=== PATIENT | male | born 1940 | race Caucasian/White ===

== ENCOUNTER 2019-07-02 14:49 | Emergency (ER) | payer MEDICARE ==
--- OUTSIDE RECORDS SUMMARY | 2019-07-02 14:50 | XMS REPORT ---
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 Active unspecified stricture type Assessment Bladder wall thickening N32.89 Active Assessment Prostate cancer C61 Active Medications Medication Code Code Instructions Start End Status Dosage System Date Date Zytiga [facility] 14643430255 500 MG Orally Active 2 tablets Once a day on an empty stomach Metoprolol [facility] 51672029746 25 MG Orally Active 1 tablet Tartrate Twice a day with food Losartan ND 49758141427 50 MG Orally Active as directed Potassium Senna S [facility] 18273577222 8.6-50 MG Active 1 tablet in Orally Once a the evening day as needed Tramadol HCl ND 96309499734 50 MG Orally Active 1 tablet as Once a day needed PrednisoLONE ND 79667804502 5 MG Orally Active 1 tablet Once a day with food or milk in the morning Clopidogrel [facility] 04694562738 75 MG Orally Active 1 tablet Bisulfate Once a day Lactulose [facility] 95579415366 20 GM/30ML Active 15 ml Orally Once a day Gentamicin [facility] 24672930745 0.3 % Active 1 drop into Sulfate Ophthalmic affected every 4 hrs eye Colace [facility] 32907351142 100 MG Orally Active 1 capsule Once a day as needed Tamsulosin HCl ND 55116114879 0.4 MG Orally Active 1 capsule Once a day Gabapentin ND 76259410997 300 MG Orally Active 1 capsule Once a day Results No Known Results Summary Purpose eClinicalWorks Submission
--- OUTSIDE RECORDS SUMMARY | 2019-07-02 14:50 | XMS REPORT ---
:1940 Author Organization eClinicalWorks Care Team Providers Name Role Phone Burke Llanos Provider Role Unavailable Allergies, Adverse Reactions, Alerts Substance Reaction Event Type N.K.D.A. Info Not Available Non Drug Allergy Problems Problem Type Condition Code Onset Dates Condition Status Problem Bladder wall thickening N32.89 Active Problem Prostate cancer C61 Active Assessment Prostate cancer C61 Active Assessment Bladder wall thickening N32.89 Active Medications Medication Code Code Instructions Start End Status Dosage System Date Date Tamsulosin HCl [facility] 37280247469 0.4 MG Orally Active 1 capsule Once a day Tramadol HCl ND 53636199403 50 MG Orally Active 1 tablet as Once a day needed PrednisoLONE ND 86089865886 5 MG Orally Active 1 tablet Once a day with food or milk in the morning Clopidogrel ND 40036509146 75 MG Orally Active 1 tablet Bisulfate Once a day Losartan ND 57590055234 50 MG Orally Active as directed Potassium Senna S ND 18644515217 8.6-50 MG Active 1 tablet in Orally Once a the evening day as needed Gabapentin ND 11511681310 300 MG Orally Active 1 capsule Once a day Gentamicin [facility] 54634456446 0.3 % Active 1 drop into Sulfate Ophthalmic affected every 4 hrs eye Zytiga [facility] 18172938282 500 MG Orally Active 2 tablets Once a day on an empty stomach Metoprolol ND 81304708099 25 MG Orally Active 1 tablet Tartrate Twice a day with food Lactulose [facility] 75054928471 20 GM/30ML Active 15 ml Orally Once a day Colace ND 50244344183 100 MG Orally Active 1 capsule Once a day as needed Results No Known Results Summary Purpose eClinicalWorks Submission
--- OUTSIDE RECORDS SUMMARY | 2019-07-02 14:50 | XMS REPORT ---
:1940 [facility] Address [address] [place] [address] Care Team Providers Name Role Phone Unavailable Unavailable Unavailable Problems This patient has no known problems. Allergies, Adverse Reactions, Alerts This patient has no known allergies or adverse reactions. Medications This patient has no known medications.
--- OUTSIDE RECORDS SUMMARY | 2019-07-02 14:50 | XMS REPORT ---
:1940 Author Organization eClinicalWorks Care Team Providers Name Role Phone [place] Provider Role Unavailable Allergies No Known Allergies Problems Problem Type Condition Code Onset Dates Condition Status Problem Bladder wall thickening N32.89 Active Problem Prostate cancer C61 Active Medications Medication Code System Code Instructions Start Date End Date Status Dosage Bactrim [facility] 00623706378 400-80 MG Orally Jun 03, Jun 04, Active 1 tablet Once a day 2019 2019 Results No Known Results Summary Purpose eClinicalWorks Submission
[2019-07-02 15:58] LABS: Absolute Lymphocytes (CBC) 1.5 K/uL (0.7-4.9); Basophils % 0.5 % (0-1.3); Hematocrit 38.1 % (39.6-49.0); Lymphocytes % 18.3 % (15.3-44.8); MPV 7.8 fL (7.6-11.3)
[2019-07-02 16:15] LABS: Protime INR 0.99
--- NOTE | 2019-07-02 16:26 | RAD REPORT ---
EXAM DESCRIPTION: Augie Single View07/02/2019 3:42 pm CLINICAL HISTORY: Metastatic bone cancer/weakness COMPARISON: 2017 FINDINGS: The lungs appear clear of acute infiltrate. The heart is normal size IMPRESSION: No acute abnormalities displayed
[2019-07-02 16:33] LABS: ALT/SGPT 23 U/L (12-78); AST/SGOT 27 U/L (15-37); Albumin 2.8 g/dL (3.4-5.0); Alkaline Phosphatase 112 U/L (45-117); Amylase Level 25 U/L (25-115); BUN Blood Urea Nitrogen 13 mg/dL (7-18); Bicarbonate 26 mmol/L (21-32); Bilirubin Direct 0.4 mg/dL (0-0.2); Bilirubin Total 0.9 mg/dL (0.2-1.0); CKMB Creatine Kinase MB 1.3 ng/mL (0.3-3.6); Creatine Phosphokinase 37 U/L (39-308); Glucose Level 106 mg/dL (74-106); Lipase 58 U/L (73-393); Potassium 3.2 mmol/L (3.5-5.1); Protein, Total 5.9 g/dL (6.4-8.2); Sodium Level 143 mmol/L (136-145); Troponin (Emerg Dept Use Only) < 0.02 ng/mL (0.0-0.045)
[2019-07-02] MEDS ORDERED: NA CHLORIDE 0.9% 500 ML ONE (16:42)
[2019-07-02 17:03] LABS: Urine Blood NEGATIVE (NEG); Urine Glucose NEGATIVE (NEG); Urine Protein NEGATIVE (NEG); Urine pH 5.5 (5.0-7.0)
[2019-07-02 17:11] LABS: Urine Bacteria <20 /HPF (NONE SEEN); Urine Culture Reflex Order NOT NEEDED; Urine RBC <5 /HPF (NONE SEEN)
[2019-07-02 17:12] LABS: Urine Mucus SLIGHT /HPF (NONE SEEN)
--- NOTE | 2019-07-02 18:32 | EDPHYS ---
Physician Documentation [facility] Name: Mk Paredes Age: 78 yrs Sex: Male : 1940 Arrival Date: 07/02/2019 Time: 14:53 Bed 14 Private MD: IRIS Physician Roque Bravo HPI: 07/02 15:36 This 78 yrs old Male presents to ER via Wheelchair with complaints of pm1 Weakness. 15:36 Onset: The symptoms/episode began/occurred yesterday. Associated signs and symptoms: pm1 Pertinent negatives: abdominal pain, chest pain, diarrhea, dysuria, fever, headache, shortness of breath, vomiting. Modifying factors: The patient symptoms are alleviated by nothing, the patient symptoms are aggravated by Patient reports poor sleep recently. Patient's daughter brought him tot ER today with complaints of weakness and lethargy. Patient denies any complaints except for poor sleep. The family is concerned that he might be dehydrated. They believe that he does not drink enough fluids. Historical: - Allergies: 15:36 No Known Allergies; ca1 - Home Meds: 15:36 losaratan Potassium [Active]; Prednisone Oral [Active]; tamsulosin 0.4 mg Oral cp24 1 ca1 cap once daily [Active]; aspirin 81 mg Oral chew 1 tab once daily [Active]; Furosemide Oral [Active]; Metoprolol Tartrate Oral [Active]; Doxycycline Oral [Active]; Zytiga oral oral [Active]; - PMHx: 15:36 Hypertension; Prostate Cancer; ca1 - PSHx: 15:36 Heart stents; ca1 - Immunization history:: Adult Immunizations up to date, Pneumococcal vaccine is up to date, Flu vaccine is up to date. - Coronavirus screen:: The patient has NOT traveled to [place] in the past 14 days. The patient has NOT had contact with known/suspected case of Coronavirus?. - Social history:: Smoking status: Patient denies any tobacco usage or history of. - Ebola Screening: : Patient negative for fever greater than or equal to 101.5 degrees Fahrenheit, and additional compatible Ebola Virus Disease symptoms Patient denies exposure to infectious person Patient denies travel to an Ebola-affected area in the 21 days before illness onset No symptoms or risks identified at this time. ROS: 15:36 Eyes: Negative for injury, pain, redness, and discharge, ENT: Negative for injury, pm1 pain, and discharge, Neck: Negative for injury, pain, and swelling, Cardiovascular: Negative for chest pain, palpitations, and edema, Respiratory: Negative for shortness of breath, cough, wheezing, and pleuritic chest pain, Abdomen/GI: Negative for abdominal pain, nausea, vomiting, diarrhea, and constipation, Back: Negative for injury and pain, : Negative for injury, bleeding, discharge, and swelling, MS/Extremity: Negative for injury and deformity, Skin: Negative for injury, rash, and discoloration. 15:36 Constitutional: Negative for fever, chills, and weight loss. 15:36 Neuro: Positive for generalized weakness, Negative for altered mental status, headache. Exam: 15:36 Constitutional: This is a well developed, well nourished patient who is awake, alert, pm1 and in no acute distress. Head/Face: Normocephalic, atraumatic. ENT: Nares patent. No nasal discharge, no septal abnormalities noted. Tympanic membranes are normal and external auditory canals are clear. Oropharynx with no redness, swelling, or masses, exudates, or evidence of obstruction, uvula midline. Mucous membranes moist. Neck: Trachea midline, no thyromegaly or masses palpated, and no cervical lymphadenopathy. Supple, full range of motion without nuchal rigidity, or vertebral point tenderness. No Meningismus. Chest/axilla: Normal chest wall appearance and motion. Nontender with no deformity. No lesions are appreciated. Respiratory: Lungs have equal breath sounds bilaterally, clear to auscultation and percussion. No rales, rhonchi or wheezes noted. No increased work of breathing, no retractions or nasal flaring. Abdomen/GI: Soft, non-tender, with normal bowel sounds. No distension or tympany. No guarding or rebound. No evidence of tenderness throughout. Back: No spinal tenderness. No costovertebral tenderness. Full range of motion. Skin: Warm, dry with normal turgor. Normal color with no rashes, no lesions, and no evidence of cellulitis. MS/ Extremity: Pulses equal, no cyanosis. Neurovascular intact. Full, normal range of motion. 15:36 Cardiovascular: Rate: tachycardic, Rhythm: regular, Pulses: no pulse deficits are appreciated, Heart sounds: normal, Edema: is not appreciated. Vital Signs: 15:36 BP 115 / 57; Pulse 113; Resp 17 S; Temp 98.1(O); Pulse Ox 97% on R/A; Weight 81.65 kg ca1 (R); Height 5 ft. 8 in. (172.72 cm) (R); Pain 0/10; 16:00 BP 105 / 51; Pulse 102; Resp 16 S; Pulse Ox 99% on R/A; ca1 16:30 BP 122 / 60; Pulse 97; Resp 19 S; Pulse Ox 99% on R/A; ca1 16:55 BP 124 / 50 Supine; Pulse 97; Resp 15 S; Pulse Ox 98% on R/A; ca1 16:57 BP 130 / 69 Sitting; Pulse 135; Resp 14 S; Pulse Ox 96% on R/A; ca1 17:10 BP 111 / 53; Pulse 95; Resp 18 S; Pulse Ox 100% on R/A; ca1 17:57 BP 117 / 60; Pulse 92; Resp 15 S; Pulse Ox 100% on R/A; ca1 18:45 BP 127 / 61; Pulse 92; Resp 16 S; Pulse Ox 97% on R/A; ca1 15:36 Body Mass Index 27.37 (81.65 kg, 172.72 cm) ca1 MDM: 15:12 Patient medically screened. 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 This is likely the pm1 cause for his elevated lactate. Patient without fever or signs of sepsis. 18:30 Data reviewed: vital signs. Data interpreted: Pulse oximetry: on room air is 100 %. pm1 Interpretation: normal. Counseling: I had a detailed discussion with the patient and/or guardian regarding: the historical points, exam findings, and any diagnostic results supporting the discharge/admit diagnosis, lab results, radiology results, the need for outpatient follow up, to return to the emergency department if symptoms worsen or persist or if there are any questions or concerns that arise at home. 07/02 15:23 Order name: Amylase, Serum pm1 07/02 15:23 Order name: Basic Metabolic Panel pm1 07/02 15:23 Order name: Blood Culture Adult (2) pm1 07/02 15:23 Order name: CBC with Diff pm1 07/02 15:23 Order name: Ckmb pm07/02 15:23 Order name: CPK pm1 11 15:23 Order name: Lactate pm07/02 15:23 Order name: LFT's pm07/02 15:23 Order name: Lipase pm07/02 15:23 Order name: Procalcitonin pm07/02 15:23 Order name: Protime (+inr) pm1 07/02 15:23 Order name: Ptt, Activated pm07/02 15:23 Order name: Troponin (emerg Dept Use Only) pm07/02 15:23 Order name: Urine Microscopic Only pm07/02 15:23 Order name: Chest Single View XRAY pm07/02 16:13 Order name: CBC with Automated Diff; Complete Time: 16:29 EDMS 07/02 16:25 Order name: Protime (+INR); Complete Time: 16:29 EDMS 07/02 16:25 Order name: PTT, Activated Partial Thromb; Complete Time: 16:29 EDMS 07/02 16:31 Order name: Lactate; Complete Time: 16:31 EDMS 07/02 16:34 Order name: Basic Metabolic Panel; Complete Time: 16:47 EDMS 07/02 16:34 Order name: Liver (Hepatic) Function; Complete Time: 16:47 EDMS 07/02 16:35 Order name: Creatine Phosphokinase; Complete Time: 16:47 EDMS 07/02 16:35 Order name: CKMB Creatine Kinase MB; Complete Time: 16:47 EDMS 07/02 16:35 Order name: Troponin (Emerg Dept Use Only); Complete Time: 16:47 EDMS 07/02 16:35 Order name: Amylase Level; Complete Time: 16:47 EDMS 07/02 16:35 Order name: Lipase; Complete Time: 16:47 EDMS 07/02 16:48 Order name: Procalcitonin; Complete Time: 16:50 EDMS 07/02 16:53 Order name: Urine Dipstick--Ancillary (enter results) 07/02 17:03 Order name: Urine Dipstick-Ancillary; Complete Time: 17:19 EDMS 07/02 17:13 Order name: Urine Microscopic Only; Complete Time: 17:19 EDMS 07/02 15:23 Order name: Accucheck; Complete Time: 16:13 pm07/02 15:23 Order name: Cardiac monitoring; Complete Time: 16:13 pm1 07/02 15:23 Order name: EKG - Nurse/Tech; Complete Time: 16:23 pm1 07/02 15:23 Order name: IV Saline Lock - Large Bore; Complete Time: 16:23 pm1 07/02 15:23 Order name: Labs collected and sent; Complete Time: 16:23 pm1 07/02 15:23 Order name: O2 Per Protocol; Complete Time: 16:23 pm1 07/02 15:23 Order name: O2 Sat Monitoring; Complete Time: 16:24 pm1 07/02 15:23 Order name: Urine Dipstick-Ancillary (obtain specimen); Complete Time: 17:57 pm1 07/02 16:31 Order name: RAD; Complete Time: 16:31 EDIN 07/02 16:31 Order name: Orthostatics; Complete Time: 17:06 pm1 Administered Medications: 17:00 Drug: NS 0.9% 500 ml Route: IV; Rate: bolus; Site: right antecubital; ca1 17:57 Follow up: Response: No adverse reaction; IV Status: Completed infusion ca1 Disposition: 07/02/19 18:31 Discharged to Home. Impression: Dehydration. - Condition is Stable. - Discharge Instructions: Dehydration, Elderly, Rehydration, Elderly. - Medication Reconciliation Form, Thank You Letter, Antibiotic Education, Prescription Opioid Use form. - Follow up: Emergency Department; When: As needed; Reason: Worsening of condition. Follow up: Private Physician; When: 2 - 3 days; Reason: Recheck today's complaints, Continuance of care, Re-evaluation by your physician. - Problem is new. - Symptoms have improved. Addendum: 07/04/2019 08:02 Co-signature as Attending Physician, Roque Bravo MD I agree with the assessment and c bray plan of care. Signatures: Dispatcher [employer] Roque Cole MD MD cha Marinas, Patrick, CELL PREPARER CELL PREPARER pm1 Phyllis Altman RN RN ca1 Corrections: (The following items were deleted from the chart) 07/02 18:52 18:31 07/02/2019 18:31 Discharged to Home. Impression: Dehydration. Condition is ca1 Stable. Forms are Medication Reconciliation Form, Thank You Letter, Antibiotic Education, Prescription Opioid Use. Follow up: Emergency Department; When: As needed; Reason: Worsening of condition. Follow up: Private Physician; When: 2 - 3 days; Reason: Recheck today's complaints, Continuance of care, Re-evaluation by your physician. Problem is new. Symptoms have improved. pm1
--- NOTE | 2019-07-02 18:32 | ER ---
Nurse's Notes [facility] Name: Mk Paredes Age: 78 yrs Sex: Male : 1940 Arrival Date: 07/02/2019 Time: 14:53 Bed 14 Private MD: Diagnosis: Dehydration Presentation: 07/02 15:10 Presenting complaint: Child states: He bray been lethargic sinc yesterday. He seems ca1 dehydrated too. 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 And is taking chemo pills and prednisone. Transition of care: patient was not received from another setting of care. Onset of symptoms was July 02, 2019. Risk Assessment: Do you want to hurt yourself or someone else? Patient reports no desire to harm self or others. Initial Sepsis Screen: Does the patient meet any 2 criteria? No. Patient's initial sepsis screen is negative. Does the patient have a suspected source of infection? No. Patient's initial sepsis screen is negative. Care prior to arrival: None. 15:10 Method Of Arrival: Wheelchair ca1 15:10 Acuity: SILVIA 2 ca1 Historical: - Allergies: 15:36 No Known Allergies; ca1 - Home Meds: 15:36 losaratan Potassium [Active]; Prednisone Oral [Active]; tamsulosin 0.4 mg Oral cp24 1 ca1 cap once daily [Active]; aspirin 81 mg Oral chew 1 tab once daily [Active]; Furosemide Oral [Active]; Metoprolol Tartrate Oral [Active]; Doxycycline Oral [Active]; Zytiga oral oral [Active]; - PMHx: 15:36 Hypertension; Prostate Cancer; ca1 - PSHx: 15:36 Heart stents; ca1 - Immunization history:: Adult Immunizations up to date, Pneumococcal vaccine is up to date, Flu vaccine is up to date. - Coronavirus screen:: The patient has NOT traveled to [place] in the past 14 days. The patient has NOT had contact with known/suspected case of Coronavirus?. - Social history:: Smoking status: Patient denies any tobacco usage or history of. - Ebola Screening: : Patient negative for fever greater than or equal to 101.5 degrees Fahrenheit, and additional compatible Ebola Virus Disease symptoms Patient denies exposure to infectious person Patient denies travel to an Ebola-affected area in the 21 days before illness onset No symptoms or risks identified at this time. Screenin:15 Abuse screen: Denies threats or abuse. Denies injuries from another. Nutritional ca1 screening: No deficits noted. Tuberculosis screening: No symptoms or risk factors identified. Fall Risk Fall in past 12 months (25 points). IV access (20 points). Ambulatory Aid- Crutches/Cane/Walker (15 pts). Gait- Weak (10 pts.). Total Barr Fall Scale indicates High Risk Score (45 or more points). Fall prevention measures have been instituted. Side Rails Up X 2 Family Present and informed to notify staff if the need to leave the bedside As available patient and family educated on Fall Prevention Program and Strategies. Assessment: 15:15 General: Appears in no apparent distress. comfortable, Behavior is calm, cooperative, ca1 appropriate for age. Pain: Denies pain. Neuro: Level of Consciousness is awake, alert, obeys commands, Oriented to person, place, time, situation, Appropriate for age. Cardiovascular: Heart tones S1 S2 present Capillary refill < 3 seconds Patient's skin is warm and dry. Cardiovascular: Edema is 1+ to left ankle, left foot, right ankle and right foot. Respiratory: Airway is patent Respiratory effort is even, unlabored, Respiratory pattern is regular, symmetrical, Breath sounds are clear bilaterally. GI: Abdomen is round non-distended, Bowel sounds present X 4 quads. Abd is soft and non tender X 4 quads. : No signs and/or symptoms were reported regarding the genitourinary system. EENT: No signs and/or symptoms were reported regarding the EENT system. Derm: Skin is intact, is healthy with good turgor, Skin is pink, warm \T\ dry. Musculoskeletal: Circulation, motion, and sensation intact. Capillary refill < 3 seconds, Range of motion: intact in all extremities, Swelling present in left leg. 16:20 Reassessment: Patient appears in no apparent distress at this time. No changes from ca1 previously documented assessment. Patient and/or family updated on plan of care and expected duration. Pain level reassessed. Patient is alert, oriented x 3, equal unlabored respirations, skin warm/dry/pink. 16:30 Reassessment: CRITICAL LAB: LAC 3.4. Notified provider. ca1 17:06 Reassessment: Patient appears in no apparent distress at this time. Patient is alert, ca1 oriented x 3, equal unlabored respirations, skin warm/dry/pink. Orthostatics done. Pt tachycardic upon position changes. Terminated procedure at sitting. Notified provider. 17:46 Reassessment: Patient appears in no apparent distress at this time. Patient and/or ca1 family updated on plan of care and expected duration. Pain level reassessed. Patient is alert, oriented x 3, equal unlabored respirations, skin warm/dry/pink. No complaints at this time. 18:45 Reassessment: Patient appears in no apparent distress at this time. Patient is alert, ca1 oriented x 3, equal unlabored respirations, skin warm/dry/pink. Vital Signs: 15:36 BP 115 / 57; Pulse 113; Resp 17 S; Temp 98.1(O); Pulse Ox 97% on R/A; Weight 81.65 kg ca1 (R); Height 5 ft. 8 in. (172.72 cm) (R); Pain 0/10; 16:00 BP 105 / 51; Pulse 102; Resp 16 S; Pulse Ox 99% on R/A; ca1 16:30 BP 122 / 60; Pulse 97; Resp 19 S; Pulse Ox 99% on R/A; ca1 16:55 BP 124 / 50 Supine; Pulse 97; Resp 15 S; Pulse Ox 98% on R/A; ca1 16:57 BP 130 / 69 Sitting; Pulse 135; Resp 14 S; Pulse Ox 96% on R/A; ca1 17:10 BP 111 / 53; Pulse 95; Resp 18 S; Pulse Ox 100% on R/A; ca1 17:57 BP 117 / 60; Pulse 92; Resp 15 S; Pulse Ox 100% on R/A; ca1 18:45 BP 127 / 61; Pulse 92; Resp 16 S; Pulse Ox 97% on R/A; ca1 15:36 Body Mass Index 27.37 (81.65 kg, 172.72 cm) ca1 ED Course: 14:53 Patient arrived in ED. as 15:09 Alli Fallon NP is PHCP. pm1 15:09 Roque Bravo MD is Attending Physician. pm1 15:10 Phyllis Altman RN is Primary Nurse. ca1 15:15 Patient has correct armband on for positive identification. Placed in gown. Bed in low ca1 position. Call light in reach. Side rails up X2. panel monitor on. Pulse ox on. NIBP on. Warm blanket given. 15:31 Triage completed. ca1 15:36 Arm band placed on right wrist. ca1 15:48 No provider procedures requiring assistance completed. Inserted saline lock: 20 gauge ca1 in right antecubital area, using aseptic technique. Blood collected. 15:48 Initial lab(s) drawn, by me, sent to lab. First set of blood cultures drawn by me. ca1 16:08 Second set of blood cultures drawn by me. ca1 18:51 IV discontinued, intact, bleeding controlled, No redness/swelling at site. Pressure ca1 dressing applied. Administered Medications: 17:00 Drug: NS 0.9% 500 ml Route: IV; Rate: bolus; Site: right antecubital; ca1 17:57 Follow up: Response: No adverse reaction; IV Status: Completed infusion ca1 Outcome: 18:31 Discharge ordered by MD. pm1 18:51 Discharged to home ambulatory, with family. ca1 18:51 Condition: stable 18:51 Discharge instructions given to patient, family, Instructed on discharge instructions, follow up and referral plans. Demonstrated understanding of instructions, follow-up care. 18:52 Patient left the ED. ca1 Signatures: Mora Siddiqui Patrick, BUSINESS MAIL ENTRY CLERK BUSINESS MAIL ENTRY CLERK pm1 Phyllis Altman RN RN ca1
--- NOTE | 2019-07-03 08:54 | EKG ---
Test Date: 2019-07-02 Test Time: 16:10:14 Mime Artist: RV MEASUREMENT RESULTS: Intervals: Rate: 102 DE: 160 QRSD: 64 QT: 330 QTc: 430 [place]: P: 51 DE: 160 QRS: 50 T: 49 INTERPRETIVE STATEMENTS: Sinus tachycardia with premature atrial complexes Low voltage QRS Nonspecific ST and T wave abnormality Abnormal ECG Compared to ECG 02/04/2018 16:38:30 Atrial premature complex(es) now present Low QRS voltage now present ST (T wave) deviation still present Electronically Signed On 07-03-19 08:52:53 MULTI SHARE PROGRAM COORDINATOR by Apolinar Garcia
[2019-07-04 09:48] VITALS: TEMP 98.1
[2019-07-04 09:56] VITALS: BP 127/61; O2SAT 97
== END 2019-07-02 18:52 | disposition home or self-care (01) ==
LOC: ER 14:49
DX: E86.0 Dehydration (principal); I10 Essential (primary) hypertension; Z85.46 Personal history of malignant neoplasm of prostate
CPT/HCPCS: 93005; 87040 ×2; 85025; 80048; 36415; 82150; 82550; 85610; 80076; 83605; 85730; 84484; 82553; 83690; 84145; 71045; 96360; 99284; J7040; 81003; 81015

== ENCOUNTER 2020-02-24 19:28 | Observation (INO) | payer MEDICARE ==
[2020-02-24 20:30] LABS: Absolute Lymphocytes (CBC) 0.9 K/uL (0.7-4.9); Basophils % 0.3 % (0-1.3); Hematocrit 38.5 % (39.6-49.0); Lymphocytes % 6.9 % (15.3-44.8); MPV 7.6 fL (7.6-11.3)
[2020-02-24 20:31] LABS: Protime INR 0.97
--- NOTE | 2020-02-24 20:35 | RAD REPORT ---
EXAM DESCRIPTION: CT - [id number] - 02/24/2020 8:26 pm CLINICAL HISTORY: Trauma, head and neck injury. fall, weakness COMPARISON: CT HEAD CSPINE MPR WO CONTRAST dated 04/07/2015; RAD THERAPY FLD PLACE NECK dated 013 TECHNIQUE: Axial 5 mm thick images of the head were obtained. Axial 2 mm thick images of the cervical spine were obtained with sagittal and coronal reconstruction images generated and reviewed. All CT scans are performed using dose optimization technique as appropriate and may include automated exposure control or mA/KV adjustment according to patient size. FINDINGS: CT HEAD WITHOUT CONTRAST: No acute hemorrhage, hydrocephalus or extra-axial collection is identified.Advanced brain atrophy.No areas of brain edema or midline shift. Previous right mastoidectomy noted. The left mastoid appears clear. The paranasal sinuses are clear.T he calvarium is intact. CT CERVICAL SPINE WITHOUT CONTRAST: No fracture or subluxation.Mild lower cervical spondylosis.No prevertebral soft tissues swelling is i dentified. Mild carotid atherosclerosis. IMPRESSION: No acute intracranial or cervical spine findings.
[2020-02-24 20:43] LABS: Magnesium 2.4 mg/dL (1.8-2.4); Potassium 3.4 mmol/L (3.5-5.1); Troponin (Emerg Dept Use Only) 0.03 ng/mL (0.0-0.045)
--- NOTE | 2020-02-24 20:48 | RAD REPORT ---
EXAM DESCRIPTION: RAD - Pelvis - 02/24/2020 8:33 pm CLINICAL HISTORY: fall COMPARISON: Pelvis dated 02/04/2018 FINDINGS: No fracture or dislocation evident.
[2020-02-24] MEDS ORDERED: NA CHLORIDE 0.9% 250 ML ONE (22:02)
[2020-02-24 22:12] LABS: Blood Morphology Comment NOT SEEN (NOT SEEN); Platelet Estimate ADEQ
--- NOTE | 2020-02-24 22:19 | EDPHYS ---
Physician Documentation [facility] Name: Mk Paredes Age: 79 yrs Sex: Male : 1940 Arrival Date: 02/24/2020 Time: 19:29 Bed 2 Private MD: ED Physician Ishmael Wang HPI: 02/23 19:50 This 79 yrs old Male presents to ER via EMS with complaints of Weakness. cp 19:50 The patient presents to the emergency department with weakness of the right leg and cp left leg. 19:50 Onset: The symptoms/episode began/occurred today. cp 19:50 Patient's baseline: Neuro: alert and fully oriented, Motor: no deficits, Ambulation: cp walks with assist only, uses walker, Speech: normal. Patient reports he slid out of chair earlier today and was unable to get himself up off ground. Patient was found by family after approximately 6 hours of lying on ground. Historical: - Allergies: 19:39 No Known Allergies; jb4 - Home Meds: 19:39 Furosemide Oral [Active]; losaratan Potassium [Active]; tamsulosin 0.4 mg Oral cp24 1 jb4 cap once daily [Active]; Prednisone Oral [Active]; mematine [Active]; abiraterone oral oral [Active]; - PMHx: 19:39 Prostate Cancer; Hypertension; Dementia; jb4 - PSHx: 19:39 Heart stents; jb4 - Immunization history:: Adult Immunizations up to date. - Social history:: Smoking status: Patient denies any tobacco usage or history of. Patient/guardian denies using alcohol, street drugs. ROS: 19:55 Constitutional: Negative for body aches, chills, fever, poor PO intake. cp 19:55 Eyes: Negative for injury, pain, redness, and discharge. cp 19:55 ENT: Negative for ear pain, sore throat. cp 19:55 Cardiovascular: Negative for chest pain, palpitations. 19:55 Respiratory: Negative for cough, shortness of breath, wheezing. 19:55 Abdomen/GI: Negative for abdominal pain, nausea, vomiting, and diarrhea. 19:55 Neuro: Positive for weakness, Negative for altered mental status, headache, loss of cp consciousness, syncope. 19:55 All other systems are negative. Exam: 20:00 Constitutional: The patient appears in no acute distress, alert, awake, cp non-diaphoretic, non-toxic, well developed, well nourished. 20:00 Head/Face: Normocephalic, atraumatic. cp 20:00 Eyes: Periorbital structures: appear normal, Conjunctiva: normal, no exudate, no cp injection, Sclera: no appreciated abnormality, Lids and lashes: appear normal, bilaterally. 20:00 ENT: External ear(s): are unremarkable, Nose: is normal, Mouth: Lips: moist, Oral cp mucosa: moist, Posterior pharynx: Airway: no evidence of obstruction, patent. 20:00 Neck: C-spine: vertebral tenderness, is not appreciated, crepitus, is not appreciated, ROM/movement: is normal, is supple, without pain, no range of motions limitations. 20:00 Chest/axilla: Inspection: normal, Palpation: is normal, no crepitus, no tenderness. 20:00 Cardiovascular: Rate: tachycardic, Rhythm: regular, JVD: is not appreciated. 20:00 Respiratory: the patient does not display signs of respiratory distress, Respirations: normal, no use of accessory muscles, no retractions, labored breathing, is not present, Breath sounds: are clear throughout, no decreased breath sounds. 20:00 Abdomen/GI: Inspection: abdomen appears normal, Bowel sounds: active, all quadrants, Palpation: abdomen is soft and non-tender, in all quadrants, rebound tenderness, is not appreciated, voluntary guarding, is not appreciated, involuntary guarding, is not appreciated. 20:00 Back: pain, is absent. 20:00 Musculoskeletal/extremity: Exam is negative for deformity, injury. 20:00 Skin: cellulitis, is not appreciated, no rash present. 20:00 Neuro: Orientation: to person, place \T\ time. Mentation: is normal, Motor: general weakness in lower limbs, Sensation: no obvious gross deficits. 20:15 ECG was reviewed by the Attending Physician. cp Vital Signs: 19:31 BP 147 / 94; Pulse 110; Resp 16; Temp 98.1(TE); Pulse Ox 97% on R/A; Weight 90.72 kg jb4 (R); Height 5 ft. 8 in. (172.72 cm) (R); Pain 7/10; 21:00 BP 115 / 67; Pulse 99; Resp 16; Pulse Ox 97% on R/A; Pain 0/10; jb4 22:00 BP 143 / 79; Pulse 101; Resp 12; Pulse Ox 98% on R/A; Pain 0/10; jb4 23:00 BP 145 / 87; Pulse 99; Resp 16; Pulse Ox 96% on R/A; jb4 19:31 Body Mass Index 30.41 (90.72 kg, 172.72 cm) 4 MDM: 19:45 Patient medically screened. cp 22:15 Data reviewed: vital signs, nurses notes, lab test result(s), EKG, radiologic studies, cp CT scan. 22:17 Physician consultation: Kendall Branham MD was called at 22:10, was contacted at 22:10, regarding admission, to the telemetry unit. patient's condition. 02/23 19:47 Order name: Basic Metabolic Panel; Complete Time: 21:05 cp 02/23 21:06 Interpretation: Normal except: K 3.4; GLUC 130; BUN 26; GFR 54. cp 02/23 19:47 Order name: CBC with Diff; Complete Time: 22:18 cp 02/23 21:06 Interpretation: Normal except: WBC 12.6; RBC 3.90; HGB 12.9; HCT 38.5; MCV 98.8; STEPHANIE% cp 87.3; LYM% 6.9; NEUT A 11.0. 02/23 19:47 Order name: Magnesium; Complete Time: 21:05 cp 02/23 19:47 Order name: PT-INR; Complete Time: 21:05 cp 02/23 19:47 Order name: Troponin (emerg Dept Use Only); Complete Time: 21:05 cp 02/23 22:08 Interpretation: Reviewed. cp 02/23 19:47 Order name: Urine Microscopic Only; Complete Time: 23:05 cp 02/23 23:05 Interpretation: Normal except: URBC 20-50. cp 02/23 19:47 Order name: CPK; Complete Time: 21:05 cp 02/23 21:06 Interpretation: Abnormal: CPK 730. cp 02/23 20:40 Order name: Manual Differential; Complete Time: 22:18 EDMS 02/23 22:19 Interpretation: Normal except: BANDS [F] 5; LYM 8. cp 02/23 22:21 Order name: Procalcitonin cp 02/23 22:21 Order name: Blood Culture Adult (2) cp 02/23 22:21 Order name: Lactate cp 02/23 22:35 Order name: Urine Dipstick--Ancillary (enter results); Complete Time: 23:05 ds4 02/23 23:10 Order name: Basic Metabolic Panel EDMS 02/23 23:10 Order name: Basic Metabolic Panel EDMS 02/23 19:47 Order name: EKG; Complete Time: 19:48 cp 02/23 19:47 Order name: Cardiac monitoring; Complete Time: 19:55 cp 02/23 19:47 Order name: EKG - Nurse/Tech; Complete Time: 20:10 cp 02/23 19:47 Order name: IV Saline Lock; Complete Time: 19:55 cp 02/23 19:47 Order name: Labs collected and sent; Complete Time: 20:10 cp 02/23 19:47 Order name: O2 Per Protocol; Complete Time: 19:55 cp 02/23 19:47 Order name: XRAY Pelvis; Complete Time: 21:05 cp 02/23 19:47 Order name: CT Head C Spine; Complete Time: 21:05 cp 02/23 23:10 Order name: Consistent Carb (ADA) 1800 Nemesio EDMS 02/23 23:10 Order name: CBC with Automated Diff EDMS 02/23 23:10 Order name: CBC with Automated Diff EDMS 02/23 19:47 Order name: O2 Sat Monitoring; Complete Time: 19:55 cp 02/23 19:47 Order name: Urine Dipstick-Ancillary (obtain specimen); Complete Time: 21:27 cp EC:15 Rate is 102 beats/min. Rhythm is regular. MS interval is normal. QRS interval is cp normal. QT interval is normal. T waves are Inverted in lead III. Interpreted by me. Reviewed by me. Administered Medications: 21:58 Drug: NS 0.9% 250 ml Route: IV; Rate: bolus; Site: right antecubital; jb4 23:23 Follow up: Response: No adverse reaction; IV Status: Completed infusion jb4 23:01 Drug: NS 0.9% 1000 ml Route: IV; Rate: 75 ml/hr; Site: right antecubital; jb4 23:22 Follow up: Response: No adverse reaction; IV Status: Infusion continued upon admission jb4 23:20 Drug: Rocephin 1 grams Route: IV; Rate: calculated rate; Site: right antecubital; 23:22 Follow up: Response: No adverse reaction; IV Status: Completed infusion jb 23:41 Drug: NS 0.9% 1000 ml Route: IV; Rate: 1 bolus; Site: right antecubital; 23:41 Drug: NS 0.9% 1000 ml Route: IV; Rate: 1 bolus; Site: right antecubital; Disposition: 02/24 07:07 Co-signature as Attending Physician, Ishmael Wang MD. [email or web address] Disposition: 02/24/20 22:18 Hospitalization ordered by Kendall Branham for Observation. Preliminary diagnosis are Weakness, Rhabdomyolysis. - Bed requested for Telemetry/MedSurg (observation). - Status is Observation. - Condition is Stable. - Problem is new. - Symptoms are unchanged. Signatures: Dispatcher [employer] EDMS Roque Walker PA PA cp Garcia, Cindy, RN RN Bebeto Bai RN RN [facility] Kiana Moncada Ishmael Wang MD MD [email or web address] Corrections: (The following items were deleted from the chart) 02/23 22:33 22:[address] [facility] 23:14 22:18 Hospitalization Ordered by Kendall Branham MD for Observation. Preliminary cg diagnosis is Weakness; Rhabdomyolysis. Bed requested for Telemetry/MedSurg (observation). Status is Observation. Condition is Stable. Problem is new. Symptoms are unchanged. 02/24 00:06 02/23 23:14 02/24/2020 22:18 Hospitalization Ordered by Kendall Branham MD for Observation. Preliminary diagnosis is Weakness; Rhabdomyolysis. Bed requested for Telemetry/MedSurg (observation). Status is Observation. Condition is Stable. Problem is new. Symptoms are unchanged. cg
--- NOTE | 2020-02-24 22:19 | ER ---
Nurse's Notes [facility] Name: Mk Paredes Age: 79 yrs Sex: Male : 1940 Arrival Date: 02/24/2020 Time: 19:29 Bed 2 Private MD: Diagnosis: Weakness;Rhabdomyolysis Presentation: 02/23 19:31 Chief complaint: EMS states: PT slid out of his chair at home and was on the ground for jb4 6 hours. Normally the patient is able to get up and ambulate with a walker. His legs were in an abnormal position under him and he was too weak to stand. Coronavirus screen: Client denies travel out of the [place] in the last 14 days. At this time, the client does not indicate any symptoms associated with coronavirus-19. Ebola Screen: No symptoms or risks identified at this time. Initial Sepsis Screen: Does the patient meet any 2 criteria? HR > 90 bpm. Yes Does the patient have a suspected source of infection? No. Patient's initial sepsis screen is negative. Risk Assessment: Do you want to hurt yourself or someone else? Patient reports no desire to harm self or others. Onset of symptoms was February 24, 2020. Transition of care: patient was not received from another setting of care. 19:31 Method Of Arrival: EMS: [facility] jb4 19:31 Acuity: SILVIA 3 jb4 Historical: - Allergies: 19:39 No Known Allergies; jb4 - Home Meds: 19:39 Furosemide Oral [Active]; losaratan Potassium [Active]; tamsulosin 0.4 mg Oral cp24 1 jb4 cap once daily [Active]; Prednisone Oral [Active]; mematine [Active]; abiraterone oral oral [Active]; - PMHx: 19:39 Prostate Cancer; Hypertension; Dementia; jb4 - PSHx: 19:39 Heart stents; jb4 - Immunization history:: Adult Immunizations up to date. - Social history:: Smoking status: Patient denies any tobacco usage or history of. Patient/guardian denies using alcohol, street drugs. Screenin:46 Abuse screen: Denies threats or abuse. Nutritional screening: No deficits noted. jb4 Tuberculosis screening: No symptoms or risk factors identified. Fall Risk Fall in past 12 months (25 points). Secondary diagnosis (15 points) dementia, IV access (20 points). Gait- Weak (10 pts.). Mental Status- Oriented to own ability (0 pts). Total Barr Fall Scale indicates High Risk Score (45 or more points). Fall prevention measures have been instituted. Side Rails Up X 2 Placed Close to Nursing Station 1:1 Attendant Assigned Family Present and informed to notify staff if the need to leave the bedside As available patient and family educated on Fall Prevention Program and Strategies. Assessment: 19:46 General: Appears in no apparent distress. comfortable, Behavior is calm, cooperative, jb4 appropriate for age. Pain: Denies pain. Neuro: Level of Consciousness is awake, alert, obeys commands, Oriented to person, place, time, situation. Cardiovascular: Patient's skin is warm and dry. Pulses are 2+ in right dorsalis pedis artery and left dorsalis pedis artery. Respiratory: Airway is patent Respiratory effort is even, unlabored, Respiratory pattern is regular, symmetrical. GI: No signs and/or symptoms were reported involving the gastrointestinal system. : No signs and/or symptoms were reported regarding the genitourinary system. EENT: No signs and/or symptoms were reported regarding the EENT system. Derm: Skin is intact, Skin is pink, warm \T\ dry. Musculoskeletal: Circulation, motion, and sensation intact. Capillary refill is > 3 seconds, in bilateral toes. Range of motion: Swelling present in lateral aspect of right calf, right calf, medial aspect of right calf, right torres, lateral aspect of left calf, left calf, medial aspect of left calf and left torres. 21:00 Reassessment: Patient and/or family updated on plan of care and expected duration. Pain jb4 level reassessed. PT is resting in bed with eyes closed, respirations are even and unlabored. No s/s of pain or distress are noted. Family remains at the bedside. 22:00 Reassessment: Patient appears in no apparent distress at this time. Patient and/or jb4 family updated on plan of care and expected duration. Pain level reassessed. Patient is alert, oriented x 3, equal unlabored respirations, skin warm/dry/pink. Pt assisted with changing his brief. Peritoneal care performed. 23:00 Reassessment: Patient appears in no apparent distress at this time. Patient and/or jb4 family updated on plan of care and expected duration. Pain level reassessed. Patient is alert, oriented x 3, equal unlabored respirations, skin warm/dry/pink. Vital Signs: 19:31 BP 147 / 94; Pulse 110; Resp 16; Temp 98.1(TE); Pulse Ox 97% on R/A; Weight 90.72 kg jb4 (R); Height 5 ft. 8 in. (172.72 cm) (R); Pain 7/10; 21:00 BP 115 / 67; Pulse 99; Resp 16; Pulse Ox 97% on R/A; Pain 0/10; jb4 22:00 BP 143 / 79; Pulse 101; Resp 12; Pulse Ox 98% on R/A; Pain 0/10; jb4 23:00 BP 145 / 87; Pulse 99; Resp 16; Pulse Ox 96% on R/A; jb4 19:31 Body Mass Index 30.41 (90.72 kg, 172.72 cm) jb4 ED Course: 19:29 Patient arrived in ED. cf2 19:30 Bebeto Bai, RN is Primary Nurse. jb4 19:36 Triage completed. jb4 19:41 Roque Walker PA is PHCP. cp 19:41 Ishmael Wang MD is Attending Physician. cp 19:46 Arm band placed on right wrist. jb4 19:46 Patient has correct armband on for positive identification. Bed in low position. Call jb4 light in reach. Side rails up X 1. set key driver on. Pulse ox on. NIBP on. 20:19 EKG done, by ED staff, reviewed by Bebeto Bai RN. Maintain EMS IV. Dressing intact. ds4 Good blood return noted. Site clean \T\ dry. Gauge \T\ site: 20 - Right AC. 20:26 CT Head C Spine In Process Unspecified. EDMS 20:33 XRAY Pelvis In Process Unspecified. EDMS 22:18 Kendall Branham MD is Hospitalizing Provider. cp 22:34 Urine Microscopic Only Sent. ds4 23:34 No provider procedures requiring assistance completed. Patient admitted, IV remains in jb4 place. Administered Medications: 21:58 Drug: NS 0.9% 250 ml Route: IV; Rate: bolus; Site: right antecubital; jb4 23:23 Follow up: Response: No adverse reaction; IV Status: Completed infusion jb4 23:01 Drug: NS 0.9% 1000 ml Route: IV; Rate: 75 ml/hr; Site: right antecubital; [facility] 23:22 Follow up: Response: No adverse reaction; IV Status: Infusion continued upon admission jb 23:20 Drug: Rocephin 1 grams Route: IV; Rate: calculated rate; Site: right antecubital; 23:22 Follow up: Response: No adverse reaction; IV Status: Completed infusion [facility] 23:41 Drug: NS 0.9% 1000 ml Route: IV; Rate: 1 bolus; Site: right antecubital; 23:41 Drug: NS 0.9% 1000 ml Route: IV; Rate: 1 bolus; Site: right antecubital; Outcome: 22:18 Decision to Hospitalize by Provider. cp 23:34 Admitted to Med/surg accompanied by nurse, via stretcher, room 224, with chart. [facility] 23:34 Condition: stable 23:34 Discharge instructions given to patient, family, Instructed on the need for admit, Demonstrated understanding of instructions. 02/24 00:06 Patient left the ED. Signatures: Dispatcher [employer] EDMS Aquiles Sagastume ds4 Roque Walker PA PA cp Bryson, James, RN RN jb4 Kiana Moncada Dominic Melendrez2
[2020-02-24] MEDS ORDERED: NA CHLORIDE 0.9% 1,000 ML ONE (22:55)
[2020-02-24 23:02] LABS: Urine Blood TRACE (NEG); Urine Glucose NEGATIVE (NEG); Urine Protein 1+ (NEG); Urine Specific Gravity 1.025 (1.005-1.030)
[2020-02-24 23:03] LABS: Urine Bacteria <20 /HPF (NONE SEEN); Urine Culture Reflex Order NOT NEEDED; Urine RBC 20-50 /HPF (NONE SEEN)
[2020-02-24] MEDS ORDERED: ONDANSETRON 4 MG/2 ML VIAL IV PRN (23:08)
[2020-02-24] MEDS ORDERED: CEFTRIAXONE/SWI 1gm 1 GM/10 ML SYR ONE (23:28)
[2020-02-24] MEDS ORDERED: NA CHLORIDE 0.9% 2,000 ML ONE (23:50)
[2020-02-25 01:01] VITALS: BMI 28.9
[2020-02-25] MEDS: ACETAMINOPHEN 500 MG TAB PO PRN ×2 (01:27→06:34)
[2020-02-25] MEDS: NA CHLORIDE 0.9% 1,000 ML IV SCH ×2 (01:32→13:09)
[2020-02-25 06:04] LABS: Potassium 3.7 mmol/L (3.5-5.1)
[2020-02-25 06:06] LABS: Absolute Lymphocytes (CBC) 1.2 K/uL (0.7-4.9); Basophils % 0.8 % (0-1.3); Hematocrit 32.6 % (39.6-49.0); Lymphocytes % 14.4 % (15.3-44.8); MPV 7.5 fL (7.6-11.3); RBC Red Blood Cell Count 3.28 M/uL (4.33-5.43)
[2020-02-25] MEDS ORDERED: INFLUENZA VACCINE (for 3y+) 0.5 ML DOSE IMVAC ONE (08:00)
[2020-02-25] MEDS ORDERED: CEFTRIAXONE 1 GM/NS 50 ML 1 GM/50 ML BAG IV SCH (09:00)
[2020-02-25] MEDS: CEFTRIAXONE/SWI 1gm 1 GM/10 ML SYR IV SCH ×2 (09:50→20:21)
[2020-02-25] MEDS: ABIRATERONE 250 MG PO SCH (20:21)
[2020-02-25] MEDS: TAMSULOSIN 0.4 MG SR CAP PO SCH (20:21)
[2020-02-25] MEDS: predniSONE 5 MG TAB PO SCH (20:21)
[2020-02-26] MEDS: NA CHLORIDE 0.9% 1,000 ML IV SCH ×2 (03:47→15:32)
[2020-02-26 04:33] LABS: Absolute Lymphocytes (CBC) 1.1 K/uL (0.7-4.9); Basophils % 0.7 % (0-1.3); Hematocrit 33.6 % (39.6-49.0); Lymphocytes % 12.9 % (15.3-44.8); MPV 7.5 fL (7.6-11.3); RBC Red Blood Cell Count 3.37 M/uL (4.33-5.43)
[2020-02-26 04:47] LABS: Potassium 4.1 mmol/L (3.5-5.1)
--- NOTE | 2020-02-26 05:59 | EKG ---
Test Date: 2020-02-24 Test Time: 20:09:00 Air Intelligence Officer: TAVO MEASUREMENT RESULTS: Intervals: Rate: 102 CO: 182 QRSD: 70 QT: 332 QTc: 432 [place]: P: 53 CO: 182 QRS: 34 T: 35 INTERPRETIVE STATEMENTS: Sinus tachycardia Septal infarct, age undetermined Abnormal ECG Compared to ECG 07/02/2019 16:10:14 Myocardial infarct finding now present Atrial premature complex(es) no longer present ST (T wave) deviation no longer present Electronically Signed On 02-26-20 05:56:08 CDT by Arley Lara
[2020-02-26] MEDS: LOSARTAN POTASSIUM 50 MG TABLET PO SCH (08:47)
[2020-02-26] MEDS: predniSONE 5 MG TAB PO SCH ×2 (08:48→21:10)
[2020-02-26] MEDS: MEMANTINE HCL 10 MG TABLET PO SCH (08:48)
[2020-02-26] MEDS: ABIRATERONE 250 MG PO SCH ×2 (08:48→21:07)
[2020-02-26] MEDS: CEFTRIAXONE/SWI 1gm 1 GM/10 ML SYR IV SCH ×2 (08:49→21:10)
--- NOTE | 2020-02-26 17:55 | PN ---
Date of Progress Note: 02/25/2020 The patient is still quite sleepy and lethargic and has intermittent episodes of disorientation; langley jeniffer, this is keeping somewhat with his progressive dementia as far as his physical concern. He seems stabilized. Probably, he had a little rhabdomyolysis and we will have PT work with the patient so t hat he could be discharged perhaps in the next 24 hours. HR/MODL Voice ID: [id number] Report ID: [id number]
--- NOTE | 2020-02-26 18:16 | PN ---
Date of Progress Note: 02/26/2020 The patient is much more alert today and orientated, blood work stabilized. Rehab suggested physical therapy on the rehab unit and this will be considered. If in fact the insurance company approves it , I think for release to 3 or 4 days until he regains his strength. This would be recommended and ap propriate. HR/MODL Voice ID: [id number] Report ID: [id number]
[2020-02-26] MEDS: TAMSULOSIN 0.4 MG SR CAP PO SCH (21:10)
[2020-02-27] MEDS: ACETAMINOPHEN 500 MG TAB PO PRN (02:50)
[2020-02-27 05:38] LABS: Basophils % 0.6 % (0-1.3); Hematocrit 36.1 % (39.6-49.0); Lymphocytes % 12.3 % (15.3-44.8); RBC Red Blood Cell Count 3.61 M/uL (4.33-5.43)
[2020-02-27 05:42] LABS: Potassium 3.9 mmol/L (3.5-5.1)
[2020-02-27 08:49] LABS: Urine Appearance CLEAR; Urine Bilirubin NEGATIVE (NEG); Urine Blood NEGATIVE (NEG); Urine Color YELLOW; Urine Glucose NEGATIVE (NEG); Urine Protein NEGATIVE (NEG); Urine Specific Gravity <=1.005 (1.005-1.030); Urine Urobilinogen 0.2 mg/dL (0.2-1.0); Urine pH 6.5 (5.0-7.0)
[2020-02-27 08:53] LABS: Urine Microscopic Reflex NO UMIC
[2020-02-27] MEDS: CEFTRIAXONE/SWI 1gm 1 GM/10 ML SYR IV SCH ×2 (09:00→09:45)
--- OUTSIDE RECORDS SUMMARY | 2020-02-27 09:03 | XMS REPORT | Continuity of Care Document ---
:1940 Author Organization [facility] t Address [address] [place] [address] Care Team Providers Name Role Phone Yovany Galaviz DMD Attending Clinician Nam OV R Attending Clinician Problems Condition Condition Condition Status Onset Resolution Last Treating Co mments Source Name Details Category Date Date Treatment Clinician Date Bladder Bladder Diagnosis [facility] thickening thickening Me moria l [facility] Clinics Prostate Prostate Diagnosis Active [facility] cancer cancer [facility]ics Stricture Stricture Diagnosis Active [facility] of male of male [facility] - urethra, urethra, Memori a unspecifie unspecifie l d d [facility] stricture stricture ent type type Clinics Allergies, Adverse Reactions, Alerts This patient has no known allergies or adverse reactions. Medications Ordered Filled Start Stop Current Ordering Indication Dosage Frequency Signature Comments Components Source Medication Medication Date Date Medication? Clinician (SIG) Name Name Bren Correia Yes Burke [address] [facility] [place] on an [facility] - empty Memoria stomach l [facility] Clinics Metoprolol Metoprolol Yes Burke [address] [facility] [address] Tartrate Tartrate [place] with food [facility] Losartan Losartan Yes Burke as [facility] Potassium Potassium [place] directed [facility] Senna S Senna S Yes Burke [address] [place] in the [facility] - evening as Memoria needed l [facility] ent Clinics Tramadol Tramadol Yes Burke [address] [address] HCl HCl [place] as needed [facility] PrednisoLON PrednisoLON Yes Burke [address] [facility] [address] E E [place] with food [facility] - or milk in [facility] the l morning [facility] ent Clinics Clopidogrel Clopidogrel Yes Burke [address] Bisulfate Bisulfate [place] [facility] Clinics Lactulose Lactulose Yes Burke [address] [place] [facility] - [facility] l [facility] ent Clinics Gentamicin Gentamicin Yes Burke [address] Sulfate Sulfate [place] into [facility] - affected [facility] eye l Outpati ent Clinics Colace Colace Yes Burke [address] [place] as needed [facility] - [facility] l [facility] ent Clinics Tamsulosin Tamsulosin Yes Burke [address] HCl HCl [place] [facility] - [facility] l [facility] Clinics Gabapentin Gabapentin Yes Burke [address] [place] kes - [facility] l [facility] ent Clinics Procedures This patient has no known procedures. Encounters Start End Encounter Admission Attending Care Care Encounter Source Date/Time Date/Time Type Type Clinicians Facility Department ID 2020-02-04 2020-02-04 FERNANDO Best [id number] 00:00:00 00:00:00 Management Serge SAXENA [id number] [facility] [id number] 2020-01-29 2020-01-29 Office GELY Browning [id number] 16:10:52 16:47:06 Visit Man MCWILLIAMS [id number] [facility] [id number] 2019-06-11 2019-06-11 Outpatient Krystian Bolandt [id number] 15:15:00 15:15:00 t Specialty/U Vicki kes - Specialty rology Memori a /Urology Clinic l [facility] 2019-05-28 2019-05-28 Outpatient [place]rystian [place] [id number] [facility] 10:11:00 10:11:00 t Specialty/U Vicki kes - Specialty rology Memori a /Urology Clinic l [facility] 2019-02-26 2019-02-26 Outpatient [place]rystian [place] [id number] [facility] 14:00:00 14:00:00 t Specialty/U Vicki kes - Specialty rology Memori a /Urology Clinic l [facility] 2019-02-13 2019-02-13 Outpatient Krystian Sanchez [id number] 09:53:00 09:53:00 t Specialty/U Vicki kes - Specialty rology [facility] a /Urology Clinic l [facility] 2019-01-15 2019-01-15 Outpatient Krystian Sanchez [id number] 13:00:00 13:00:00 t Specialty/U Vicki maxwells - Specialty rology [facility] a /Urology Clinic l [facility] Results This patient has no known results.
--- OUTSIDE RECORDS SUMMARY | 2020-02-27 09:03 | XMS REPORT | Summary of Care ---
:[address] 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 [place] [address] [place] [address] [phone] Allergies No Known Allergiesdocumented as of this encounter (statuses as of 01/29/2020) Medications Medication Sig Dispensed Refills Start Date End Date Status furosemide 80 mg tablet TAKE 1 TABLET BY 3 9 Active MOUTH ONCE DAILY losartan 100 mg tablet TAKE 1 TABLET BY 3 12/30/2018 Active MOUTH ONCE DAILY metoprolol tartrate 25 Take 25 mg by 1 12/30/2018 Active mg tablet mouth 2 (two) times daily. tamsulosin 0.4 mg 24 hr TAKE 1 CAPSULE BY 3 12/31/19 19 Active capsule MOUTH AT BEDTIME abiraterone 250 mg Take by mouth 0 01/24/2019 Active tablet predniSONE 5 mg tablet 0 01/24/2019 Active chlorhexidine 0.12 % Swish and spit 473 mL 0 02/11/2019 Active mouthwashIndications: out 15 mL 2 (two) Intravenous times daily. bisphosphonate-associat ed osteonecrosis of the jaw chlorhexidine 0.12 % Swish and spit 473 mL 5 02/11/2019 Active mouthwashIndications: out 15 mL 2 (two) Intravenous times daily. bisphosphonate-associat ed osteonecrosis of the jaw chlorhexidine 0.12 % Swish and spit 473 mL 5 02/28/2019 Active mouthwashIndications: out 15 mL 2 (two) Intravenous times daily. bisphosphonate-associat ed osteonecrosis of the jaw chlorhexidine 0.12 % Swish and spit 473 mL 4 04/15/2019 Active mouthwashIndications: out 15 mL 2 (two) Bisphosphonate-related times daily. jaw necrosis doxycycline hyclate 100 Take 1 tablet by 30 tablet 5 0 Active mg tabletIndications: mouth daily. Bisphosphonate-related jaw necrosis doxycycline 100 mg EC Take 1 tablet by 30 tablet 6 01/29/2020 Active tabletIndications: mouth daily. 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 02/28/2019 documented as of this encounter (statuses as of 01/29/2020) Social History Tobacco Use Types Packs/Day Years Used Date Never Assessed Sex Assigned at Date Recorded Not on file documented as of this encounter Last Filed Vital Signs Vital Sign Reading Time Taken Comments Blood Pressure 149/84 01/29/2020 4:32 PM CDT Pulse 106 01/29/2020 4:32 PM CDT Temperature 36.2 C (97.1 F) 01/29/2020 4:32 PM CDT Respiratory Rate - - Oxygen Saturation - - Inhaled Oxygen Concentration - - Weight - - Height - - Body Mass Index - - documented in this encounter Progress Notes Annel Healy - 01/29/2020 4:00 PM CDTPanorex taken today by TAVO/TEO. Full x-ray gown in place. Serge Romero DMD - 01/29/2020 4:00 PM CDT OMFS H&P Chief Complaint: MRONJ follow-up HPI Mk Paredes is a 78 year old male with a PMH as listed who returns to clinic for 6 month follow up for medication related osteonecrosis of the jaw. Patient presents with son, who was able to help provide information on behalf of patient. Patient has been compliant with Doxycycline treatment. He does not like using Peridex. No subjective complaints today. Denies pain. Currently denies any intraoral/extraoral swelling, odynophagia, dysphagia or dyspnea. Previous HPI Mk Paredes is a 78 year old male referred by Dr. Bradley of [place], [place] for osteonecrosis of mandible and maxilla. He presents today for follow-up. He reports improvement of his symptoms sincebeginning Doxycyline and Peridex in January 2019. Patient with a history of metastatic prostate cancer diagnosed in 2013 and was started on monthly IVinjections of Zometa. Patient reports having full mouth extraction in [address] Jonny Jimenez of [place]. Patient states he feels that there are some 'holes' in his jaw. Patient was seen with Dr. Bradley who provided Amoxicillin and OMFS referral. Patient states he has not returned to [facility] for follow up or evaluation of non-healing sites. Histories Past Medical History: Diagnosis Date BPH (benign prostatic hyperplasia) HTN (hypertension) [place] (myocardial infarction) Prostate cancer Past Surgical History: Procedure Laterality Date STENT PLACEMENT (SHX) History reviewed. No pertinent family history. Social History Socioeconomic History Marital status: Single Spouse name: Not on file Number of children: Not on file Years of education: Not on file Highest education level: Not on file Occupational History Not on file Social Needs Financial resource strain: Not on file Food insecurity Worry: Not on file Inability: Not on file Transportation needs Medical: Not on file Non-medical: Not on file Tobacco Use Smoking status: Not on file Substance and Sexual Activity Alcohol use: Not on file Drug use: Not on file Sexual activity: Not on file Lifestyle Physical activity Days per week: Not on file Minutes per session: Not on file Stress: Not on file Relationships Social connections Talks on phone: Not on file Gets together: Not on file Attends mosque service: Not on file Active member of club or organization: Not on file Attends meetings of clubs or organizations: Not on file Relationship status: Not on file Intimate partner violence Fear of current or ex partner: Not on file Emotionally abused: Not on file Physically abused: Not on file Forced sexual activity: Not on file Other Topics Concern Not on file Social History Narrative Not on file Review of Systems Constitutional: negative Skin: negative Eyes: wears glasses Ears, nose, mouth, throat: (+) per HPI Cardio: (-) chest pain, (-) palpitations, (-) syncope; h/o [place] and stenting - plavix d/c'ed in 2018 Resp: (+) dyspnea on exertion, (+) orthopnea GI: negative : not asked GUSTABO: not asked Neuro: negative Psych: negative Endo: negative Hem/Lymphatic: negative Allergic/Immunologic: NKA, history of IV bisphosphonate usage with concomitant glucocorticoid usage Physical Exam There were no vitals taken for this visit. General Appearance: NAD, appears stated age Skin: No rashes, pain, abscess, masses Head/Neck/TMJ: No lymphadenopathy, Maximum openin mm Eyes: PERRL, EOM intact, ptosis Ears: No otorrhea Nose: No discharge, epistaxis, rhinorrhea Throat: Normal mucosa, uvula midline and mobile, normal gag reflex Oral Mucosa: (+) Slight open wound around edentulous site at #6 but no evidence of purulence. Erythema surrounding retained root tips in left mandible with continued evidence of granulation tissue formation since last visit. Lingual mandibular ST healed with no signs of dehiscence. Bony spicule aroundRT #22. Teeth: retained roots of left mandibular bicuspids otherwise edentulous Tongue/FOM: No swellings, ulcerations, non-tender to palpation, gag reflex present Lungs: Symmetric chest rise, non-labored breathing Heart: Regular rate and rhythm Abdomen: ND Musculoskeletal: moves all four extremities purposefully Neurological: Alert and oriented x3, CN II-XII grossly intact Laboratory No new labs Radiology Panorex taken in clinic today demonstrates evidence of a static disease process. No changes since last office visit. 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 Jonny Jimenez in 2016 - No progression in disease process since last visit. - Improved healing in the mandible - Slow healing in the maxilla - No signs of I/O or E/O dehiscence or purulence Plan - Patient elects to continue with conservative medical management at this time; he is not actively draining purulence and can tolerate his symptoms - Continue mouth rinse TID; Doxycycline 100 mg QDaily - Follow up for re-evaluation in 6 months documented in this encounter Plan of Treatment Date Type Specialty Care Team Description 07/30/2020 Office Visit Oral & Maxillofacial Surgery Ashley Browning, DDS [address] [place] [address] Health Maintenance Due Date Last Done Comments Depression Screening 1952 DTaP,Tdap,and Td Vaccines (1 - Tdap) 10/08/1958 Zoster Recombinant Vaccine (SHINGRIX) (1 of 2) 10/08/1989 Medicare Wellness Visit 10/08/2004 PNEUMOCOCCAL VACCINES 65+ (1 of 1 - PPSV23) 10/08/2004 INFLUENZA VACCINE (#1) 2020 documented as of this encounter Results Not on filedocumented in this encounter Visit Diagnoses Diagnosis Bisphosphonate-related jaw necrosis - Pr imary Inflammatory conditions of jaw 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
--- OUTSIDE RECORDS SUMMARY | 2020-02-27 09:04 | XMS REPORT | Summary of Care ---
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 [place] [address] [phone] Allergies No Known Allergiesdocumented as of this [...] old male referred by Dr. Bradley of [place], [place] for osteonecrosis of mandible and maxilla. He presents today for follow-up. He reports improvement of his symptoms sincebeginning Doxycyline and Peridex in January 2019. Patient with a history of metastatic prostate cancer diagnosed in 2013 and was started on monthly IVinjections of Zometa. Patient reports having full mouth extraction in [address] Jonny Jimenez of [place]. Patient states he feels that there are some 'holes' in his jaw. Patient was seen with Dr. Bradley who provided Amoxicillin and OMFS referral. Patient states he has not returned to [facility] for follow up or evaluation of non-healing sites. Histories Past Medical History: Diagnosis Date BPH (benign prostatic hyperplasia) HTN (hypertension) [place] (myocardial infarction) Prostate cancer Past Surgical History: [...] file Gets together: Not on file Attends latter day service: Not on file Active member of [...] chest pain, (-) palpitations, (-) syncope; h/o [place] and stenting - plavix d/c'ed in 2018 [...] Date BPH (benign prostatic hyperplasia) HTN (hypertension) [place] (myocardial infarction) Prostate cancer Mk Paredes is [...] Browning, DDS [address] [place] [address] Health Maintenance Due Date Last Done [...]
--- OUTSIDE RECORDS SUMMARY | 2020-02-27 09:04 | XMS REPORT | Summary of Care ---
:1940 Author Organization [facility] Address [address] [place] [address] Care Team Providers Name Role Phone Kendall Branham Primary Care Provider Reason for Visit Reason Comments Referral/consult Encounter Details Date Type Department Care Team Description 02/04/2020 Case Management [facility] Serge Galaviz, Referr al/consult [facility] [address] [place] [address] [place] [address] [place], [place] [phone] [address] [phone] Allergies No Known Allergiesdocumented as of this encounter (statuses as of 02/04/2020) Medications Medication Sig Dispensed Refills Start Date [...] Active tabletIndications: mouth daily. Bisphosphonate-related jaw necrosis doxycycline hyclate 80 Take 80 mg by 30 tablet 6 02/04/2020 Active mg TbECIndications: mouth daily. 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 Changed order to Doxy Hyclate. documented in this encounter Plan of Treatment Date Type Specialty Care Team Description 07/30/2020 Office Visit Oral & Maxillofacial Surgery Ashley Browning, DDS [address] [place], [place] [address] [phone] Health Maintenance Due Date Last Done Comments Depression Screening 1952 DTaP,Tdap,and Td Vaccines (1 - Tdap) 10/08/1958 Zoster Recombinant Vaccine (SHINGRIX) (1 of 2) 10/08/1989 Medicare Wellness Visit 10/08/2004 PNEUMOCOCCAL VACCINES 65+ (1 of 1 - PPSV23) 10/08/2004 INFLUENZA VACCINE (#1) 2020 documented as of this encounter Results Not on filedocumented in this encounter Visit Diagnoses Diagnosis 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
--- OUTSIDE RECORDS SUMMARY | 2020-02-27 09:04 | XMS REPORT | Summary of Care ---
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 [place] [address] [phone] Allergies No Known Allergiesdocumented as of this [...] old male referred by Dr. Bradley of [place], [place] for osteonecrosis of mandible and maxilla. He presents today for follow-up. He reports improvement of his symptoms sincebeginning Doxycyline and Peridex in January 2019. Patient with a history of metastatic prostate cancer diagnosed in 2013 and was started on monthly IVinjections of Zometa. Patient reports having full mouth extraction in [address] Jonny Jimenez of [place]. Patient states he feels that there are some 'holes' in his jaw. Patient was seen with Dr. Bradley who provided Amoxicillin and OMFS referral. Patient states he has not returned to [facility] for follow up or evaluation of non-healing sites. Histories Past Medical History: Diagnosis Date BPH (benign prostatic hyperplasia) HTN (hypertension) [place] (myocardial infarction) Prostate cancer Past Surgical History: [...] file Gets together: Not on file Attends congregation service: Not on file Active member of [...] chest pain, (-) palpitations, (-) syncope; h/o [place] and stenting - plavix d/c'ed in 2018 [...] Date BPH (benign prostatic hyperplasia) HTN (hypertension) [place] (myocardial infarction) Prostate cancer Mk Paredes is [...] Browning, DDS [address] [place] [address] Health Maintenance Due Date Last Done [...]
[2020-02-27] MEDS: LOSARTAN POTASSIUM 50 MG TABLET PO SCH (09:45)
[2020-02-27] MEDS: ABIRATERONE 250 MG PO SCH ×2 (09:45→20:09)
[2020-02-27] MEDS: predniSONE 5 MG TAB PO SCH ×2 (09:45→20:09)
[2020-02-27] MEDS: MEMANTINE HCL 10 MG TABLET PO SCH (09:45)
[2020-02-27] MEDS: TAMSULOSIN 0.4 MG SR CAP PO SCH (20:09)
[2020-02-27] MEDS: HYDROCODONE/APAP 5/325 MG TAB PO PRN (23:37)
--- NOTE | 2020-02-27 23:46 | HP ---
Date of Admission: 02/24/2020 History Of Present Illness: According to the family, the patient had been lying on the floor for yuliana roximately 6 hours. The patient is a poor historian and has had some altered mental status as of e. When he felt better, he stated that he had fallen and had difficulty getting up. His legs would n ot bear weight and he thought he had been on the floor for a number of hours. There was no involunta ry or encopresis that he noted. The patient has not had similar episodes and he was broug ht to the emergency room. He still had difficulty walking; significant weakness, especially on his r ight and left leg. 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 However, considering time factor, he has done quite well with this with combination of chemo and radiation, and is presently on abiraterone f or this. [facility]. The latter has resulted in osteonecrosis of the jaw. He has had multiple issues with this, which has also been treated. The patient also has bray d history of hypertension, progressive dementia, which he has been seen by the neurologist who put hi m on Namenda, increased in the past few months from 5 to 10 with some improvement again according to the family. Medications: He is currently on prednisone, losartan, Flomax, and Lasix. Social History: Nonsmoker and nondrinker. Family History: Noncontributory. Physical Examination: General: The patient is a slightly disoriented elderly male with stable vital signs. Head and Neck: Normocephalic. Pupils equal and reactive to light and accommodation. Fundi negative. Trachea midline. Thyroid not palpable. ENT: Negative. Chest: Clear to P and A. Cardiovascular: PMI in midclavicular line. Heart: Sounds normal. Peripheral pulses present and equal bilaterally. Abdomen: No organomegaly. Bowel sounds normal. Extremities: Slightly decrease in slow motion in the lower extremities. Rectal: Deferred. Impression: Syncope and/or near-syncope, rhabdomyolysis, altered mental status, hypertension control led, coronary artery disease controlled, prostate cancer with bony metastasis by history. Plan: The patient will be admitted, placed on IV fluids. Monitor his blood work and obtain __ therapy to enable him to walk. HR/MODL Voice ID: [id number]
--- NOTE | 2020-02-28 02:53 | PN ---
Date of Progress Note: 02/27/2020 Subjective: The patient seems considerably better physically today. He is sitting up in the chair a nd mobilized better; however, he takes assistance to do this. Physical therapy felt not comfortable with him going home as he lives alone. His dementia was variable when seen today, somewhat confused, but orientated. His blood work is much better. His appetite has improved. He definitely will requ leanna some increased therapy. With time, this should we think rapidly improved to baseline. Ideally, he would be admitted to rehab floor, if not, a SNF would have to be considered. IVs have been discon tinued. Still urinating a regular amount and as mentioned physically seems other than the walking, w eightbearing, and transferring process better than when he came in. He now does state that he rememb ers involving him and could not get any of his usual methods of contacting people, and therefore, sta yed on the floor until the family member checks on him came into the house. Discussion of dispositio n with him at this stage was not productive as he could not grasp the difference between the 2 situat ions depending on his acceptance; therefore, we will discuss it again with him in the morning and wit h the family. HR/MODL Voice ID: [id number] Report ID: [id number]
[2020-02-28] MEDS: HYDROCODONE/APAP 5/325 MG TAB PO PRN (03:12)
[2020-02-28] MEDS: LOSARTAN POTASSIUM 50 MG TABLET PO SCH (08:33)
[2020-02-28] MEDS: ABIRATERONE 250 MG PO SCH ×2 (08:33→21:40)
[2020-02-28] MEDS: predniSONE 5 MG TAB PO SCH ×2 (08:34→21:39)
[2020-02-28] MEDS: MEMANTINE HCL 10 MG TABLET PO SCH (08:34)
--- NOTE | 2020-02-28 14:24 | PN ---
Date of Progress Note: 02/28/2020 Basically, his mental status is stable, comes and goes as for his confusion and orientation, however, he is somewhat better than when I talked to him yesterday. As far as insurance situation is concern ed for rehab, this has not been confirmed. Discussion was made with the family as far as a SNF unit. The patient had been in SNF unit in the past. There was some issue with medical power of service planner, and this was discussed also with the family and I think it has been straightened out. In any event obviously keeping over the weekend and he is not stable enough to be discharged on his own at home an d if in fact quite Monday no determination is made for his rehab and basically requires help with tra nsferring him mobilizing, would transfer him to a SNF unit. He is capable of handling things at home and perhaps he could be discharged. HR/MODL Voice ID: [id number] Report ID: [id number]
[2020-02-28] MEDS: BISACODYL E.C. 5 MG TAB PO PRN (21:39)
[2020-02-29] MEDS: HYDROCODONE/APAP 5/325 MG TAB PO PRN ×2 (00:38→20:13)
[2020-02-29] MEDS: MEMANTINE HCL 10 MG TABLET PO SCH (08:48)
[2020-02-29] MEDS: LOSARTAN POTASSIUM 50 MG TABLET PO SCH (08:48)
[2020-02-29] MEDS: ABIRATERONE 250 MG PO SCH ×2 (08:48→20:13)
[2020-02-29] MEDS: TAMSULOSIN 0.4 MG SR CAP PO SCH (08:48)
[2020-02-29] MEDS: BISACODYL E.C. 5 MG TAB PO PRN (13:13)
[2020-02-29] MEDS: predniSONE 5 MG TAB PO SCH ×2 (13:13→20:12)
--- NOTE | 2020-02-29 15:30 | P.PN ---
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 He has declined quite significantly. Patient has dementia and he apparently was admitted to the hospital with altered mentation. He was found on the floor and he had been laying there for over 6 hr. He was not able the remember what at happened to him. Patient was confused and not really making a lot of sense so he was admitted for facility for evaluation. The etiology of his altered mentation was really not identified. The could have toxic encephalopathy from the skin infection. It was felt that he may have progressive dementia as well. He has prostate cancer with mets to the bone. He may have brain metastasis as well. We may need to get MRI of the brain for further evaluation. Review of Systems 10-point ROS is otherwise unremarkable Physical Examination - Vital Signs Temperature: 97.0 F Blood Pressure: 130/74 Pulse: 77 Respirations: 17 Pulse Ox (%): 98 - Physical Exam General: Alert, In no apparent distress, Oriented x2, Demented (Early), Confused Respiratory: Clear to auscultation bilaterally, Normal air movement Cardiovascular: Regular rate/rhythm, Normal S1 S2, No murmurs Gastrointestinal: Normal bowel sounds, Soft and benign, Non-distended, No tenderness Musculoskeletal: No clubbing, No swelling, No tenderness Integumentary: Tenderness/swelling, Erythema, Warmth, Other (On the left leg) Neurological: Abnormal strength, Abnormal cranial nerve function, Abnormal affect, Dementia - Studies Medications List Reviewed: Yes Assessment & Plan - Problems (Diagnosis) (1) AMS (altered mental status) Current Visit: Yes Status: Acute (2) Paresthesia Current Visit: No Status: Active (3) History of metastatic neoplastic disease Current Visit: No Status: Chronic (4) History of prostate cancer Current Visit: No Status: Chronic (5) Rhabdomyolysis Current Visit: Yes Status: Acute (6) Cellulitis of leg, left Current Visit: Yes Status: Acute - Plan 1. Continue with IV antibiotic 2. Dressing changes per nursing staff; antibiotic ointment as needed 3. MRI of the brain to evaluate altered mental status 4. Hep-Lock IV 5. Monitor labs 6. Strict blood sugar monitoring 7. Pain control 8. GI and DVT prophylaxis Discharge Plan: Other (Rehabilitation or halfway facility placement) Plan to discharge in: Greater than 2 days - Advance Directives Does patient have a Living Will: Yes Does patient have a Durable POA for Healthcare: No - Code Status/Comfort Care Code Status Assessed: Yes Code Status: Full Code Critical Care: No Time Spent Managing PTS Care (In Minutes): 35
[2020-02-29 16:53] LABS: Absolute Lymphocytes (CBC) 1.3 K/uL (0.7-4.9); Basophils % 1.1 % (0-1.3); Hematocrit 35.3 % (39.6-49.0); Lymphocytes % 17.4 % (15.3-44.8); MPV 7.5 fL (7.6-11.3)
[2020-02-29 17:02] LABS: Protime INR 0.91
[2020-02-29 17:10] LABS: Albumin 2.8 g/dL (3.4-5.0); Bilirubin Total 0.3 mg/dL (0.2-1.0); Magnesium 2.2 mg/dL (1.8-2.4); Phosphorus 3.1 mg/dL (2.5-4.9); Potassium 3.6 mmol/L (3.5-5.1); Protein, Total 5.9 g/dL (6.4-8.2)
[2020-02-29] MEDS ORDERED: ABIRATERONE ACETATE PO SCH (21:00)
[2020-03-01] MEDS: HYDROCODONE/APAP 5/325 MG TAB PO PRN ×2 (01:05→18:13)
[2020-03-01] MEDS: TAMSULOSIN 0.4 MG SR CAP PO SCH (08:03)
[2020-03-01] MEDS: LOSARTAN POTASSIUM 50 MG TABLET PO SCH (08:03)
[2020-03-01] MEDS: ABIRATERONE 250 MG PO SCH ×2 (08:04→21:29)
[2020-03-01] MEDS: MEMANTINE HCL 10 MG TABLET PO SCH (08:04)
[2020-03-01] MEDS: predniSONE 5 MG TAB PO SCH ×2 (08:04→21:29)
[2020-03-01] MEDS ORDERED: HOME MED 1 EA UNK (Losartan Potassium [Cozaar] 1 TAB) PO SCH (09:00)
--- NOTE | 2020-03-01 13:50 | P.PN ---
Subjective Date of Service: 03/01/20 Patient is doing well. Eating lunch. He is still very forgetful. He does remember some of the things he told me yesterday and continues to repeat these things. Overall he would benefit from jail facility placement. She lives at home alone and out on think he is safe to go back home by himself. He has been falling quite frequently. It would be too dangerous for him to go home without help around the clock. He has weakness of the lower extremity any looks like as a limit of atrophy of the lower limbs. He will need physical therapy to strengthen himself up. Will also check for additional conditions like polymyalgia. MRI of the brain pending as well to rule out prostate metastasis t o the brain. Review of Systems 10-point ROS is otherwise unremarkable Physical Examination - Vital Signs Temperature: 97.0 F Blood Pressure: 130/74 Pulse: 77 Respirations: 17 Pulse Ox (%): 98 - Physical Exam General: Alert, Oriented x2, Demented, Confused, Other (Patient is quite forgetful at times as well) Respiratory: Clear to auscultation bilaterally, Normal air movement Cardiovascular: Regular rate/rhythm, Normal S1 S2, Systolic murmur Gastrointestinal: Normal bowel sounds, Soft and benign, Non-distended Musculoskeletal: No clubbing, No swelling, No tenderness Integumentary: Erythema Neurological: Cranial nerves 3-12 intact, Abnormal gait, Abnormal strength - Studies Microbiology Data (last 24 hrs): 02/24/20 22:52 Blood - Blood Aerobic Blood Culture - Final No growth in 5 days. 02/24/20 22:52 Blood - Blood Anaerobic Blood Culture - Final No growth in 5 days. Medications List Reviewed: Yes Assessment & Plan - Problems (Diagnosis) (1) AMS (altered mental status) Current Visit: Yes Status: Acute (2) Paresthesia Current Visit: No Status: Active (3) History of metastatic neoplastic disease Current Visit: No Status: Chronic (4) History of prostate cancer Current Visit: No Status: Chronic (5) Rhabdomyolysis Current Visit: Yes Status: Acute (6) Cellulitis of leg, left Current Visit: Yes Status: Acute (7) Muscle weakness Current Visit: Yes Status: Acute - Plan Continue with plan of care at this time 1. Continue with IV antibiotic 2. Dressing changes per nursing staff; antibiotic ointment as needed 3. MRI of the brain to evaluate altered mental status 4. Hep-Lock IV 5. Monitor labs-check thyroid studies and cortisol level 6. Strict blood sugar monitoring 7. Pain control 8. GI and DVT prophylaxis Discharge Plan: Longterm Plan to discharge in: 48 Hours - Advance Directives Does patient have a Living Will: Yes Does patient have a Durable POA for Healthcare: No - Code Status/Comfort Care Code Status: Full Code Critical Care: No Time Spent Managing PTS Care (In Minutes): 35
[2020-03-01] MEDS: BISACODYL E.C. 5 MG TAB PO PRN (21:29)
[2020-03-02 01:35] VITALS: O2SAT 97
[2020-03-02 06:25] LABS: Absolute Lymphocytes (CBC) 1.3 K/uL (0.7-4.9); Hematocrit 35.9 % (39.6-49.0); MPV 7.5 fL (7.6-11.3); RBC Red Blood Cell Count 3.66 M/uL (4.33-5.43)
[2020-03-02 06:27] LABS: Protime INR 0.92
[2020-03-02 08:03] LABS: Folic Acid, (Folate) 17.7 ng/mL (3.1-17.5); Magnesium 2.3 mg/dL (1.8-2.4); Phosphorus 3.1 mg/dL (2.5-4.9); Thyroid Stimulating Hormone 2.79 uIU/mL (0.360-3.740)
[2020-03-02] MEDS: TAMSULOSIN 0.4 MG SR CAP PO SCH (09:01)
[2020-03-02] MEDS: MEMANTINE HCL 10 MG TABLET PO SCH (09:01)
[2020-03-02] MEDS: predniSONE 5 MG TAB PO SCH (09:01)
[2020-03-02] MEDS: LOSARTAN POTASSIUM 50 MG TABLET PO SCH (09:01)
[2020-03-02] MEDS: BISACODYL E.C. 5 MG TAB PO PRN (09:15)
[2020-03-02] MEDS: ABIRATERONE 250 MG PO SCH (09:15)
[2020-03-02] MEDS ORDERED: CEPHALEXIN 500 MG CAP PO SCH (11:00)
[2020-03-02 12:01] VITALS: BP 140/83; TEMP 97.3
[2020-03-02] MEDS ORDERED: JUVEN PACKET PO SCH (21:00)
== END 2020-03-02 15:02 ==
LOC: ER 19:28 → ERHOLD 23:06 → 2ND 23:41
PROVIDERS: ADMIT Family Medicine; ATTEND Family Medicine
DX: R41.82 Altered mental status, unspecified (principal); R20.2 Paresthesia of skin; Z85.46 Personal history of malignant neoplasm of prostate; L03.116 Cellulitis of left lower limb; R29.898 Other symptoms and signs involving the musculoskeletal system; M62.82 Rhabdomyolysis; R94.31 Abnormal electrocardiogram [ECG] [EKG]; R00.0 Tachycardia, unspecified; Z20.828 Contact with and (suspected) exposure to other viral communicable diseases; C79.51 Secondary malignant neoplasm of bone; I10 Essential (primary) hypertension; Z92.21 Personal history of antineoplastic chemotherapy; Z92.3 Personal history of irradiation; F03.90 Unspecified dementia, unspecified severity, without behavioral disturbance, psychotic disturbance, mood disturbance, and anxiety; I25.10 Atherosclerotic heart disease of native coronary artery without angina pectoris; Z79.52 Long term (current) use of systemic steroids
CPT/HCPCS: 36415; 70450; 72125; 72170; 80048; 80053; 81003; 81015; 82533; 82550; 82607; 82746; 83540; 83605; 83735; 84100; 84145; 84153; 84439; 84443; 84484; 85025; 85610; 85652; 87040; 93005; 96365; 96375; 97116; 97161; 97530; 99285; G0378; J0696; J7030; J7050; J7512; U0002

== ENCOUNTER 2020-03-02 08:28 | Inpatient (IN) | payer MEDICARE ==
--- NOTE | 2020-03-02 10:11 | R.PREADM ---
PRE-ADMISSION SCREENING FORM SCREENING DATE AND TIME 03/02/2020 08:36 (CDT) ANTICIPATED REHAB ADMISSION DATE 03/04/2020 REFERRING FACILITY [facility] REFERRAL DATE AND TIME 03/02/2020 08:36 (CDT) REFERRAL ROOM# 224 ACUTE ADMIT DATE 03/02/2020 Previous Rehabilitation(s): No. ACUTE TICKER WIRER/DC NEONATAL ICU COORDINATOR Darline ATTENDING PHYSICIAN REFERRING PHYSICIAN DR CHAUDHRY REHAB FACILITY [facility] CLINICAL LIAISON Rosa M Nguyen PHYSICIAN REVIEWER Dr. Benedict Alvarez M.D. MR# [id number] NAME JACINDA ESQUEDA ADDRESS [address] [facility] PHONE [facility] [address] DATE OF 1940 AGE 79 SSN# [id number] GENDER male MARITAL STATUS RACE unknown race ADMIT FROM 02 - [facility] PRE-HOSPITAL LIVING SETTING 01 - Home (private home/apt. board/care, assisted living, prison, transitional living) HOME TYPE AND DETAILS Type of home: single family house # of levels in the residence: 2 # of steps within the residence: 1 # of steps to enter the residence: 1 PRE-HOSPITAL LIVING WITH Alone FAMILY SUPPORT No PRIMARY FAMILY CONTACT NAME FERNANDO ESQUEDA PRIMARY FAMILY CONTACT PHONE PHONE PRIMARY FAMILY CONTACT ON ADM.? no IS PRIMARY FAMILY CONTACT AUTH. REP.? no 1ST EMERGENCY CONTACT FERNANDO ESQUEDA 1ST CONTACT PHONE PHONE 1ST CONTACT ON ADM. no IS 1ST CONTACT AUTH. REP.? no PHONE 2ND CONTACT ON ADM.? no PATIENT EMPLOYMENT STATUS Retired (for age) PATIENT EMPLOYER No Employer PAYOR INFORMATION: 1ST PAYOR NAME AARP MEDICARE COMPLETE 1ST PAYOR PHONE [phone] 1ST PAYOR INJURY/ILLNESS DUE TO ACCIDENT? No ANOTHER LIBERTARIAN RESPONSIBLE? 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 SUMMARY OF ACUTE HOSPITALIZATION: Pt. is a 79 yo Right-handed male of unknown race. On 02/24/2020 he was admitted to [facility] with diagnosis HX OF PROSTATE CANCER W BONY METASTASIS IN THE LUMBOSACRAL. His impairment category is Medically Complex Conditions 17 - Neoplasms (17.2). Pre-morbidly, Pt. was independent/mod-I in Locomotion, Safety Awareness, Social Cognition, Transfers Control, and Communication; and he had good Sphincter Control, Self-Care, and Endurance. Currently, he has deficits of Locomotion, Safety Awareness, Social Cognition, Sphincter Control, Comm unication, and Endurance. Pt. is now referred to [facility] for acute in-patient rehabilitation in order to maximize patient's functional independence in activities of daily living, strength, ROM, and mobi lity. Patient has realistic goal of being discharged at assistance level 7-Ind to reside at Home with Pt s elf. PAST MEDICAL HISTORY PROSTATE CANCER W METS HTN DEMENTIA HEART STENTS METASTATIC DISEASE MULT. 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 HISTORY MEDICATION ALLERGIES: No Known Drug Allergies (NKDA) ENVIRONMENTAL ALLERGIES: - Substance Allergies None Known - Other Allergies None Known CODE STATUS: Full code WEIGHT/HEIGHT/BMI: WEIGHT 190 lbs HEIGHT 5' 8" BMI 28.9 DIET: - Diet Type Regular - Diet - Solid Texture Regular - Diet - Liquid Texture Regular - Tube Feed N/A REVIEW OF SYSTEMS: - Gen Alert and awake Lying in bed No apparent distress Oriented to: person, time, and place - Vital Signs Temperature: 97.0 F SBP/DBP: 156/71 Pulse: 76 Resp: 18 Vital signs stable, afebrile - CVS RRR VITAL SIGNS Temperature: 97.0 F SBP/DBP: 156/71 Pulse: 76 Resp: 18 Vital signs stable, afebrile MEDICATIONS/TREATMENT: Other- See attached MAR (Medication Administration Record). CURRENT SPHINCTER CONTROL: Pre-hospital bladder status: unspecified # of bladder accidents in the last 7 days prior to screenin Pre-hospital bowel status: unspecified # of bowel accidents in the last 7 days prior to screenin Last Bowel Movement Date: 03/02/2020 CURRENT LOCOMOTION STATUS: distance walked 250 feet WITH RW DETAILED CURRENT FUNCTIONAL STATUS: - Bladder accident frequency: Ind - No accidents in the past 7 days - Bowel accident frequency: Ind - No accidents in the past 7 days - Walking score based on distance walked: 0(N/A) score based on distance walked: 3(>=150ft) - Wheelchair score based on distance traveled: 0(N/A) QI SCORES: - Self-Care A. Eating 03-Partial/moderate assistance B. Oral hygiene 03-Partial/moderate assistance C. Toileting hygiene 02-Substantial/maximal assistance E. Shower/bathe self 02-Substantial/maximal assistance F. Upper body dressing 03-Partial/moderate assistance G. Lower body dressing 03-Partial/moderate assistance H. Putting on/taking off footwear 88-Not attempted due to medical condition or safety concerns - Mobility A. Roll left and right 03-Partial/moderate assistance B. Sit to lying 03-Partial/moderate assistance C. Lying to sitting on side of bed 03-Partial/moderate assistance D. Sit to stand 04-Supervision or touching assistance E. Chair/nww-ky-wucyc transfer 04-Supervision or touching assistance F. Toilet transfer 02-Substantial/maximal assistance G. Car transfer 88-Not attempted due to medical condition or safety concerns I. Walk 10 feet 04-Supervision or touching assistance J. Walk 50 feet with two turns 04-Supervision or touching assistance K. Walk 150 feet 04-Supervision or touching assistance L. Walking 10 feet on uneven surfaces 88-Not attempted due to medical condition or safety concerns M. 1 step (curb) 88-Not attempted due to medical condition or safety concerns N. 4 steps 88-Not attempted due to medical condition or safety concerns O. 12 steps 88-Not attempted due to medical condition or safety concerns P. Picking up object 88-Not attempted due to medical condition or safety concerns R. Wheel 50 feet with two turns 88-Not attempted due to medical condition or safety concerns S. Wheel 150 feet 03-Partial/moderate assistance - Bladder and Bowel Bladder continence Bowel continence - Endurance Fair - Balance Fair - Safety Awareness Fair CURRENT FUNC. DEFICITS: Self-Care, Mobility, Endurance, Balance, and Safety Awareness CURRENT / PREVIOUS ASSISTIVE DEVICES: Rolling Walker HISTORY OF FALLS. HAS THE PATIENT HAD TWO OR MORE FALLS IN THE PAST YEAR OR ANY FALL WITH INJURY IN T HE PAST YEAR?: Yes PRIOR SURGERY. DID THE PATIENT HAVE MAJOR SURGERY DURING THE 100 DAYS PRIOR TO ADMISSION?: No THERAPY NOTES FROM ACUTE CARE: Attached. SPECIAL NEEDS: - Safety Concerns Skin breakdown precautions needed due to skin breakdown risk PATIENT NEEDS ACTIVE AND ONGOING THERAPEUTIC INTERVENTION OF MULTIPLE THERAPY DISCIPLINES, INCLUDING: - Dietary and Nutrition Adequate Nutrition. Nutritional Education. Nutritional Supplements. PATIENT NEEDS CLOSE MEDICAL SUPERVISION BY A REHABILITATION PHYSICIAN FOR: Coordination of Treatment Team PATIENT REQUIRES 24X7 REHAB NURSING FOR MEDICAL AND FUNCTIONAL MGT. OF THE FOLLOWING DEFICITS: Disease Management Medication Management Patient/Family Education Providing Safe Environment PATIENT REQUIRES INTENSIVE, COORDINATED INTERDISCIPLINARY APPROACH TO REHAB: Arranging Home Equipment/Services Discharge Planning Family Intervention/Training Jd Edwards Developer/Case Management PATIENT REHAB POTENTIAL: Stephan ESQUEDA is able and expected to receive 3 hours of individualized therapy daily on at least 5 of every 7 days Stephan ESQUEDA's prognosis for significant practical improvement within a reasonable period of time appe ars Good Expected level of measurable improvement will be of a practical value to Stephan ESQUEDA's functional cap acity or adaptations to impairments Has a viable Discharge Plan Medically appropriate; condition is sufficiently stable to participate in intensive rehab program DISCHARGE PLAN: - Estimated Length of Stay (days) 13. - Consensus on plan Discharge plan has been discussed with primary caregiver. Patient/Family is in agreement with the luanne n. Primary caregiver is in agreement with the plan. - Patient/Family Goals Return home independently. - Planned Living Setting Upon Discharge Home, to live alone. Transitional Living. Primary caregiver: Pt self. RECOMMENDED CARE LEVEL: IRF RECOMMENDATION DETAILS: Recommended Admission to Comprehensive Rehabilitation Program to Increase Functional [place] SCREENER'S COMPLETENESS CONFIRMATION: - Screening Confirmation The patient data collection on this preadmission screening form is finished PHYSICIANS REVIEW AND ADMISSION DETERMINATION Admit - Based on my review of the Pre-Admission Screening results, in my medical judgment and experie nce, I concur with the findings and recommend admission to [facility], as this patient requires an IRF level of care. SIGNATURE PANEL: Construction Trades Contractor - [electronically] signed by Rosa M Nguyen on 03/02/2020 at 09:38 (CDT) Construction Trades Contractor - [electronically] signed by Kimo Garcia PT on 03/02/2020 at 09:53 (CDT) Physician Reviewer - [electronically] signed by Dr. Benedict Alvarez M.D. on 03/02/2020 at 10:10 (CDT )
--- OUTSIDE RECORDS SUMMARY | 2020-03-02 15:04 | XMS REPORT | Summary of Care ---
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 [place] [address] [phone] Allergies No Known Allergiesdocumented as of this [...] old male referred by Dr. Bradley of [place], [place] for osteonecrosis of mandible and maxilla. He presents today for follow-up. He reports improvement of his symptoms sincebeginning Doxycyline and Peridex in January 2019. Patient with a history of metastatic prostate cancer diagnosed in 2013 and was started on monthly IVinjections of Zometa. Patient reports having full mouth extraction in [address] Jonny Jimenez of [place]. Patient states he feels that there are some 'holes' in his jaw. Patient was seen with Dr. Bradley who provided Amoxicillin and OMFS referral. Patient states he has not returned to [facility] for follow up or evaluation of non-healing sites. Histories Past Medical History: Diagnosis Date BPH (benign prostatic hyperplasia) HTN (hypertension) HI (myocardial infarction) Prostate cancer Past Surgical History: [...] file Gets together: Not on file Attends advent service: Not on file Active member of [...] chest pain, (-) palpitations, (-) syncope; h/o HI and stenting - plavix d/c'ed in 2018 [...] Date BPH (benign prostatic hyperplasia) HTN (hypertension) HI (myocardial infarction) Prostate cancer Mk Paredes is [...] Browning, DDS [address] [place] [address] 555 Health Maintenance Due Date Last Done [...]
--- OUTSIDE RECORDS SUMMARY | 2020-03-02 15:04 | XMS REPORT | Continuity of Care Document ---
:1940 Author Organization [facility] t Address [address] [place] [address] Care Team Providers Name Role Phone Yovany Galaviz DMD Attending Clinician Nam VO R Attending Clinician Problems Condition Condition Condition Status Onset Resolution Last Treating Co mments Source Name Details Category Date Date Treatment Clinician Date Bladder Bladder Diagnosis [facility] - thickening thickening Me moria l [facility] Clinics Prostate Prostate Diagnosis Active [facility] cancer cancer [facility] - Memoria l [facility] Clinics Stricture Stricture Diagnosis Active C HI [facility] of male of male [facility] - urethra, urethra, Memori a unspecifie unspecifie l d d [facility] stricture stricture ent type type Clinics Allergies, Adverse Reactions, Alerts This patient has no known allergies or adverse reactions. Medications Ordered Filled Start Stop Current Ordering Indication Dosage Frequency Signature Comments Components Source Medication Medication Date Date Medication? Clinician (SIG) Name Name Bren Correia Yes Burke [address] [facility] [address] [place] on an [facility] - empty Memoria stomach l [facility] Clinics Metoprolol Metoprolol Yes Burke [address] [address] Tartrate Tartrate Viet with food [facility] - [facility] l [facility] Losartan Losartan Yes Burke as [facility] Potassium Potassium Viet directed [facility] - [facility]ics Senna S Senna S Yes Burke [address] Viet in the [facility] - evening as Memoria needed l [facility] Clinics Tramadol Tramadol Yes Burke [address] HCl HCl Orchard as needed [facility] - [facility]oria l [facility] Clinics PrednisoLON PrednisoLON Yes Burke [address] E Or[place] with food [facility] - or milk in [facility] the l morning [facility] Clinics Clopidogrel Clopidogrel Yes Burke [address] [address] Bisulfate [facility]ulfate Viet [facility] Lactulose Lactulose Yes Burke [address] [place] Clinics Gentamicin Gentamicin Yes Burke [address] Sulfate Sulfate Viet into [facility] - affected [facility] eye l Outpati ent Clinics Colace Colace Yes Burke [address] [facility] [address] [place] as needed [facility] l [facility] Clinics Tamsulosin Tamsulosin Yes Burke [address] HCl HCl [place] [facility] l [facility] Clinics Gabapentin Gabapentin Yes Burke [address] Viet kes - [facility] l [facility] Clinics Procedures This patient has no known procedures. Encounters Start End Encounter Admission Attending Care Care Encounter Source Date/Time Date/Time Type Type Clinicians Facility Department ID 2020-02-04 2020-02-04 FERNANDO Best [id number] 00:00:00 00:00:00 Management Serge SAXENA [id number] [facility] [id number] 2020-01-29 2020-01-29 Office GELY Browning [id number] 16:10:52 16:47:06 Visit Man MCWILLIAMS [id number] [facility] [id number] 2019-06-11 2019-06-11 Outpatient Krystian Bolandt [id number] 15:15:00 15:15:00 t Specialty/U Vicki kes - Specialty rology Memori a /Urology Clinic l Clinic [facility] 2019-05-28 2019-05-28 Outpatient Krystian [place]bo[place] [id number] 10:11:00 10:11:00 t Specialty/U Vicki kes - Specialty rology Memori a /Urology Clinic l [facility] 2019-02-26 2019-02-26 Outpatient Krystian [place] [id number] 14:00:00 14:00:00 t Specialty/U Vicki kes - Specialty rology Memori a /Urology Clinic l [facility] 2019-02-13 2019-02-13 Outpatient Krystian Sanchez [id number] 09:53:00 09:53:00 t Specialty/U Vicki kes - [facility] l [facility] 2019-01-15 2019-01-15 Outpatient Krystian Sanchez [id number] 13:00:00 13:00:00 t Specialty/U Vicki maxwells - Specialty rology [facility] a /Urology Clinic l [facility] Results This patient has no known results.
--- OUTSIDE RECORDS SUMMARY | 2020-03-02 15:04 | XMS REPORT | Summary of Care ---
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 [place] [address] [place] [address] [phone] Allergies No Known Allergiesdocumented as of this [...] old male referred by Dr. Bradley of [place], [place] for osteonecrosis of mandible and maxilla. He presents today for follow-up. He reports improvement of his symptoms sincebeginning Doxycyline and Peridex in January 2019. Patient with a history of metastatic prostate cancer diagnosed in 2013 and was started on monthly IVinjections of Zometa. Patient reports having full mouth extraction in [address] Jonny Jimenze of [place]. Patient states he feels that there are some 'holes' in his jaw. Patient was seen with Dr. Bradley who provided Amoxicillin and OMFS referral. Patient states he has not returned to [facility] for follow up or evaluation of non-healing sites. Histories Past Medical History: Diagnosis Date BPH (benign prostatic hyperplasia) HTN (hypertension) LA (myocardial infarction) Prostate cancer Past Surgical History: [...] file Gets together: Not on file Attends mormon service: Not on file Active member of [...] chest pain, (-) palpitations, (-) syncope; h/o [place] and stenting - plavix d/c'ed in 2018 [...] Date BPH (benign prostatic hyperplasia) HTN (hypertension) LA (myocardial infarction) Prostate cancer Mk Paredes is [...] Browning, DDS [address] [place] [address] 555 Health Maintenance Due Date Last Done [...]
--- OUTSIDE RECORDS SUMMARY | 2020-03-02 15:05 | XMS REPORT | Summary of Care ---
:1940 Author Organization [facility] Address [address] [place] [address] Care Team Providers Name Role Phone Kendall Branham Primary Care Provider Reason for Visit Reason Comments Referral/consult Encounter Details Date Type Department Care Team Description 02/04/2020 Case Management [facility] Serge Galaviz, Referr al/consult Hospitals and D[facility] Clinics [address] [place] [address] [place] [address] [place], [place] [phone] Allergies No Known Allergiesdocumented as of this [...] Browning, DDS [address] [place], [place] [address] [phone] Health Maintenance Due Date Last Done Comments [...] Effective Phone Address T e Group Dates [facility] [id number] 2019-Raul sorenson [facility] - MEDICARE nt HMO MANAGED MEDICARE ADVANTAGE documented as of this encounter
--- OUTSIDE RECORDS SUMMARY | 2020-03-02 15:05 | XMS REPORT | Summary of Care ---
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 [place] [id number] [place] [address] [phone] Allergies No Known Allergiesdocumented as of this [...] old male referred by Dr. Bradley of [place], [place] for osteonecrosis of mandible and maxilla. He presents today for follow-up. He reports improvement of his symptoms sincebeginning Doxycyline and Peridex in January 2019. Patient with a history of metastatic prostate cancer diagnosed in 2013 and was started on monthly IVinjections of Zometa. Patient reports having full mouth extraction in [address] Jonny Jimenez of [place]. Patient states he feels that there are some 'holes' in his jaw. Patient was seen with Dr. Bradley who provided Amoxicillin and OMFS referral. Patient states he has not returned to [facility] for follow up or evaluation of non-healing sites. Histories Past Medical History: Diagnosis Date BPH (benign prostatic hyperplasia) HTN (hypertension) [place] (myocardial infarction) Prostate cancer Past Surgical History: [...] file Gets together: Not on file Attends hoahaoism service: Not on file Active member of [...] chest pain, (-) palpitations, (-) syncope; h/o [place] and stenting - plavix d/c'ed in 2018 [...] Date BPH (benign prostatic hyperplasia) HTN (hypertension) CO (myocardial infarction) Prostate cancer Mk Paredes is [...] Browning, DDS [address] [place] [address] 555 Health Maintenance Due Date Last Done [...]
[2020-03-02] MEDS ORDERED: ONDANSETRON 4 MG (ODT) TAB PO PRN (15:38)
[2020-03-02] MEDS ORDERED: BISACODYL 10 MG RECTAL SUPP PR PRN (15:43)
[2020-03-02 16:25] LABS: Urine Appearance CLEAR; Urine Bilirubin NEGATIVE (NEG); Urine Blood NEGATIVE (NEG); Urine Color YELLOW; Urine Glucose NEGATIVE (NEG); Urine Protein NEGATIVE (NEG); Urine Urobilinogen 0.2 mg/dL (0.2-1.0)
[2020-03-02 16:33] LABS: Urine Bacteria <20 /HPF (NONE SEEN); Urine RBC <5 /HPF (NONE SEEN)
[2020-03-02 16:34] LABS: Urine Culture Reflex Order NOT NEEDED
[2020-03-02] MEDS: HYDROCODONE/APAP 10/325 TAB PO PRN ×2 (16:36→20:18)
[2020-03-02] MEDS: CEPHALEXIN 500 MG CAP PO SCH (16:38)
[2020-03-02] MEDS: ENOXAPARIN 40 MG/0.4 ML SQ SCH (16:38)
[2020-03-02] MEDS: SODIUM CHLORIDE 0.9% 10ML INJ IV SCH (20:00)
[2020-03-02] MEDS: predniSONE 5 MG TAB PO SCH (20:19)
[2020-03-02] MEDS: MELATONIN 3 MG TABLET PO PRN (20:20)
[2020-03-02] MEDS: JUVEN PACKET PO SCH (20:20)
[2020-03-03] MEDS: CEPHALEXIN 500 MG CAP PO SCH ×3 (00:03→16:42)
[2020-03-03] MEDS: HYDROCODONE/APAP 10/325 TAB PO PRN (01:11)
[2020-03-03 06:02] LABS: Absolute Lymphocytes (CBC) 1.5 K/uL (0.7-4.9); Basophils % 0.9 % (0-1.3); Hematocrit 35.4 % (39.6-49.0); Lymphocytes % 18.1 % (15.3-44.8); MPV 7.6 fL (7.6-11.3); RBC Red Blood Cell Count 3.57 M/uL (4.33-5.43)
[2020-03-03 06:41] LABS: Albumin 2.9 g/dL (3.4-5.0); Magnesium 2.4 mg/dL (1.8-2.4); Potassium 4.2 mmol/L (3.5-5.1); Prealbumin 17.1 mg/dL (20-40)
[2020-03-03] MEDS: JUVEN PACKET PO SCH ×2 (08:00→08:08)
[2020-03-03] MEDS: SODIUM CHLORIDE 0.9% 10ML INJ IV SCH ×2 (08:00→20:00)
[2020-03-03] MEDS: ACETAMINOPHEN 500 MG TAB PO PRN (08:06)
[2020-03-03] MEDS: LOSARTAN POTASSIUM 50 MG TABLET PO SCH ×2 (08:07→08:10)
[2020-03-03] MEDS: predniSONE 5 MG TAB PO SCH ×2 (08:07→20:31)
[2020-03-03] MEDS: MEMANTINE HCL 10 MG TABLET PO SCH (08:08)
[2020-03-03] MEDS: TAMSULOSIN 0.4 MG SR CAP PO SCH (08:08)
[2020-03-03] MEDS: ENOXAPARIN 40 MG/0.4 ML SQ SCH (16:43)
--- NOTE | 2020-03-03 18:33 | R.HP ---
HISTORY AND PHYSICAL FACILITY: [facility] ENCOUNTER DATE AND TIME: 03/03/2020 18:28 (CDT) MR#: [id number] NAME JACINDA ESQUEDA ADDRESS: [id number] CITY: [place] [address] [address] PHONE: DATE OF : 1940 AGE: 79 SSN# [id number] GENDER: Male DEXTERITY Right-handed MARITAL STATUS RACE Unknown race PRE-HOSPITAL LIVING SETTING 01 - Home (private home/apt. board/care, assisted living, care home, transitional living) PRE-HOSPITAL LIVING WITH Alone ENCOUNTER PHYSICIAN: Dr. Benedict Alvarez M.D. REFERRING DOCTOR: DR CHAUDHRY DATE OF ADMISSION: 03/02/2020 13:02 (CDT) REFERRING FACILITY [facility] HOME TYPE AND DETAILS: Type of home: single family house # of levels in the residence: 2 # of steps within the residence: 1 # of steps to enter the residence: 1 ONSET DATE: 02/24/2020 PRIMARY DIAGNOSIS-RELATED SURGERIES: No surgeries related to the primary diagnosis were performed. HISTORY OF PRESENT ILLNESS (HPI): Pt. is a 79 yo Right-handed male of unknown race. 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 His impairment category is Medically Complex Conditions 17 - Neoplasms (17.2). Pre-morbidly, Pt. was independent/mod-I in Locomotion, Safety Awareness, Social Cognition, Transfers Control, and Communication; and he had good Sphincter Control, Self-Care, and Endurance. Currently, he has deficits of Locomotion, Safety Awareness, Social Cognition, Sphincter Control, Comm unication, and Endurance. Pt. is now referred to [facility] for acute in-patient rehabilitation in order to maximize patient's functional independence in activities of daily living, strength, ROM, and mobi lity. Patient has realistic goal of being discharged at assistance level 7-Ind to reside at Home with Pt s elf. MEDICATION ALLERGIES: No Known Drug Allergies (NKDA) ENVIRONMENTAL ALLERGIES: - Substance Allergies None Known - Other Allergies None Known PAST MEDICAL HISTORY: PROSTATE CANCER W METS HTN DEMENTIA HEART STENTS METASTATIC DISEASE MULT. 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 HISTORY SOCIAL HISTORY: - Home Living Alone REVIEW OF SYSTEMS: - Gen No Chills Fatigue No Fever - Eyes No Double Vision No itchiness - ENMT No Difficulty Swallowing - CVS No Chest Discomfort No Chest Pain Fatigue No Weight Gain - Resp No Cough No Shortness of Breath - GI Continent No Abdominal Pain No Constipation No Diarrhea - Continent No Kidney Pain No Painful Urination No Urinary Urgency - MSK No Joint Pain Muscle Cramps Stiffness - Skin No Itching No Rash No Suspicious Lesions - Neuro Coordination Difficulty No Difficulty with Concentration No Memory Loss No Seizures Weakness - Psych No Anxiety No Depression No HIV Exposure No Persistent Infections No Seasonal Allergies - Endo No Cold/Heat Intolerance No Excessive Hunger No Excessive Thirst No Excessive Urination PHYSICAL EXAM - Gen Alert and awake Lying in bed No apparent distress Oriented to: person, time, and place - Skin No skin breakdown. No abnormalities - Eyes No abnormalities - ENMT No abnormalities - Neck No abnormalities - CVS RRR - Chest No abnormalities - Resp Clear to auscultation - Abd + bowel sounds - GI Non distended Deferred - No abnormalities - Ext No significant edema - MSK 4+/5 weakness in both lower extremities. - Neuro No focal deficits - Psych No abnormalities VITAL SIGNS Temperature: 97.0 F SBP/DBP: 119/64 Pulse: 68 Resp: 16 NURSING: - Shower allowing shower ACTIVITIES OOB only with supervision QI SCORES: - Self-Care A. Eating 03-Partial/moderate assistance B. Oral hygiene 03-Partial/moderate assistance C. Toileting hygiene 02-Substantial/maximal assistance E. Shower/bathe self 02-Substantial/maximal assistance F. Upper body dressing 03-Partial/moderate assistance G. Lower body dressing 03-Partial/moderate assistance H. Putting on/taking off footwear 88-Not attempted due to medical condition or safety concerns - Mobility A. Roll left and right 03-Partial/moderate assistance B. Sit to lying 03-Partial/moderate assistance C. Lying to sitting on side of bed 03-Partial/moderate assistance D. Sit to stand 04-Supervision or touching assistance E. Chair/jbl-fc-aqaju transfer 04-Supervision or touching assistance F. Toilet transfer 02-Substantial/maximal assistance G. Car transfer 88-Not attempted due to medical condition or safety concerns I. Walk 10 feet 04-Supervision or touching assistance J. Walk 50 feet with two turns 04-Supervision or touching assistance K. Walk 150 feet 04-Supervision or touching assistance L. Walking 10 feet on uneven surfaces 88-Not attempted due to medical condition or safety concerns M. 1 step (curb) 88-Not attempted due to medical condition or safety concerns N. 4 steps 88-Not attempted due to medical condition or safety concerns O. 12 steps 88-Not attempted due to medical condition or safety concerns P. Picking up object 88-Not attempted due to medical condition or safety concerns R. Wheel 50 feet with two turns 88-Not attempted due to medical condition or safety concerns S. Wheel 150 feet 03-Partial/moderate assistance - Bladder and Bowel Bladder continence Bowel continence - Endurance Fair - Balance Fair - Safety Awareness Fair CURRENT FUNC. DEFICITS: Self-Care, Mobility, Endurance, Balance, and Safety Awareness MEDICATIONS: - Other See attached MAR (Medication Administration Record) ASSESSMENT: Pt. 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 was independent/mod-I in L ocomotion, Safety Awareness, Social Cognition, Transfers Control, and Communication; and he had good Sphincter Control, Self-Care, and Endurance.Currently, he has deficits of Locomotion, Safety Awarenes s, Social Cognition, Sphincter Control, Communication, and Endurance.Pt. is now referred to [facility] for acute in-patient rehabilitation in order to maximize patient's functiona l independence in activities of daily living, strength, ROM, and mobility.- Rehab Goal Patient has realistic goal of being discharged at assistance level 7-Ind to reside at Home with Pt s elf. REHAB PLAN: - Physical Therapy Gait dysfunction - to improve, our physical therapists will perform initial evaluation of pt's status upon admission and devise an individualized program for Gait Training, and Wheel Chair mobility Need for home safety evaluation - to improve, our physical therapists will perform initial evaluation of pt's status upon admission and devise an individualized program for Home Evaluation Need in caregiver upon discharge - to improve, our physical therapists will perform initial evaluatio n of pt's status upon admission and devise an individualized program for Caregiver Training New precaution - to improve, our physical therapists will perform initial evaluation of pt's status u natalia admission and devise an individualized program for Patient precaution education Edema - to improve, our physical therapists will perform initial evaluation of pt's status upon admi ssion and devise an individualized program for Elevation Training, and Lymphedema Therapy Poor endurance - to improve, our physical therapists will perform initial evaluation of pt's status u natalia admission and devise an individualized program for Endurance Training Weakness - to improve, our physical therapists will perform initial evaluation of pt's status upon ad mission and devise an individualized program for Aquatic Therapy, Neuromuscular Reeducation, and Stre ngthening Achieving independence - to improve, our physical therapists will perform initial evaluation of pt's status upon admission and devise an individualized program for Community Reintegration Activities - Occupational Therapy Cognitive deficits - to improve, our occupation therapists will perform initial evaluation of pt's st atus upon admission and devise an individualized program for Cognition - orientation Need for intensive care specialist - to improve, our occupation therapists will perform initial evaluation of pt's s tatus upon admission and devise an individualized program for Caregiver Training Weakness - to improve, our occupation therapists will perform initial evaluation of pt's status upon admission and devise an individualized program for Aquatic Therapy, Balance, Endurance, UE ROM, and U E strengthening MEDICAL PLAN: - Diet Type Start Regular - Diet - Liquid Texture Start Regular - Tube Feed Start N/A - Other See attached MAR (Medication Administration Record) - Diet - Solid Texture Regular - Shower shower DISCHARGE PLAN: - Estimated Length of Stay (days) 13. - Consensus on plan Discharge plan has been discussed with primary caregiver. Patient/Family is in agreement with the luanne n. Primary caregiver is in agreement with the plan. - Patient/Family Goals Return home independently. - Planned Living Setting Upon Discharge Home, to live alone. Transitional Living. Primary caregiver: Pt self. SIGNATURE PANEL: (CDT)
--- NOTE | 2020-03-03 18:34 | PAPE ---
POST ADMISSION PHYSICIAN EVALUATION PATIENT: [facility] MR# [id number] REFERRING DOCTOR DR CHAUDHRY EVALUATION DATE AND TIME 03/03/2020 18:32 (CDT) NAME JACINDA ESQUEDA DATE OF 1940 AGE 79 PHONE SSN# [id number] GENDER male EVALUATING PHYSICIAN Dr. Benedict Alvarez M.D. 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 PATIENT NEEDS CLOSE MEDICAL SUPERVISION BY A REHABILITATION PHYSICIAN FOR: Coordination of Treatment Team PATIENT REQUIRES 24X7 REHAB NURSING FOR MEDICAL AND FUNCTIONAL MGT. OF THE FOLLOWING DEFICITS: Disease Management Medication Management Patient/Family Education Providing Safe Environment PATIENT REQUIRES INTENSIVE, COORDINATED INTERDISCIPLINARY APPROACH TO REHAB: Arranging Home Equipment/Services Discharge Planning Family Intervention/Training Dining Server/Case Management LIST OF IDENTIFIED AND POTENTIAL PROBLEMS: Alteration in leisure activities Bladder, Incontinence Bowel, Incontinence Infection, Actual or Potential Mobility Impaired Pain, Alteration in Comfort Self Care Deficit Skin Integrity, Actual or Potential Urinary Tract Infection (UTI), Actual or Potential PATIENT COULD BE AT RISK FOR COMPLICATIONS FROM ADVERSE MEDICAL CONDITIONS DUE TO HIS/HER COMORBIDITI ES AND THE RIGORS OF THE INTENSIVE REHABILLITATION PROGRAM. METHODS OR INTERVENTIONS TO AVOID COMPLIC ATIONS INCLUDE: - Infection Clinical staff to assess and manage the signs and symptoms of infection including fever, redness, war mth, etc. - Urinary Tract Infection - Falls Patient will be evaluated for Fall Precautions and will be placed on Fall Precautions as indicated pe r protocol. - Skin Breakdown Nursing will assess skin daily using assessment tool and will place on Skin Breakdown Precautions as indicated per protocol. - Pain Clinical staff may employ non-medication methods such as massage, distraction, decrease stimulus, etc . as needed. Clinical staff will assess patient's pain level every shift per protocol to assess and e nsure pain management effectiveness. Medications will be given and the pain level re-assessed. PRELIMINARY PLAN OF CARE: - Physical Therapy Patient needs Physical Therapy for a daily minimum of 1.5 hours at least 5 out of 7 days, to improve: Mobility, Strengthening, Transfers, Stretching, ROM, Endurance, Ability to manage stairs, Gait, and Balance. - Speech Therapy Patient needs Speech Therapy for a daily minimum of 0.5 hours at least 5 out of 7 days, to improve: S wallowing, Cognition, Language Skills, and Compensatory Strategies. - Rehabilitation Nursing Patient requires 24x7 Rehabilitation Nursing for: Pain Issues, Identifying and preventing risk factor s, Monitoring and reporting current medical conditions, Assisting with ambulation and transfer, Vickie ting with all ADL-s, Teaching patients about disease process and medications, Family teaching, Provid ing safe environment, Bowel and Bladder Issues, Skin Integrity, and Medication Management. Patient needs Dining Server and/or Case Management for: Discharge Planning, Arranging Home Equipmen t or Services, and Family Interventions. - Dietary and Nutrition Services Patient needs Dietary and Nutrition Services for: Adequate Nutrition, Nutritional Supplements, and Nu tritional Education. - Occupational Therapy Patient needs Occupational Therapy for a daily minimum of 1.5 hours at least 5 out of 7 days, to impr ove Activities of Daily Living, including: Eating, Grooming, Bathing, Dressing, Toileting, Toilet Tra nsfers, Community Reintegration, Higher functional activities, Adaptive Equipment, Splinting, Househo ld Tasks, and Other activities as determined. QI SCORES: - Self-Care A. Eating 03-Partial/moderate assistance B. Oral hygiene 03-Partial/moderate assistance C. Toileting hygiene 02-Substantial/maximal assistance E. Shower/bathe self 02-Substantial/maximal assistance F. Upper body dressing 03-Partial/moderate assistance G. Lower body dressing 03-Partial/moderate assistance H. Putting on/taking off footwear 88-Not attempted due to medical condition or safety concerns - Mobility A. Roll left and right 03-Partial/moderate assistance B. Sit to lying 03-Partial/moderate assistance C. Lying to sitting on side of bed 03-Partial/moderate assistance D. Sit to stand 04-Supervision or touching assistance E. Chair/auv-ve-crvxz transfer 04-Supervision or touching assistance F. Toilet transfer 02-Substantial/maximal assistance G. Car transfer 88-Not attempted due to medical condition or safety concerns I. Walk 10 feet 04-Supervision or touching assistance J. Walk 50 feet with two turns 04-Supervision or touching assistance K. Walk 150 feet 04-Supervision or touching assistance L. Walking 10 feet on uneven surfaces 88-Not attempted due to medical condition or safety concerns M. 1 step (curb) 88-Not attempted due to medical condition or safety concerns N. 4 steps 88-Not attempted due to medical condition or safety concerns O. 12 steps 88-Not attempted due to medical condition or safety concerns P. Picking up object 88-Not attempted due to medical condition or safety concerns R. Wheel 50 feet with two turns 88-Not attempted due to medical condition or safety concerns S. Wheel 150 feet 03-Partial/moderate assistance - Bladder and Bowel Bladder continence Bowel continence - Endurance Fair - Balance Fair - Safety Awareness Fair POTENTIAL FUNCTIONAL GOALS FOR PATIENT TO ACHIEVE BY DISCHARGE: - Safety Precaution Patient will remain free from falls or injury at time of discharge. - Bed Mobility Patient will perform bed mobility at 4-Shanon level of assistance. - Transfers Patient will complete transfers from bed to chair at 4-Shanon level of assistance. - Mobility Patient will ambulate 150 ft with 4-Shanon level of assistance with RW. PATIENT REHAB POTENTIAL Stephan ESQUEDA is able and expected to receive 3 hours of individualized therapy daily on at least 5 of every 7 days Stephan ESQUEDA's prognosis for significant practical improvement within a reasonable period of time appe ars Good Expected level of measurable improvement will be of a practical value to Stephan ESQUEDA's functional cap acity or adaptations to impairments Has a viable Discharge Plan Medically appropriate; condition is sufficiently stable to participate in intensive rehab program DISCHARGE PLAN: - Estimated Length of Stay (days) 13. - Consensus on plan Discharge plan has been discussed with primary caregiver. Patient/Family is in agreement with the luanne n. Primary caregiver is in agreement with the plan. - Patient/Family Goals Return home independently. - Planned Living Setting Upon Discharge Home, to live alone. Transitional Living. Primary caregiver: Pt self. CONCLUSION ON REHABILITATION NECESSITY: I have evaluated patient's pre-admission functional status and, comparing it to the patient's post-ad mission functional status now, I conclude that the pre-admission assessment was accurate. Patient's c ondition on admission supports the medical necessity of admission to [facility]. It is safe to proceed with patient's therapy program. SIGNATURE PANEL: (CDT)
[2020-03-03] MEDS: HYDROCODONE/APAP 5/325 MG TAB PO PRN (20:31)
[2020-03-03] MEDS: PROMOD 30 ML DOSE PO SCH (20:32)
[2020-03-03] MEDS: TRAZODONE 50 MG TABLET PO PRN (20:32)
[2020-03-03] MEDS: MELATONIN 3 MG TABLET PO PRN (23:16)
[2020-03-04] MEDS: CEPHALEXIN 500 MG CAP PO SCH ×3 (00:38→16:22)
[2020-03-04] MEDS: predniSONE 5 MG TAB PO SCH ×2 (07:29→19:54)
[2020-03-04] MEDS: MEMANTINE HCL 10 MG TABLET PO SCH (07:29)
[2020-03-04] MEDS: TAMSULOSIN 0.4 MG SR CAP PO SCH (07:29)
[2020-03-04] MEDS: PROMOD 30 ML DOSE PO SCH ×2 (07:31→19:55)
[2020-03-04] MEDS: SODIUM CHLORIDE 0.9% 10ML INJ IV SCH ×2 (07:32→19:55)
[2020-03-04] MEDS: LOSARTAN POTASSIUM 50 MG TABLET PO SCH (07:35)
[2020-03-04] MEDS: ACETAMINOPHEN 500 MG TAB PO PRN (11:15)
[2020-03-04] MEDS: HYDROCODONE/APAP 5/325 MG TAB PO PRN (12:55)
--- NOTE | 2020-03-04 16:02 | FAST ---
OT QI REPORT FORM ENCOUNTER DATE AND TIME: 03/04/2020 08:00 (CDT) NAME JACINDA ESQUEDA DATE OF : 1940 DATE OF ADMISSION: 03/02/2020 13:02 (CDT) PHONE: AGE: 79 N# [id number] GENDER: Male ENCOUNTER PHYSICIAN: Dr. Benedict Alvarez M.D. 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 EATING: EATING - STEP 1: Does the patient complete the activity by him/herself with no assistance (physical, verbal/nonverbal cueing, setup/clean-up)? No. EATING - STEP 2: Does the patient need only setup/clean-up assistance from one helper? Yes. 1. [id number] ADMISSION PERFORMANCE: Setup or clean-up assistance CODE: 05 ORAL HYGIENE: Not assessed/no information CODE: - TOILETING HYGIENE: TOILETING HYGIENE - STEP 1: Does the patient complete the activity by him/herself with no assistance (physical, verbal/nonverbal cueing, setup/clean-up)? No. TOILETING HYGIENE - STEP 2: Does the patient need only setup/clean-up assistance from one helper? No. TOILETING HYGIENE - STEP 3: Does the patient need only verbal/nonverbal cueing or touching/steadying/contact guard assistance fro m one helper? Yes. 1. [id number] ADMISSION PERFORMANCE: Supervision or touching assistance CODE: 04 BATHING: SHOWER/BATHE SELF - STEP 1: Does the patient complete the activity by him/herself with no assistance (physical, verbal/nonverbal cueing, setup/clean-up)? No. SHOWER/BATHE SELF - STEP 2: Does the patient need only setup/clean-up assistance from one helper? No. SHOWER/BATHE SELF - STEP 3: Does the patient need only verbal/nonverbal cueing or touching/steadying/contact guard assistance fro m one helper? Yes. 1. [id number] ADMISSION PERFORMANCE: Supervision or touching assistance CODE: 04 DRESSING - UPPER BODY: DRESSING - UPPER BODY - STEP 1: Does the patient complete the activity by him/herself with no assistance (physical, verbal/nonverbal cueing, setup/clean-up)? No. DRESSING - UPPER BODY - STEP 2: Does the patient need only setup/clean-up assistance from one helper? Yes. 1. [id number] ADMISSION PERFORMANCE: Setup or clean-up assistance CODE: 05 DRESSING - LOWER BODY: DRESSING - LOWER BODY - STEP 1: Does the patient complete the activity by him/herself with no assistance (physical, verbal/nonverbal cueing, setup/clean-up)? No. DRESSING - LOWER BODY - STEP 2: Does the patient need only setup/clean-up assistance from one helper? No. DRESSING - LOWER BODY - STEP 3: Does the patient need only verbal/nonverbal cueing or touching/steadying/contact guard assistance fro m one helper? No. DRESSING - LOWER BODY - STEP 4: Does the patient need physical assistance - for example lifting or trunk support from one helper - wi th the helper providing less than half of the effort? Yes. 1. [id number] ADMISSION PERFORMANCE: Partial/moderate assistance CODE: 03 PUTTING ON/TAKING OFF FOOTWEAR: FOOTWEAR - STEP 1: Does the patient complete the activity by him/herself with no assistance (physical, verbal/nonverbal cueing, setup/clean-up)? No. FOOTWEAR - STEP 2: Does the patient need only setup/clean-up assistance from one helper? No. FOOTWEAR - STEP 3: Does the patient need only verbal/nonverbal cueing or touching/steadying/contact guard assistance fro m one helper? No. FOOTWEAR - STEP 4: Does the patient need physical assistance - for example lifting or trunk support from one helper - wi th the helper providing less than half of the effort? No. FOOTWEAR - STEP 5: Does the patient need physical assistance - for example lifting or trunk support from one helper - wi th the helper providing more than half of the effort? Yes. 1. [id number] ADMISSION PERFORMANCE: Substantial/maximal assistance CODE: 02 DOES THE PATIENT USE A WHEELCHAIR/SCOOTER? CODE: EXPR INDICATE THE TYPE OF WHEELCHAIR/SCOOTER USED: CODE: EXPR INDICATE THE TYPE OF WHEELCHAIR/SCOOTER USED: CODE: EXPR BLADDER AND BOWEL: CODE: EXPR CODE: EXPR SIGNATURE PANEL: The following modified sections: 1. [id number] Admission Performance, 1. [id number] Admission Performance, 1. [id number] Admission Performance, 1. [id number] Admission Performance, 1. [id number] Admission Performance, 1. [id number] Admission Performance, 1. [id number] Admission Performance, 1. [id number] Admission Performance were [electronically] signed by Amaya Ng OT on MonMar 04 2020 16:01:08 GMT-0500 (Ce ntral Daylight Time)
[2020-03-04] MEDS: ENOXAPARIN 40 MG/0.4 ML SQ SCH (16:22)
--- NOTE | 2020-03-04 19:24 | R.PN ---
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 Pt denied any depression. WBC 8.3, Hgb 11.7, prealbumin 17.1, UA is negative. Ambulated 1050' with standby assistance using a r olling walker. Up and down 15 steps with contact guard assistance. VITAL SIGNS Temperature: 97.5 F SBP/DBP: 141/65 Pulse: 88 Resp: 16 MEDICATION ALLERGIES: No Known Drug Allergies (NKDA) ENVIRONMENTAL ALLERGIES: - Substance Allergies None Known - Other Allergies None Known NURSING: - Shower allowing shower ACTIVITIES OOB only with supervision THERAPIES: - Dietary and Nutrition Adequate Nutrition. Nutritional Education. Nutritional Supplements. PHYSICAL EXAM - Gen Alert and awake Lying in bed No apparent distress Oriented to: person, time, and place - Skin No skin breakdown. No abnormalities - Eyes No abnormalities - ENMT No abnormalities - Neck No abnormalities - CVS RRR - Chest No abnormalities - Resp Clear to auscultation - Abd + bowel sounds - GI Non distended Deferred - No abnormalities - Ext No significant edema - MSK 4+/5 weakness in both lower extremities. - Neuro No focal deficits - Psych No abnormalities ASSESSMENT: Pt. is a 79 yo Right-handed male of unknown race.On 02/24/2020 he was admitted to [facility] with diagnosis HX OF PROSTATE CANCER W BONY METASTASIS IN THE LUMBOSACRAL.His impairment categor y is Medically Complex Conditions 17 - Neoplasms (17.2).Pre-morbidly, Pt. was independent/mod-I in L ocomotion, Safety Awareness, Social Cognition, Transfers Control, and Communication; and he had good Sphincter Control, Self-Care, and Endurance.Currently, he has deficits of Locomotion, Safety Awarenes s, Social Cognition, Sphincter Control, Communication, and Endurance.Pt. is now referred to [facility] for acute in-patient rehabilitation in order to maximize patient's functiona l independence in activities of daily living, strength, ROM, and mobility.- Rehab Goal Patient has realistic goal of being discharged at assistance level 7-Ind to reside at Home with Pt s elf. MDM/PLAN: - Physical Therapy Gait dysfunction - to improve, our physical therapists will perform initial evaluation of pt's statu s upon admission and devise an individualized program for Gait Training, and Wheel Chair mobility Need for home safety evaluation - to improve, our physical therapists will perform initial evaluatio n of pt's status upon admission and devise an individualized program for Home Evaluation Need in caregiver upon discharge - to improve, our physical therapists will perform initial evaluati on of pt's status upon admission and devise an individualized program for Caregiver Training New precaution - to improve, our physical therapists will perform initial evaluation of pt's status upon admission and devise an individualized program for Patient precaution education Edema - to improve, our physical therapists will perform initial evaluation of pt's status upon admis lex and devise an individualized program for Elevation Training, and Lymphedema Therapy Poor endurance - to improve, our physical therapists will perform initial evaluation of pt's status upon admission and devise an individualized program for Endurance Training Weakness - to improve, our physical therapists will perform initial evaluation of pt's status upon a dmission and devise an individualized program for Aquatic Therapy, Neuromuscular Reeducation, and Str engthening Achieving independence - to improve, our physical therapists will perform initial evaluation of pt's status upon admission and devise an individualized program for Community Reintegration Activities - Occupational Therapy Cognitive deficits - to improve, our occupation therapists will perform initial evaluation of pt's s tatus upon admission and devise an individualized program for Cognition - orientation Need for transitional care liaison - to improve, our occupation therapists will perform initial evaluation of pt's status upon admission and devise an individualized program for Caregiver Training Weakness - to improve, our occupation therapists will perform initial evaluation of pt's status upon admission and devise an individualized program for Aquatic Therapy, Balance, Endurance, UE ROM, and UE strengthening - Other See attached MAR (Medication Administration Record) - Diet Type Continue Regular - Diet - Liquid Texture Continue Regular - Tube Feed Continue N/A - Diet - Solid Texture Continue Regular - Shower allowing shower FUNCTIONAL STATUS: UPDATED AT WEEKLY TEAM CONFERENCE - Bladder Same accident frequency: 7-Ind - No accidents in the past 7 days - Bowel Same accident frequency: 7-Ind - No accidents in the past 7 days - Walking Same score based on distance walked: 0(N/A) Same score based on distance walked: 3(>=150ft) - Wheelchair Same score based on distance traveled: 0(N/A) FUNCTIONAL STATUS: - Self-Care A. Eating Ind B. Grooming Aisha C. Bathing Shanon D. Dressing - Upper sup E. Dressing - Lower Shanon F. Toileting Aisha - Sphincter Control G. Bladder control sup H. Bowel control sup - Transfers Control I. Bed/Chair/Wheelchair sup J. Toilet sup K. Tub/Shower Shanon - Locomotion L. Walk/Wheelchair (B) Aisha M. Stairs sup - Communication N. Comprehension (B) Aisha O. Expression (B) Aisha - Social Cognition P. Social Interaction Aisha Q. Problem Solving Aisha R. Memory Aisha - Endurance Good - Balance Good - Safety Awareness Good QI SCORES: - Self-Care A. Eating 03-Partial/moderate assistance B. Oral hygiene 03-Partial/moderate assistance C. Toileting hygiene 02-Substantial/maximal assistance E. Shower/bathe self 02-Substantial/maximal assistance F. Upper body dressing 03-Partial/moderate assistance G. Lower body dressing 03-Partial/moderate assistance H. Putting on/taking off footwear 88-Not attempted due to medical condition or safety concerns - Mobility A. Roll left and right 03-Partial/moderate assistance B. Sit to lying 03-Partial/moderate assistance C. Lying to sitting on side of bed 03-Partial/moderate assistance D. Sit to stand 04-Supervision or touching assistance E. Chair/kuv-[id number] transfer 04-Supervision or touching assistance F. Toilet transfer 02-Substantial/maximal assistance G. Car transfer 88-Not attempted due to medical condition or safety concerns I. Walk 10 feet 04-Supervision or touching assistance J. Walk 50 feet with two turns 04-Supervision or touching assistance K. Walk 150 feet 04-Supervision or touching assistance L. Walking 10 feet on uneven surfaces 88-Not attempted due to medical condition or safety concerns M. 1 step (curb) 88-Not attempted due to medical condition or safety concerns N. 4 steps 88-Not attempted due to medical condition or safety concerns O. 12 steps 88-Not attempted due to medical condition or safety concerns P. Picking up object 88-Not attempted due to medical condition or safety concerns R. Wheel 50 feet with two turns 88-Not attempted due to medical condition or safety concerns S. Wheel 150 feet 03-Partial/moderate assistance - Bladder and Bowel Bladder continence Bowel continence - Endurance Fair - Balance Fair - Safety Awareness Fair CURRENT [facility]. DEFICITS: Self-Care, Mobility, Endurance, Balance, and Safety Awareness SIGNATURE PANEL: (CDT)
[2020-03-04] MEDS: TRAZODONE 50 MG TABLET PO PRN (20:00)
[2020-03-04] MEDS: DOCUSATE NA/SENNA CONC 1 TAB PO PRN (20:00)
[2020-03-05] MEDS: CEPHALEXIN 500 MG CAP PO SCH ×3 (01:00→17:00)
[2020-03-05 06:20] LABS: Absolute Lymphocytes (CBC) 1.6 K/uL (0.7-4.9); Basophils % 1.3 % (0-1.3); Hematocrit 34.8 % (39.6-49.0); Lymphocytes % 18.5 % (15.3-44.8); MPV 7.4 fL (7.6-11.3); RBC Red Blood Cell Count 3.54 M/uL (4.33-5.43)
[2020-03-05 06:40] LABS: Albumin 2.9 g/dL (3.4-5.0); Potassium 4.3 mmol/L (3.5-5.1); Prealbumin 20.4 mg/dL (20-40)
[2020-03-05] MEDS: PROMOD 30 ML DOSE PO SCH ×2 (08:22→19:19)
[2020-03-05] MEDS: predniSONE 5 MG TAB PO SCH ×2 (08:22→19:18)
[2020-03-05] MEDS: MEMANTINE HCL 10 MG TABLET PO SCH (08:22)
[2020-03-05] MEDS: LOSARTAN POTASSIUM 50 MG TABLET PO SCH (08:22)
[2020-03-05] MEDS: TAMSULOSIN 0.4 MG SR CAP PO SCH (08:22)
[2020-03-05] MEDS: ENOXAPARIN 40 MG/0.4 ML SQ SCH (17:09)
--- NOTE | 2020-03-05 17:24 | R.PN ---
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 Pt denied any depression. WBC 8.6, Hgb 11.7, prealbumin 20.4, UA is negative. Ambulated 1500' with standby assistance using a r olling walker. Up and down 15 steps with contact guard assistance. VITAL SIGNS Temperature: 98.4 F SBP/DBP: 136/67 Pulse: 77 Resp: 16 MEDICATION ALLERGIES: No Known Drug Allergies (NKDA) ENVIRONMENTAL ALLERGIES: - Substance Allergies None Known - Other Allergies None Known NURSING: - Shower allowing shower ACTIVITIES OOB only with supervision THERAPIES: - Dietary and Nutrition Adequate Nutrition. Nutritional Education. Nutritional Supplements. PHYSICAL EXAM - Gen Alert and awake Lying in bed No apparent distress Oriented to: person, time, and place - Skin No skin breakdown. No abnormalities - Eyes No abnormalities - ENMT No abnormalities - Neck No abnormalities - CVS RRR - Chest No abnormalities - Resp Clear to auscultation - Abd + bowel sounds - GI Non distended Deferred - No abnormalities - Ext No significant edema - MSK 4+/5 weakness in both lower extremities. - Neuro No focal deficits - Psych No abnormalities ASSESSMENT: Pt. is a 79 yo Right-handed male of unknown race.On 02/24/2020 he was admitted to [facility] with diagnosis HX OF PROSTATE CANCER W BONY METASTASIS IN THE LUMBOSACRAL.His impairment categor y is Medically Complex Conditions 17 - Neoplasms (17.2).Pre-morbidly, Pt. was independent/mod-I in L ocomotion, Safety Awareness, Social Cognition, Transfers Control, and Communication; and he had good Sphincter Control, Self-Care, and Endurance.Currently, he has deficits of Locomotion, Safety Awarenes s, Social Cognition, Sphincter Control, Communication, and Endurance.Pt. is now referred to [facility] for acute in-patient rehabilitation in order to maximize patient's functiona l independence in activities of daily living, strength, ROM, and mobility.- Rehab Goal Patient has realistic goal of being discharged at assistance level 7-Ind to reside at Home with Pt s elf. MDM/PLAN: - Physical Therapy Gait dysfunction - to improve, our physical therapists will perform initial evaluation of pt's statu s upon admission and devise an individualized program for Gait Training, and Wheel Chair mobility Need for home safety evaluation - to improve, our physical therapists will perform initial evaluatio n of pt's status upon admission and devise an individualized program for Home Evaluation Need in caregiver upon discharge - to improve, our physical therapists will perform initial evaluati on of pt's status upon admission and devise an individualized program for Caregiver Training New precaution - to improve, our physical therapists will perform initial evaluation of pt's status upon admission and devise an individualized program for Patient precaution education Edema - to improve, our physical therapists will perform initial evaluation of pt's status upon admi ssion and devise an individualized program for Elevation Training, and Lymphedema Therapy Poor endurance - to improve, our physical therapists will perform initial evaluation of pt's status upon admission and devise an individualized program for Endurance Training Weakness - to improve, our physical therapists will perform initial evaluation of pt's status upon a dmission and devise an individualized program for Aquatic Therapy, Neuromuscular Reeducation, and Str engthening Achieving independence - to improve, our physical therapists will perform initial evaluation of pt's status upon admission and devise an individualized program for Community Reintegration Activities - Occupational Therapy Cognitive deficits - to improve, our occupation therapists will perform initial evaluation of pt's s tatus upon admission and devise an individualized program for Cognition - orientation Need for skin care therapist - to improve, our occupation therapists will perform initial evaluation of pt's status upon admission and devise an individualized program for Caregiver Training Weakness - to improve, our occupation therapists will perform initial evaluation of pt's status upon admission and devise an individualized program for Aquatic Therapy, Balance, Endurance, UE ROM, and UE strengthening - Other See attached MAR (Medication Administration Record) - Diet Type Continue Regular - Diet - Liquid Texture Continue Regular - Tube Feed Continue N/A - Diet - Solid Texture Continue Regular - Shower allowing shower FUNCTIONAL STATUS: UPDATED AT WEEKLY TEAM CONFERENCE - Bladder Same accident frequency: 7-Ind - No accidents in the past 7 days - Bowel Same accident frequency: 7-Ind - No accidents in the past 7 days - Walking Same score based on distance walked: 0(N/A) Same score based on distance walked: 3(>=150ft) - Wheelchair Same score based on distance traveled: 0(N/A) FUNCTIONAL STATUS: - Self-Care A. Eating Ind B. Grooming Aisha C. Bathing Shanon D. Dressing - Upper sup E. Dressing - Lower Shanon F. Toileting Aisha - Sphincter Control G. Bladder control sup H. Bowel control sup - Transfers Control I. Bed/Chair/Wheelchair sup J. Toilet sup K. Tub/Shower Shanon - Locomotion L. Walk/Wheelchair (B) Aisha M. Stairs sup - Communication N. Comprehension (B) Aisha O. Expression (B) Aisha - Social Cognition P. Social Interaction Aisha Q. Problem Solving Aisha R. Memory Aisha - Endurance Good - Balance Good - Safety Awareness Good QI SCORES: - Self-Care A. Eating 03-Partial/moderate assistance B. Oral hygiene 03-Partial/moderate assistance C. Toileting hygiene 02-Substantial/maximal assistance E. Shower/bathe self 02-Substantial/maximal assistance F. Upper body dressing 03-Partial/moderate assistance G. Lower body dressing 03-Partial/moderate assistance H. Putting on/taking off footwear 88-Not attempted due to medical condition or safety concerns - Mobility A. Roll left and right 03-Partial/moderate assistance B. Sit to lying 03-Partial/moderate assistance C. Lying to sitting on side of bed 03-Partial/moderate assistance D. Sit to stand 04-Supervision or touching assistance E. Chair/fmb-ga-[id number] transfer 04-Supervision or touching assistance F. Toilet transfer 02-Substantial/maximal assistance G. Car transfer 88-Not attempted due to medical condition or safety concerns I. Walk 10 feet 04-Supervision or touching assistance J. Walk 50 feet with two turns 04-Supervision or touching assistance K. Walk 150 feet 04-Supervision or touching assistance L. Walking 10 feet on uneven surfaces 88-Not attempted due to medical condition or safety concerns M. 1 step (curb) 88-Not attempted due to medical condition or safety concerns N. 4 steps 88-Not attempted due to medical condition or safety concerns O. 12 steps 88-Not attempted due to medical condition or safety concerns P. Picking up object 88-Not attempted due to medical condition or safety concerns R. Wheel 50 feet with two turns 88-Not attempted due to medical condition or safety concerns S. Wheel 150 feet 03-Partial/moderate assistance - Bladder and Bowel Bladder continence Bowel continence - Endurance Fair - Balance Fair - Safety Awareness Fair CURRENT [facility]. DEFICITS: Self-Care, Mobility, Endurance, Balance, and Safety Awareness SIGNATURE PANEL: (CDT)
[2020-03-05] MEDS: ACETAMINOPHEN 500 MG TAB PO PRN (19:18)
[2020-03-05] MEDS: DOCUSATE NA/SENNA CONC 1 TAB PO PRN (19:19)
[2020-03-05] MEDS: TRAZODONE 50 MG TABLET PO PRN (20:05)
[2020-03-05] MEDS: MELATONIN 3 MG TABLET PO PRN (20:06)
[2020-03-06] MEDS: CEPHALEXIN 500 MG CAP PO SCH ×3 (01:00→17:03)
[2020-03-06] MEDS: ACETAMINOPHEN 500 MG TAB PO PRN (08:00)
[2020-03-06] MEDS: LOSARTAN POTASSIUM 50 MG TABLET PO SCH (08:01)
[2020-03-06] MEDS: MEMANTINE HCL 10 MG TABLET PO SCH (08:01)
[2020-03-06] MEDS: TAMSULOSIN 0.4 MG SR CAP PO SCH (08:01)
[2020-03-06] MEDS: predniSONE 5 MG TAB PO SCH ×2 (08:01→19:48)
[2020-03-06] MEDS: PROMOD 30 ML DOSE PO SCH ×2 (08:02→19:49)
--- NOTE | 2020-03-06 09:39 | P.RH.PN ---
Estimated Length of Stay: 11 Expected Discharge Date: 03/12/20 Discharge Disposition Plan: Home Family Support: Yes Vital Signs: Last Vital Signs Temp 96.9 F 03/06/20 07:19 Pulse 84 03/06/20 07:19 Resp 14 03/06/20 07:19 BP 159/80 H 03/06/20 07:19 Pulse Ox 99 03/06/20 07:19 Laboratory: Laboratory Last Values WBC 8.6 K/uL (4.3-10.9) 03/05/20 06:04 RBC 3.54 M/uL (4.33-5.43) L 03/05/20 06:04 Hgb 11.7 g/dL (13.6-17.9) L 03/05/20 06:04 Hct 34.8 % (39.6-49.0) L 03/05/20 06:04 MCV 98.2 fL (80-100) 03/05/20 06:04 MCH 32.9 pg (27.0-35.0) 03/05/20 06:04 MCHC 33.5 g/dL (32.0-36.0) 03/05/20 06:04 RDW 14.4 % (12.1-15.2) 03/05/20 06:04 Plt Count 226 K/uL (152-406) 03/05/20 06:04 MPV 7.4 fL (7.6-11.3) L 03/05/20 06:04 Neutrophils % 75.3 % (41.7-73.7) H 03/05/20 06:04 Lymphocytes % 18.5 % (15.3-44.8) 03/05/20 06:04 Monocytes % 4.0 % (3.3-12.3) 03/05/20 06:04 Eosinophils % 0.9 % (0-4.4) 03/05/20 06:04 Basophils % 1.3 % (0-1.3) 03/05/20 06:04 Absolute Neutrophils 6.5 K/uL (1.8-8.0) 03/05/20 06:04 Absolute Lymphocytes 1.6 K/uL (0.7-4.9) 03/05/20 06:04 Absolute Monocytes 0.3 K/uL (0.1-1.3) 03/05/20 06:04 Absolute Eosinophils 0.1 K/uL (0-0.5) 03/05/20 06:04 Absolute Basophils 0.1 K/uL (0-0.5) 03/05/20 06:04 Sodium 141 mmol/L (136-145) 03/05/20 06:04 Potassium 4.3 mmol/L (3.5-5.1) 03/05/20 06:04 Chloride 107 mmol/L (98-107) 03/05/20 06:04 Carbon Dioxide 30 mmol/L (21-32) 03/05/20 06:04 BUN 25 mg/dL (7-18) H 03/05/20 06:04 Creatinine 1.01 mg/dL (0.55-1.3) 03/05/20 06:04 Estimated GFR 71 mL/min (=/>90) L 03/05/20 06:04 Glucose 93 mg/dL (74-106) 03/05/20 06:04 Calcium 9.2 mg/dL (8.5-10.1) 03/05/20 06:04 Magnesium 2.4 mg/dL (1.8-2.4) 03/03/20 05:31 Albumin 2.9 g/dL (3.4-5.0) L 03/05/20 06:04 Prealbumin 20.4 mg/dL (20-40) 03/05/20 06:04 Urine Color Yellow 03/02/20 15:30 Urine Appearance Clear 03/02/20 15:30 Urine pH 7.0 (5.0-7.0) 03/02/20 15:30 Ur Specific [place] 1.010 (1.005-1.030) 03/02/20 15:30 Glucose (UA)(Auto) Negative (NEG) 03/02/20 15:30 Urine Ketones Negative (NEG) 03/02/20 15:30 Urine Blood Negative (NEG) 03/02/20 15:30 Urine Nitrite Negative (NEG) 03/02/20 15:30 Urine Bilirubin Negative (NEG) 03/02/20 15:30 Urine Urobilinogen 0.2 mg/dL (0.2-1.0) 03/02/20 15:30 Ur Leukocyte Esterase Negative (NEG) 03/02/20 15:30 Urine RBC <5 /HPF (NONE SEEN) 03/02/20 15:30 Urine WBC <5 /HPF (<5) 03/02/20 15:30 Ur Squamous Epith Cells <5 /HPF (NONE SEEN) 03/02/20 15:30 Urine Bacteria <20 /HPF (NONE SEEN) 03/02/20 15:30 Urine Culture Reflexed Not needed 03/02/20 15:30 Urine Total Protein Negative (NEG) 03/02/20 15:30 Weight: 197 lb Wound Present: No Closed Surgical Incision Present: No Negative Pressure Wound Therapy Present: No Physician Update: Labs reviewed and are stable. He is doing fairly well with standby assistance with ambulation walking 250' total with the rolling walker. He lives on his own and may require help at home. His memory fluctuates and will likely require someone to help with reminders and ADLs at home. 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 Please see the Rehabilitation Signature page for all necessary signatures.
[2020-03-06] MEDS: ENOXAPARIN 40 MG/0.4 ML SQ SCH (17:03)
[2020-03-06] MEDS: DOCUSATE NA/SENNA CONC 1 TAB PO PRN (19:48)
[2020-03-06] MEDS: TRAZODONE 50 MG TABLET PO PRN (19:48)
[2020-03-06] MEDS: MELATONIN 3 MG TABLET PO PRN (20:08)
[2020-03-07] MEDS: CEPHALEXIN 500 MG CAP PO SCH ×3 (00:07→16:46)
[2020-03-07] MEDS: HYDROCODONE/APAP 5/325 MG TAB PO PRN ×3 (00:07→20:08)
[2020-03-07 05:40] VITALS: BMI 29.5
[2020-03-07] MEDS: PROMOD 30 ML DOSE PO SCH ×2 (08:00→20:09)
[2020-03-07] MEDS: predniSONE 5 MG TAB PO SCH ×2 (08:19→20:09)
[2020-03-07] MEDS: TAMSULOSIN 0.4 MG SR CAP PO SCH (08:19)
[2020-03-07] MEDS: MEMANTINE HCL 10 MG TABLET PO SCH (08:19)
[2020-03-07] MEDS: LOSARTAN POTASSIUM 50 MG TABLET PO SCH (12:10)
--- NOTE | 2020-03-07 14:45 | FAST ---
[employer] FORM SHIFT START DATE/TIME: 03/07/2020 07:00 (CDT) SHIFT END DATE/TIME: 03/07/2020 19:00 (CDT) NAME JACINDA ESQUEDA DATE OF : 1940 DATE OF ADMISSION: 03/02/2020 13:02 (CDT) PHONE: AGE: 79 N# [id number] GENDER: Male ENCOUNTER PHYSICIAN: Dr. Benedict Alvarez M.D. 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 EATING: EATING - STEP 1: Does the patient complete the activity by him/herself with no assistance (physical, verbal/nonverbal cueing, setup/clean-up)? No. EATING - STEP 2: Does the patient need only setup/clean-up assistance from one helper? Yes. 1. [id number] ADMISSION PERFORMANCE: Setup or clean-up assistance CODE: 05 ORAL HYGIENE: ORAL HYGIENE - STEP 1: Does the patient complete the activity by him/herself with no assistance (physical, verbal/nonverbal cueing, setup/clean-up)? No. ORAL HYGIENE - STEP 2: Does the patient need only setup/clean-up assistance from one helper? Yes. 1. [id number] ADMISSION PERFORMANCE: Setup or clean-up assistance CODE: 05 TOILETING HYGIENE: TOILETING HYGIENE - STEP 1: Does the patient complete the activity by him/herself with no assistance (physical, verbal/nonverbal cueing, setup/clean-up)? No. TOILETING HYGIENE - STEP 2: Does the patient need only setup/clean-up assistance from one helper? Yes. 1. [id number] ADMISSION PERFORMANCE: Setup or clean-up assistance CODE: 05 BATHING: Not assessed/no information CODE: - DRESSING - UPPER BODY: DRESSING - UPPER BODY - STEP 1: Does the patient complete the activity by him/herself with no assistance (physical, verbal/nonverbal cueing, setup/clean-up)? No. DRESSING - UPPER BODY - STEP 2: Does the patient need only setup/clean-up assistance from one helper? Yes. 1. [id number] ADMISSION PERFORMANCE: Setup or clean-up assistance CODE: 05 DRESSING - LOWER BODY: DRESSING - LOWER BODY - STEP 1: Does the patient complete the activity by him/herself with no assistance (physical, verbal/nonverbal cueing, setup/clean-up)? No. DRESSING - LOWER BODY - STEP 2: Does the patient need only setup/clean-up assistance from one helper? No. DRESSING - LOWER BODY - STEP 3: Does the patient need only verbal/nonverbal cueing or touching/steadying/contact guard assistance fro m one helper? Yes. 1. [id number] ADMISSION PERFORMANCE: Supervision or touching assistance CODE: 04 PUTTING ON/TAKING OFF FOOTWEAR: FOOTWEAR - STEP 1: Does the patient complete the activity by him/herself with no assistance (physical, verbal/nonverbal cueing, setup/clean-up)? No. FOOTWEAR - STEP 2: Does the patient need only setup/clean-up assistance from one helper? No. FOOTWEAR - STEP 3: Does the patient need only verbal/nonverbal cueing or touching/steadying/contact guard assistance fro m one helper? Yes. 1. [id number] ADMISSION PERFORMANCE: Supervision or touching assistance CODE: 04 ROLL LEFT AND RIGHT: ROLL LEFT AND RIGHT - STEP 1: Does the patient complete the activity by him/herself with no assistance (physical, verbal/nonverbal cueing, setup/clean-up)? No. ROLL LEFT AND RIGHT - STEP 2: Does the patient need only setup/clean-up assistance from one helper? Yes. 1. [id number] ADMISSION PERFORMANCE: Setup or clean-up assistance CODE: 05 SIT TO LYING: SIT TO LYING - STEP 1: Does the patient complete the activity by him/herself with no assistance (physical, verbal/nonverbal cueing, setup/clean-up)? No. SIT TO LYING - STEP 2: Does the patient need only setup/clean-up assistance from one helper? Yes. 1. [id number] ADMISSION PERFORMANCE: Setup or clean-up assistance CODE: 05 LYING TO SITTING: LYING TO SITTING ON SIDE OF BED - STEP 1: Does the patient complete the activity by him/herself with no assistance (physical, verbal/nonverbal cueing, setup/clean-up)? No. LYING TO SITTING ON SIDE OF BED - STEP 2: Does the patient need only setup/clean-up assistance from one helper? Yes. 1. [id number] ADMISSION PERFORMANCE: Setup or clean-up assistance CODE: 05 SIT TO STAND: SIT TO STAND - STEP 1: Does the patient complete the activity by him/herself with no assistance (physical, verbal/nonverbal cueing, setup/clean-up)? No. SIT TO STAND - STEP 2: Does the patient need only setup/clean-up assistance from one helper? Yes. 1. [id number] ADMISSION PERFORMANCE: Setup or clean-up assistance CODE: 05 TRANSFERS: BED, CHAIR: CHAIR/[id number] TRANSFER - STEP 1: Does the patient complete the activity by him/herself with no assistance (physical, verbal/nonverbal cueing, setup/clean-up)? No. CHAIR/[id number] TRANSFER - STEP 2: Does the patient need only setup/clean-up assistance from one helper? Yes. 1. [id number] ADMISSION PERFORMANCE: Setup or clean-up assistance CODE: 05 TRANSFER TOILET: TOILET TRANSFER - STEP 1: Does the patient complete the activity by him/herself with no assistance (physical, verbal/nonverbal cueing, setup/clean-up)? No. TOILET TRANSFER - STEP 2: Does the patient need only setup/clean-up assistance from one helper? Yes. 1. [id number] ADMISSION PERFORMANCE: Setup or clean-up assistance CODE: 05 TRANSFERS: CAR: Not assessed/no information CODE: - WALK 10 FEET: Not assessed/no information CODE: - 1 STEP (CURB): Not assessed/no information CODE: - PICKING UP OBJECT: Not assessed/no information CODE: - DOES THE PATIENT USE A WHEELCHAIR/SCOOTER? Q1. DOES THE PATIENT USE A WHEELCHAIR/SCOOTER?: No CODE: 0 INDICATE THE TYPE OF WHEELCHAIR/SCOOTER USED: CODE: EXPR INDICATE THE TYPE OF WHEELCHAIR/SCOOTER USED: CODE: EXPR BLADDER AND BOWEL: H350. BLADDER CONTINENCE (3-DAY ASSESSMENT PERIOD): Always continent (no documented incontinence) CODE: 0 H400. BOWEL CONTINENCE (3-DAY ASSESSMENT PERIOD): Always continent CODE: 0 SIGNATURE PANEL: The following modified sections: 1. [id number] Admission Performance, 1. [id number] Admission Performance, 1. [id number] Admission Performance, 1. [id number] Admission Performance, 1. [id number] Admission Performance, 1. [id number] Admission Performance, 1. [id number] Admission Performance, 1. [id number] Admission Performance , 1. [id number] Admission Performance, 1. [id number] Admission Performance, 1. [id number] Admission Performanc e, 1. [id number] Admission Performance, 1. [id number] Admission Performance, 1. [id number] Admission Performan ce, Q1. Does the patient use a wheelchair/scooter?, H350. Bladder Continence (3-day assessment period ), H400. Bowel Continence (3-day assessment period) were [electronically] signed by Julito HinsonN Justice on Sat Mar 07 2020 14:43:34 GMT-0500 (Central Daylight Time)
[2020-03-07] MEDS: ENOXAPARIN 40 MG/0.4 ML SQ SCH (16:24)
[2020-03-07] MEDS: TRAZODONE 50 MG TABLET PO PRN (20:09)
[2020-03-07] MEDS: MELATONIN 3 MG TABLET PO PRN (23:29)
[2020-03-08] MEDS: CEPHALEXIN 500 MG CAP PO SCH ×3 (00:57→17:31)
[2020-03-08] MEDS: HYDROCODONE/APAP 5/325 MG TAB PO PRN ×2 (01:46→21:43)
[2020-03-08] MEDS: LOSARTAN POTASSIUM 50 MG TABLET PO SCH (08:30)
[2020-03-08] MEDS: TAMSULOSIN 0.4 MG SR CAP PO SCH (08:31)
[2020-03-08] MEDS: predniSONE 5 MG TAB PO SCH ×2 (08:31→20:03)
[2020-03-08] MEDS: MEMANTINE HCL 10 MG TABLET PO SCH (08:32)
[2020-03-08] MEDS: PROMOD 30 ML DOSE PO SCH ×2 (10:02→20:03)
[2020-03-08] MEDS ORDERED: MAGNESIUM HYDROXIDE 8% 30 ML PO PRN (10:44)
[2020-03-08] MEDS ORDERED: FLEET ENEMA ADULT PR PRN (10:44)
[2020-03-08] MEDS ORDERED: FORMULATION-R RECTAL 30GM PR PRN (10:52)
[2020-03-08] MEDS: ENOXAPARIN 40 MG/0.4 ML SQ SCH (17:31)
[2020-03-08] MEDS: ACETAMINOPHEN 500 MG TAB PO PRN (18:10)
[2020-03-08] MEDS ORDERED: ZINC OXIDE 20% OINTMENT 60gm TOP SCH (20:00)
[2020-03-08] MEDS: DOCUSATE NA/SENNA CONC 1 TAB PO PRN (20:03)
[2020-03-08] MEDS: TRAZODONE 50 MG TABLET PO PRN (20:03)
[2020-03-08] MEDS: MELATONIN 3 MG TABLET PO PRN (21:44)
[2020-03-09] MEDS: CEPHALEXIN 500 MG CAP PO SCH ×3 (00:03→16:45)
[2020-03-09] MEDS: predniSONE 5 MG TAB PO SCH ×2 (07:43→20:32)
[2020-03-09] MEDS: LOSARTAN POTASSIUM 50 MG TABLET PO SCH (07:43)
[2020-03-09] MEDS: MEMANTINE HCL 10 MG TABLET PO SCH (07:43)
[2020-03-09] MEDS: PROMOD 30 ML DOSE PO SCH ×2 (07:43→20:33)
[2020-03-09] MEDS: ACETAMINOPHEN 500 MG TAB PO PRN (07:44)
[2020-03-09] MEDS: TAMSULOSIN 0.4 MG SR CAP PO SCH (07:44)
[2020-03-09] MEDS: ENOXAPARIN 40 MG/0.4 ML SQ SCH (16:45)
--- NOTE | 2020-03-09 17:58 | R.PN ---
PROGRESS NOTES ENCOUNTER DATE AND TIME: 03/09/2020 17:54 (CDT) NAME JACINDA ESQUEDA DATE OF : 1940 DATE OF ADMISSION: 03/02/2020 13:02 (CDT) HX OF PROSTATE CANCER W BONY METASTASIS IN THE LUMBOSACRALCHIEF COMPLAINT: Debility and metastatic prostate cancer SUBJECTIVE: Pt denied any Shortness of Breath. Pt denied any depression. WBC 8.6, Hgb 11.7, prealbumin 20.4, UA is negative. Ambulated 500' with standby assistance using a [employer] walker. Up and down 15 steps with standby assistance. PSA is very elevated at 28.6, 7 times normal. VITAL SIGNS Temperature: 97.1 F SBP/DBP: 131/64 Pulse: 73 Resp: 15 MEDICATION ALLERGIES: No Known Drug Allergies (NKDA) ENVIRONMENTAL ALLERGIES: - Substance Allergies None Known - Other Allergies None Known NURSING: - Shower allowing shower ACTIVITIES OOB only with supervision THERAPIES: - Dietary and Nutrition Adequate Nutrition. Nutritional Education. Nutritional Supplements. PHYSICAL EXAM - Gen Alert and awake Lying in bed No apparent distress Oriented to: person, time, and place - Skin No skin breakdown. No abnormalities - Eyes No abnormalities - ENMT No abnormalities - Neck No abnormalities - CVS RRR - Chest No abnormalities - Resp Clear to auscultation - Abd + bowel sounds - GI Non distended Deferred - No abnormalities - Ext No significant edema - MSK 4+/5 weakness in both lower extremities. - Neuro No focal deficits - Psych No abnormalities ASSESSMENT: Pt. 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 was independent/mod-I in L ocomotion, Safety Awareness, Social Cognition, Transfers Control, and Communication; and he had good Sphincter Control, Self-Care, and Endurance.Currently, he has deficits of Locomotion, Safety Awarenes s, Social Cognition, Sphincter Control, Communication, and Endurance.Pt. is now referred to [facility] for acute in-patient rehabilitation in order to maximize patient's functiona l independence in activities of daily living, strength, ROM, and mobility.- Rehab Goal Patient has realistic goal of being discharged at assistance level 7-Ind to reside at Home with Pt s elf. MDM/PLAN: - Physical Therapy Gait dysfunction - to improve, our physical therapists will perform initial evaluation of pt's statu s upon admission and devise an individualized program for Gait Training, and Wheel Chair mobility Need for home safety evaluation - to improve, our physical therapists will perform initial evaluatio n of pt's status upon admission and devise an individualized program for Home Evaluation Need in caregiver upon discharge - to improve, our physical therapists will perform initial evaluati on of pt's status upon admission and devise an individualized program for Caregiver Training New precaution - to improve, our physical therapists will perform initial evaluation of pt's status upon admission and devise an individualized program for Patient precaution education Edema - to improve, our physical therapists will perform initial evaluation of pt's status upon admi ssion and devise an individualized program for Elevation Training, and Lymphedema Therapy Poor endurance - to improve, our physical therapists will perform initial evaluation of pt's status upon admission and devise an individualized program for Endurance Training Weakness - to improve, our physical therapists will perform initial evaluation of pt's status upon a dmission and devise an individualized program for Aquatic Therapy, Neuromuscular Reeducation, and Str engthening Achieving independence - to improve, our physical therapists will perform initial evaluation of pt's status upon admission and devise an individualized program for Community Reintegration Activities - Occupational Therapy Cognitive deficits - to improve, our occupation therapists will perform initial evaluation of pt's s tatus upon admission and devise an individualized program for Cognition - orientation Need for wound care technician - to improve, our occupation therapists will perform initial evaluation of pt's status upon admission and devise an individualized program for Caregiver Training Weakness - to improve, our occupation therapists will perform initial evaluation of pt's status upon admission and devise an individualized program for Aquatic Therapy, Balance, Endurance, UE ROM, and UE strengthening - Other See attached MAR (Medication Administration Record) - Diet Type Continue Regular - Diet - Liquid Texture Continue Regular - Tube Feed Continue N/A - Diet - Solid Texture Continue Regular - Shower allowing shower FUNCTIONAL STATUS: UPDATED AT WEEKLY TEAM CONFERENCE - Bladder Same accident frequency: 7-Ind - No accidents in the past 7 days - Bowel Same accident frequency: 7-Ind - No accidents in the past 7 days - Walking Same score based on distance walked: 0(N/A) Same score based on distance walked: 3(>=150ft) - Wheelchair Same score based on distance traveled: 0(N/A) FUNCTIONAL STATUS: - Self-Care A. Eating Ind B. Grooming Aisha C. Bathing Shanon D. Dressing - Upper sup E. Dressing - Lower Shanon F. Toileting Aisha - Sphincter Control G. Bladder control sup H. Bowel control sup - Transfers Control I. Bed/Chair/Wheelchair sup J. Toilet sup K. Tub/Shower Shanon - Locomotion L. Walk/Wheelchair (B) Aisha M. Stairs sup - Communication N. Comprehension (B) Aisha O. Expression (B) Aisha - Social Cognition P. Social Interaction Aisha Q. Problem Solving Aisha R. Memory Aisha - Endurance Good - Balance Good - Safety Awareness Good QI SCORES: - Self-Care A. Eating 03-Partial/moderate assistance B. Oral hygiene 03-Partial/moderate assistance C. Toileting hygiene 02-Substantial/maximal assistance E. Shower/bathe self 02-Substantial/maximal assistance F. Upper body dressing 03-Partial/moderate assistance G. Lower body dressing 03-Partial/moderate assistance H. Putting on/taking off footwear 88-Not attempted due to medical condition or safety concerns - Mobility A. Roll left and right 03-Partial/moderate assistance B. Sit to lying 03-Partial/moderate assistance C. Lying to sitting on side of bed 03-Partial/moderate assistance D. Sit to stand 04-Supervision or touching assistance E. Chair/vyc-sk-nvxgi transfer 04-Supervision or touching assistance F. Toilet transfer 02-Substantial/maximal assistance G. Car transfer 88-Not attempted due to medical condition or safety concerns I. Walk 10 feet 04-Supervision or touching assistance J. Walk 50 feet with two turns 04-Supervision or touching assistance K. Walk 150 feet 04-Supervision or touching assistance L. Walking 10 feet on uneven surfaces 88-Not attempted due to medical condition or safety concerns M. 1 step (curb) 88-Not attempted due to medical condition or safety concerns N. 4 steps 88-Not attempted due to medical condition or safety concerns O. 12 steps 88-Not attempted due to medical condition or safety concerns P. Picking up object 88-Not attempted due to medical condition or safety concerns R. Wheel 50 feet with two turns 88-Not attempted due to medical condition or safety concerns S. Wheel 150 feet 03-Partial/moderate assistance - Bladder and Bowel Bladder continence Bowel continence - Endurance Fair - Balance Fair - Safety Awareness Fair CURRENT [facility]. DEFICITS: Self-Care, Mobility, Endurance, Balance, and Safety Awareness SIGNATURE PANEL: (CDT)
[2020-03-09] MEDS: DOCUSATE NA/SENNA CONC 1 TAB PO PRN (20:32)
[2020-03-09] MEDS: HYDROCODONE/APAP 5/325 MG TAB PO PRN (20:36)
[2020-03-09] MEDS: TRAZODONE 50 MG TABLET PO PRN (20:36)
[2020-03-10] MEDS: CEPHALEXIN 500 MG CAP PO SCH ×3 (00:24→16:20)
[2020-03-10] MEDS: MELATONIN 3 MG TABLET PO PRN ×2 (00:24→20:13)
[2020-03-10] MEDS: HYDROCODONE/APAP 5/325 MG TAB PO PRN ×2 (00:25→23:06)
[2020-03-10] MEDS: PROMOD 30 ML DOSE PO SCH ×2 (07:45→20:13)
[2020-03-10] MEDS: ACETAMINOPHEN 500 MG TAB PO PRN ×2 (07:45→14:53)
[2020-03-10] MEDS: MEMANTINE HCL 10 MG TABLET PO SCH (07:46)
[2020-03-10] MEDS: TAMSULOSIN 0.4 MG SR CAP PO SCH (07:46)
[2020-03-10] MEDS: LOSARTAN POTASSIUM 50 MG TABLET PO SCH (07:46)
[2020-03-10] MEDS: predniSONE 5 MG TAB PO SCH ×2 (07:46→20:13)
[2020-03-10] MEDS: ENOXAPARIN 40 MG/0.4 ML SQ SCH (16:20)
--- NOTE | 2020-03-10 16:24 | R.PN ---
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 Pt denied any depression. WBC 8.6, Hgb 11.7, prealbumin 20.4, UA is negative. Ambulated 500' with independence sing a rolling w alker. Up and down 15 steps with standby assistance. PSA is very elevated at 28.6, 7 times normal. VITAL SIGNS Temperature: 97.2 F SBP/DBP: 128/59 Pulse: 71 Resp: 16 MEDICATION ALLERGIES: No Known Drug Allergies (NKDA) ENVIRONMENTAL ALLERGIES: - Substance Allergies None Known - Other Allergies None Known NURSING: - Shower allowing shower ACTIVITIES OOB only with supervision THERAPIES: - Dietary and Nutrition Adequate Nutrition. Nutritional Education. Nutritional Supplements. PHYSICAL EXAM - Gen Alert and awake Lying in bed No apparent distress Oriented to: person, time, and place - Skin No skin breakdown. No abnormalities - Eyes No abnormalities - ENMT No abnormalities - Neck No abnormalities - CVS RRR - Chest No abnormalities - Resp Clear to auscultation - Abd + bowel sounds - GI Non distended Deferred - No abnormalities - Ext No significant edema - MSK 4+/5 weakness in both lower extremities. - Neuro No focal deficits - Psych No abnormalities ASSESSMENT: Pt. 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 was independent/mod-I in L ocomotion, Safety Awareness, Social Cognition, Transfers Control, and Communication; and he had good Sphincter Control, Self-Care, and Endurance.Currently, he has deficits of Locomotion, Safety Awarenes s, Social Cognition, Sphincter Control, Communication, and Endurance.Pt. is now referred to [facility] for acute in-patient rehabilitation in order to maximize patient's functiona l independence in activities of daily living, strength, ROM, and mobility.- Rehab Goal Patient has realistic goal of being discharged at assistance level 7-Ind to reside at Home with Pt s elf. MDM/PLAN: - Physical Therapy Gait dysfunction - to improve, our physical therapists will perform initial evaluation of pt's statu s upon admission and devise an individualized program for Gait Training, and Wheel Chair mobility Need for home safety evaluation - to improve, our physical therapists will perform initial evaluatio n of pt's status upon admission and devise an individualized program for Home Evaluation Need in caregiver upon discharge - to improve, our physical therapists will perform initial evaluati on of pt's status upon admission and devise an individualized program for Caregiver Training New precaution - to improve, our physical therapists will perform initial evaluation of pt's status upon admission and devise an individualized program for Patient precaution education Edema - to improve, our physical therapists will perform initial evaluation of pt's status upon admi ssion and devise an individualized program for Elevation Training, and Lymphedema Therapy Poor endurance - to improve, our physical therapists will perform initial evaluation of pt's status upon admission and devise an individualized program for Endurance Training Weakness - to improve, our physical therapists will perform initial evaluation of pt's status upon a dmission and devise an individualized program for Aquatic Therapy, Neuromuscular Reeducation, and Str engthening Achieving independence - to improve, our physical therapists will perform initial evaluation of pt's status upon admission and devise an individualized program for Community Reintegration Activities - Occupational Therapy Cognitive deficits - to improve, our occupation therapists will perform initial evaluation of pt's s tatus upon admission and devise an individualized program for Cognition - orientation Need for health care assistant - to improve, our occupation therapists will perform initial evaluation of pt's status upon admission and devise an individualized program for Caregiver Training Weakness - to improve, our occupation therapists will perform initial evaluation of pt's status upon admission and devise an individualized program for Aquatic Therapy, Balance, Endurance, UE ROM, and UE strengthening - Other See attached MAR (Medication Administration Record) - Diet Type Continue Regular - Diet - Liquid Texture Continue Regular - Tube Feed Continue N/A - Diet - Solid Texture Continue Regular - Shower allowing shower FUNCTIONAL STATUS: UPDATED AT WEEKLY TEAM CONFERENCE - Bladder Same accident frequency: 7-Ind - No accidents in the past 7 days - Bowel Same accident frequency: 7-Ind - No accidents in the past 7 days - Walking Same score based on distance walked: 0(N/A) Same score based on distance walked: 3(>=150ft) - Wheelchair Same score based on distance traveled: 0(N/A) FUNCTIONAL STATUS: - Self-Care A. Eating Ind B. Grooming Aisha C. Bathing Shanon D. Dressing - Upper sup E. Dressing - Lower Shanon F. Toileting Aisha - Sphincter Control G. Bladder control sup H. Bowel control sup - Transfers Control I. Bed/Chair/Wheelchair sup J. Toilet sup K. Tub/Shower Shanon - Locomotion L. Walk/Wheelchair (B) Aisha M. Stairs sup - Communication N. Comprehension (B) Aisha O. Expression (B) Aisha - Social Cognition P. Social Interaction Aisha Q. Problem Solving Aisha R. Memory Aisha - Endurance Good - Balance Good - Safety Awareness Good QI SCORES: - Self-Care A. Eating 03-Partial/moderate assistance B. Oral hygiene 03-Partial/moderate assistance C. Toileting hygiene 02-Substantial/maximal assistance E. Shower/bathe self 02-Substantial/maximal assistance F. Upper body dressing 03-Partial/moderate assistance G. Lower body dressing 03-Partial/moderate assistance H. Putting on/taking off footwear 88-Not attempted due to medical condition or safety concerns - Mobility A. Roll left and right 03-Partial/moderate assistance B. Sit to lying 03-Partial/moderate assistance C. Lying to sitting on side of bed 03-Partial/moderate assistance D. Sit to stand 04-Supervision or touching assistance E. Chair/khq-mp-qhuez transfer 04-Supervision or touching assistance F. Toilet transfer 02-Substantial/maximal assistance G. Car transfer 88-Not attempted due to medical condition or safety concerns I. Walk 10 feet 04-Supervision or touching assistance J. Walk 50 feet with two turns 04-Supervision or touching assistance K. Walk 150 feet 04-Supervision or touching assistance L. Walking 10 feet on uneven surfaces 88-Not attempted due to medical condition or safety concerns M. 1 step (curb) 88-Not attempted due to medical condition or safety concerns N. 4 steps 88-Not attempted due to medical condition or safety concerns O. 12 steps 88-Not attempted due to medical condition or safety concerns P. Picking up object 88-Not attempted due to medical condition or safety concerns R. Wheel 50 feet with two turns 88-Not attempted due to medical condition or safety concerns S. Wheel 150 feet 03-Partial/moderate assistance - Bladder and Bowel Bladder continence Bowel continence - Endurance Fair - Balance Fair - Safety Awareness Fair CURRENT [facility]. DEFICITS: Self-Care, Mobility, Endurance, Balance, and Safety Awareness SIGNATURE PANEL: (CDT)
[2020-03-10] MEDS: TRAZODONE 50 MG TABLET PO PRN (20:13)
[2020-03-11] MEDS: CEPHALEXIN 500 MG CAP PO SCH ×3 (00:48→17:04)
[2020-03-11] MEDS: MEMANTINE HCL 10 MG TABLET PO SCH (08:11)
[2020-03-11] MEDS: predniSONE 5 MG TAB PO SCH ×2 (08:11→19:11)
[2020-03-11] MEDS: LOSARTAN POTASSIUM 50 MG TABLET PO SCH (08:11)
[2020-03-11] MEDS: TAMSULOSIN 0.4 MG SR CAP PO SCH (08:11)
[2020-03-11] MEDS: PROMOD 30 ML DOSE PO SCH ×2 (08:12→19:13)
--- NOTE | 2020-03-11 14:59 | FAST ---
OT QI REPORT FORM ENCOUNTER DATE AND TIME: 03/11/2020 08:00 (CDT) NAME JACINDA ESQUEDA DATE OF : 1940 DATE OF ADMISSION: 03/02/2020 13:02 (CDT) PHONE: AGE: 79 N# [id number] GENDER: Male ENCOUNTER PHYSICIAN: Dr. Benedict Alvarez M.D. 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 EATING: Not assessed/no information CODE: - ORAL HYGIENE: ORAL HYGIENE - STEP 1: Does the patient complete the activity by him/herself with no assistance (physical, verbal/nonverbal cueing, setup/clean-up)? Yes. 1. [id number] ADMISSION PERFORMANCE: Independent CODE: 06 TOILETING HYGIENE: TOILETING HYGIENE - STEP 1: Does the patient complete the activity by him/herself with no assistance (physical, verbal/nonverbal cueing, setup/clean-up)? No. TOILETING HYGIENE - STEP 2: Does the patient need only setup/clean-up assistance from one helper? No. TOILETING HYGIENE - STEP 3: Does the patient need only verbal/nonverbal cueing or touching/steadying/contact guard assistance fro m one helper? Yes. 1. [id number] ADMISSION PERFORMANCE: Supervision or touching assistance CODE: 04 BATHING: SHOWER/BATHE SELF - STEP 1: Does the patient complete the activity by him/herself with no assistance (physical, verbal/nonverbal cueing, setup/clean-up)? No. SHOWER/BATHE SELF - STEP 2: Does the patient need only setup/clean-up assistance from one helper? No. SHOWER/BATHE SELF - STEP 3: Does the patient need only verbal/nonverbal cueing or touching/steadying/contact guard assistance fro m one helper? Yes. 1. [id number] ADMISSION PERFORMANCE: Supervision or touching assistance CODE: 04 DRESSING - UPPER BODY: DRESSING - UPPER BODY - STEP 1: Does the patient complete the activity by him/herself with no assistance (physical, verbal/nonverbal cueing, setup/clean-up)? Yes. 1. [id number] ADMISSION PERFORMANCE: Independent CODE: 06 DRESSING - LOWER BODY: DRESSING - LOWER BODY - STEP 1: Does the patient complete the activity by him/herself with no assistance (physical, verbal/nonverbal cueing, setup/clean-up)? No. DRESSING - LOWER BODY - STEP 2: Does the patient need only setup/clean-up assistance from one helper? No. DRESSING - LOWER BODY - STEP 3: Does the patient need only verbal/nonverbal cueing or touching/steadying/contact guard assistance fro m one helper? Yes. 1. [id number] ADMISSION PERFORMANCE: Supervision or touching assistance CODE: 04 PUTTING ON/TAKING OFF FOOTWEAR: FOOTWEAR - STEP 1: Does the patient complete the activity by him/herself with no assistance (physical, verbal/nonverbal cueing, setup/clean-up)? No. FOOTWEAR - STEP 2: Does the patient need only setup/clean-up assistance from one helper? No. FOOTWEAR - STEP 3: Does the patient need only verbal/nonverbal cueing or touching/steadying/contact guard assistance fro m one helper? Yes. 1. [id number] ADMISSION PERFORMANCE: Supervision or touching assistance CODE: 04 DOES THE PATIENT USE A WHEELCHAIR/SCOOTER? CODE: EXPR INDICATE THE TYPE OF WHEELCHAIR/SCOOTER USED: CODE: EXPR INDICATE THE TYPE OF WHEELCHAIR/SCOOTER USED: CODE: EXPR BLADDER AND BOWEL: CODE: EXPR CODE: EXPR SIGNATURE PANEL: The following modified sections: 1. [id number] Admission Performance, 1. [id number] Admission Performance, 1. [id number] Admission Performance, 1. EF8261d Admission Performance, 1. FO2920o Admission Performance, 1. [id number] Admission Performance, 1. BD3783v Admission Performance were [electronically] signed by HOLLAND Hein on MonMar 11 2020 14:58:43 GMT-0500 (Central Daylight Time)
--- NOTE | 2020-03-11 16:42 | FAST ---
[employer] FORM SHIFT START DATE/TIME: 03/11/2020 07:00 (CDT) SHIFT END DATE/TIME: 03/11/2020 19:00 (CDT) NAME JACINDA ESQUEDA DATE OF : 1940 DATE OF ADMISSION: 03/02/2020 13:02 (CDT) PHONE: AGE: 79 N# [id number] GENDER: Male ENCOUNTER PHYSICIAN: Dr. Benedict Alvarez M.D. 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 EATING: EATING - STEP 1: Does the patient complete the activity by him/herself with no assistance (physical, verbal/nonverbal cueing, setup/clean-up)? No. EATING - STEP 2: Does the patient need only setup/clean-up assistance from one helper? Yes. 1. [id number] ADMISSION PERFORMANCE: Setup or clean-up assistance CODE: 05 ORAL HYGIENE: ORAL HYGIENE - STEP 1: Does the patient complete the activity by him/herself with no assistance (physical, verbal/nonverbal cueing, setup/clean-up)? No. ORAL HYGIENE - STEP 2: Does the patient need only setup/clean-up assistance from one helper? No. ORAL HYGIENE - STEP 3: Does the patient need only verbal/nonverbal cueing or touching/steadying/contact guard assistance fro m one helper? Yes. 1. [id number] ADMISSION PERFORMANCE: Supervision or touching assistance CODE: 04 TOILETING HYGIENE: TOILETING HYGIENE - STEP 1: Does the patient complete the activity by him/herself with no assistance (physical, verbal/nonverbal cueing, setup/clean-up)? No. TOILETING HYGIENE - STEP 2: Does the patient need only setup/clean-up assistance from one helper? No. TOILETING HYGIENE - STEP 3: Does the patient need only verbal/nonverbal cueing or touching/steadying/contact guard assistance fro m one helper? Yes. 1. [id number] ADMISSION PERFORMANCE: Supervision or touching assistance CODE: 04 BATHING: Not assessed/no information CODE: - DRESSING - UPPER BODY: DRESSING - UPPER BODY - STEP 1: Does the patient complete the activity by him/herself with no assistance (physical, verbal/nonverbal cueing, setup/clean-up)? No. DRESSING - UPPER BODY - STEP 2: Does the patient need only setup/clean-up assistance from one helper? No. DRESSING - UPPER BODY - STEP 3: Does the patient need only verbal/nonverbal cueing or touching/steadying/contact guard assistance fro m one helper? Yes. 1. [id number] ADMISSION PERFORMANCE: Supervision or touching assistance CODE: 04 DRESSING - LOWER BODY: DRESSING - LOWER BODY - STEP 1: Does the patient complete the activity by him/herself with no assistance (physical, verbal/nonverbal cueing, setup/clean-up)? No. DRESSING - LOWER BODY - STEP 2: Does the patient need only setup/clean-up assistance from one helper? No. DRESSING - LOWER BODY - STEP 3: Does the patient need only verbal/nonverbal cueing or touching/steadying/contact guard assistance fro m one helper? Yes. 1. [id number] ADMISSION PERFORMANCE: Supervision or touching assistance CODE: 04 PUTTING ON/TAKING OFF FOOTWEAR: FOOTWEAR - STEP 1: Does the patient complete the activity by him/herself with no assistance (physical, verbal/nonverbal cueing, setup/clean-up)? No. FOOTWEAR - STEP 2: Does the patient need only setup/clean-up assistance from one helper? No. FOOTWEAR - STEP 3: Does the patient need only verbal/nonverbal cueing or touching/steadying/contact guard assistance fro m one helper? No. FOOTWEAR - STEP 4: Does the patient need physical assistance - for example lifting or trunk support from one helper - wi th the helper providing less than half of the effort? Yes. 1. [id number] ADMISSION PERFORMANCE: Partial/moderate assistance CODE: 03 ROLL LEFT AND RIGHT: ROLL LEFT AND RIGHT - STEP 1: Does the patient complete the activity by him/herself with no assistance (physical, verbal/nonverbal cueing, setup/clean-up)? No. ROLL LEFT AND RIGHT - STEP 2: Does the patient need only setup/clean-up assistance from one helper? Yes. 1. [id number] ADMISSION PERFORMANCE: Setup or clean-up assistance CODE: 05 SIT TO LYING: SIT TO LYING - STEP 1: Does the patient complete the activity by him/herself with no assistance (physical, verbal/nonverbal cueing, setup/clean-up)? No. SIT TO LYING - STEP 2: Does the patient need only setup/clean-up assistance from one helper? Yes. 1. [id number] ADMISSION PERFORMANCE: Setup or clean-up assistance CODE: 05 LYING TO SITTING: LYING TO SITTING ON SIDE OF BED - STEP 1: Does the patient complete the activity by him/herself with no assistance (physical, verbal/nonverbal cueing, setup/clean-up)? No. LYING TO SITTING ON SIDE OF BED - STEP 2: Does the patient need only setup/clean-up assistance from one helper? Yes. 1. [id number] ADMISSION PERFORMANCE: Setup or clean-up assistance CODE: 05 SIT TO STAND: SIT TO STAND - STEP 1: Does the patient complete the activity by him/herself with no assistance (physical, verbal/nonverbal cueing, setup/clean-up)? No. SIT TO STAND - STEP 2: Does the patient need only setup/clean-up assistance from one helper? Yes. 1. [id number] ADMISSION PERFORMANCE: Setup or clean-up assistance CODE: 05 TRANSFERS: BED, CHAIR: CHAIR/[id number] TRANSFER - STEP 1: Does the patient complete the activity by him/herself with no assistance (physical, verbal/nonverbal cueing, setup/clean-up)? No. CHAIR/[id number] TRANSFER - STEP 2: Does the patient need only setup/clean-up assistance from one helper? Yes. 1. [id number] ADMISSION PERFORMANCE: Setup or clean-up assistance CODE: 05 TRANSFER TOILET: TOILET TRANSFER - STEP 1: Does the patient complete the activity by him/herself with no assistance (physical, verbal/nonverbal cueing, setup/clean-up)? No. TOILET TRANSFER - STEP 2: Does the patient need only setup/clean-up assistance from one helper? Yes. 1. [id number] ADMISSION PERFORMANCE: Setup or clean-up assistance CODE: 05 TRANSFERS: CAR: Not assessed/no information CODE: - WALK 10 FEET: Not assessed/no information CODE: - 1 STEP (CURB): Not assessed/no information CODE: - PICKING UP OBJECT: Not assessed/no information CODE: - DOES THE PATIENT USE A WHEELCHAIR/SCOOTER? Q1. DOES THE PATIENT USE A WHEELCHAIR/SCOOTER?: Yes CODE: 1 WHEEL 50 FEET WITH TWO TURNS: WHEEL 50 FEET WITH TWO TURNS - STEP 1: Does the patient complete the activity by him/herself with no assistance (physical, verbal/nonverbal cueing, setup/clean-up)? No. WHEEL 50 FEET WITH TWO TURNS - STEP 2: Does the patient need only setup/clean-up assistance from one helper? Yes. 1. [id number] ADMISSION PERFORMANCE: Setup or clean-up assistance CODE: 05 INDICATE THE TYPE OF WHEELCHAIR/SCOOTER USED: RR1. INDICATE THE TYPE OF WHEELCHAIR/SCOOTER USED.: Manual CODE: 1 WHEEL 150 FEET: WHEEL 150 FEET - STEP 1: Does the patient complete the activity by him/herself with no assistance (physical, verbal/nonverbal cueing, setup/clean-up)? No. WHEEL 150 FEET - STEP 2: Does the patient need only setup/clean-up assistance from one helper? Yes. 1. [id number] ADMISSION PERFORMANCE: Setup or clean-up assistance CODE: 05 INDICATE THE TYPE OF WHEELCHAIR/SCOOTER USED: SS1. INDICATE THE TYPE OF WHEELCHAIR/SCOOTER USED.: Manual CODE: 1 BLADDER AND BOWEL: H350. BLADDER CONTINENCE (3-DAY ASSESSMENT PERIOD): Always continent (no documented incontinence) CODE: 0 H400. BOWEL CONTINENCE (3-DAY ASSESSMENT PERIOD): Always continent CODE: 0 SIGNATURE PANEL: The following modified sections: 1. [id number] Admission Performance, 1. FM6717J Admission Performance, 1. DG4015J Admission Performance, 1. BB4909c Admission Performance, 1. GR7676S Admission Performance, 1. GS6476T Admission Performance, 1. DV1423h Admission Performance, 1. MI1752v Admission Performance , 1. IT1236c Admission Performance, 1. LT7393v Admission Performance, 1. YW6411x Admission Performanc e, 1. VB6060V Admission Performance, 1. KK5544I Admission Performance, 1. WP8242J Admission Performan ce, 1. FI5692L Admission Performance, 1. ED3254C Admission Performance, 1. QW3291J Admission Performa nce, 1. BM8820C Admission Performance, Q1. Does the patient use a wheelchair/scooter?, 1. GR2655T Adm ission Performance, RR1. Indicate the type of wheelchair/scooter used., 1. [id number] Admission Performa nce, Code, SS1. Indicate the type of wheelchair/scooter used., H350. Bladder Continence (3-day assess ment period), H400. Bowel Continence (3-day assessment period) were [electronically] signed by Julito HinsonNJustice on MonMar 11 2020 16:41:06 GMT-0500 (Central Daylight Time)
[2020-03-11] MEDS: ENOXAPARIN 40 MG/0.4 ML SQ SCH (17:04)
--- NOTE | 2020-03-11 17:44 | R.PN ---
PROGRESS NOTES ENCOUNTER DATE AND TIME: 03/11/2020 17:39 (CDT) NAME JACINDA ESQUEDA DATE OF : 1940 DATE OF ADMISSION: 03/02/2020 13:02 (CDT) HX OF PROSTATE CANCER W BONY METASTASIS IN THE LUMBOSACRALCHIEF COMPLAINT: Debility and metastatic prostate cancer SUBJECTIVE: Pt denied any Shortness of Breath. Pt denied any depression. WBC 8.6, Hgb 11.7, prealbumin 20.4, UA is negative. Ambulated 250' with independence using a rolling walker. PSA is very elevated at 28.6, 7 times normal. He is followed by urology in [place]. VITAL SIGNS Temperature: 97.4 F SBP/DBP: 149/75 Pulse: 84 Resp: 16 MEDICATION ALLERGIES: No Known Drug Allergies (NKDA) ENVIRONMENTAL ALLERGIES: - Substance Allergies None Known - Other Allergies None Known NURSING: - Shower allowing shower ACTIVITIES OOB only with supervision THERAPIES: - Dietary and Nutrition Adequate Nutrition. Nutritional Education. Nutritional Supplements. PHYSICAL EXAM - Gen Alert and awake Lying in bed No apparent distress Oriented to: person, time, and place - Skin No skin breakdown. No abnormalities - Eyes No abnormalities - ENMT No abnormalities - Neck No abnormalities - CVS RRR - Chest No abnormalities - Resp Clear to auscultation - Abd + bowel sounds - GI Non distended Deferred - No abnormalities - Ext No significant edema - MSK 4+/5 weakness in both lower extremities. - Neuro No focal deficits - Psych No abnormalities ASSESSMENT: Pt. 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 was independent/mod-I in L ocomotion, Safety Awareness, Social Cognition, Transfers Control, and Communication; and he had good Sphincter Control, Self-Care, and Endurance.Currently, he has deficits of Locomotion, Safety Awarenes s, Social Cognition, Sphincter Control, Communication, and Endurance.Pt. is now referred to [facility] for acute in-patient rehabilitation in order to maximize patient's functiona l independence in activities of daily living, strength, ROM, and mobility.- Rehab Goal Patient has realistic goal of being discharged at assistance level 7-Ind to reside at Home with Pt s elf. MDM/PLAN: - Physical Therapy Gait dysfunction - to improve, our physical therapists will perform initial evaluation of pt's statu s upon admission and devise an individualized program for Gait Training, and Wheel Chair mobility Need for home safety evaluation - to improve, our physical therapists will perform initial evaluatio n of pt's status upon admission and devise an individualized program for Home Evaluation Need in caregiver upon discharge - to improve, our physical therapists will perform initial evaluati on of pt's status upon admission and devise an individualized program for Caregiver Training New precaution - to improve, our physical therapists will perform initial evaluation of pt's status upon admission and devise an individualized program for Patient precaution education Edema - to improve, our physical therapists will perform initial evaluation of pt's status upon admi ssion and devise an individualized program for Elevation Training, and Lymphedema Therapy Poor endurance - to improve, our physical therapists will perform initial evaluation of pt's status upon admission and devise an individualized program for Endurance Training Weakness - to improve, our physical therapists will perform initial evaluation of pt's status upon a dmission and devise an individualized program for Aquatic Therapy, Neuromuscular Reeducation, and Str engthening Achieving independence - to improve, our physical therapists will perform initial evaluation of pt's status upon admission and devise an individualized program for Community Reintegration Activities - Occupational Therapy Cognitive deficits - to improve, our occupation therapists will perform initial evaluation of pt's s tatus upon admission and devise an individualized program for Cognition - orientation Need for career manager - to improve, our occupation therapists will perform initial evaluation of pt's status upon admission and devise an individualized program for Caregiver Training Weakness - to improve, our occupation therapists will perform initial evaluation of pt's status upon admission and devise an individualized program for Aquatic Therapy, Balance, Endurance, UE ROM, and UE strengthening - Other See attached MAR (Medication Administration Record) - Diet Type Continue Regular - Diet - Liquid Texture Continue Regular - Tube Feed Continue N/A - Diet - Solid Texture Continue Regular - Shower allowing shower FUNCTIONAL STATUS: UPDATED AT WEEKLY TEAM CONFERENCE - Bladder Same accident frequency: 7-Ind - No accidents in the past 7 days - Bowel Same accident frequency: 7-Ind - No accidents in the past 7 days - Walking Same score based on distance walked: 0(N/A) Same score based on distance walked: 3(>=150ft) - Wheelchair Same score based on distance traveled: 0(N/A) FUNCTIONAL STATUS: - Self-Care A. Eating Ind B. Grooming Aisha C. Bathing Shanon D. Dressing - Upper sup E. Dressing - Lower Shanon F. Toileting Aisha - Sphincter Control G. Bladder control sup H. Bowel control sup - Transfers Control I. Bed/Chair/Wheelchair sup J. Toilet sup K. Tub/Shower Shanon - Locomotion L. Walk/Wheelchair (B) Aisha M. Stairs sup - Communication N. Comprehension (B) Aisha O. Expression (B) Aisha - Social Cognition P. Social Interaction Aisha Q. Problem Solving Aisha R. Memory Aisha - Endurance Good - Balance Good - Safety Awareness Good QI SCORES: - Self-Care A. Eating 03-Partial/moderate assistance B. Oral hygiene 03-Partial/moderate assistance C. Toileting hygiene 02-Substantial/maximal assistance E. Shower/bathe self 02-Substantial/maximal assistance F. Upper body dressing 03-Partial/moderate assistance G. Lower body dressing 03-Partial/moderate assistance H. Putting on/taking off footwear 88-Not attempted due to medical condition or safety concerns - Mobility A. Roll left and right 03-Partial/moderate assistance B. Sit to lying 03-Partial/moderate assistance C. Lying to sitting on side of bed 03-Partial/moderate assistance D. Sit to stand 04-Supervision or touching assistance E. Chair/luk-eg-klong transfer 04-Supervision or touching assistance F. Toilet transfer 02-Substantial/maximal assistance G. Car transfer 88-Not attempted due to medical condition or safety concerns I. Walk 10 feet 04-Supervision or touching assistance J. Walk 50 feet with two turns 04-Supervision or touching assistance K. Walk 150 feet 04-Supervision or touching assistance L. Walking 10 feet on uneven surfaces 88-Not attempted due to medical condition or safety concerns M. 1 step (curb) 88-Not attempted due to medical condition or safety concerns N. 4 steps 88-Not attempted due to medical condition or safety concerns O. 12 steps 88-Not attempted due to medical condition or safety concerns P. Picking up object 88-Not attempted due to medical condition or safety concerns R. Wheel 50 feet with two turns 88-Not attempted due to medical condition or safety concerns S. Wheel 150 feet 03-Partial/moderate assistance - Bladder and Bowel Bladder continence Bowel continence - Endurance Fair - Balance Fair - Safety Awareness Fair CURRENT [facility] DEFICITS: Self-Care, Mobility, Endurance, Balance, and Safety Awareness SIGNATURE PANEL: (CDT)
[2020-03-11] MEDS: TRAZODONE 50 MG TABLET PO PRN (19:11)
[2020-03-11] MEDS: MELATONIN 3 MG TABLET PO PRN (19:12)
[2020-03-11] MEDS: DOCUSATE NA/SENNA CONC 1 TAB PO PRN (19:12)
[2020-03-12] MEDS: CEPHALEXIN 500 MG CAP PO SCH ×3 (00:08→17:15)
[2020-03-12] MEDS: HYDROCODONE/APAP 5/325 MG TAB PO PRN ×2 (00:10→20:18)
[2020-03-12 06:22] LABS: Absolute Lymphocytes (CBC) 1.6 K/uL (0.7-4.9); Basophils % 0.8 % (0-1.3); Hematocrit 33.7 % (39.6-49.0); Lymphocytes % 18.8 % (15.3-44.8); MPV 7.7 fL (7.6-11.3); RBC Red Blood Cell Count 3.47 M/uL (4.33-5.43)
[2020-03-12 06:42] LABS: Albumin 2.8 g/dL (3.4-5.0); Magnesium 2.2 mg/dL (1.8-2.4); Potassium 4.2 mmol/L (3.5-5.1); Prealbumin 18.8 mg/dL (20-40)
[2020-03-12] MEDS: LOSARTAN POTASSIUM 50 MG TABLET PO SCH (07:49)
[2020-03-12] MEDS: MEMANTINE HCL 10 MG TABLET PO SCH (07:50)
[2020-03-12] MEDS: predniSONE 5 MG TAB PO SCH ×2 (07:50→20:10)
[2020-03-12] MEDS: TAMSULOSIN 0.4 MG SR CAP PO SCH (07:50)
[2020-03-12] MEDS: PROMOD 30 ML DOSE PO SCH ×2 (07:51→20:11)
[2020-03-12] MEDS: ENOXAPARIN 40 MG/0.4 ML SQ SCH (17:15)
--- NOTE | 2020-03-12 17:46 | R.PN ---
PROGRESS NOTES ENCOUNTER DATE AND TIME: 03/12/2020 17:42 (CDT) NAME JACINDA ESQUEDA DATE OF : 1940 DATE OF ADMISSION: 03/02/2020 13:02 (CDT) HX OF PROSTATE CANCER W BONY METASTASIS IN THE LUMBOSACRALCHIEF COMPLAINT: Debility and metastatic prostate cancer SUBJECTIVE: Pt denied any Shortness of Breath. Pt denied any depression. WBC 8.7, Hgb 11.5, prealbumin 18.8, UA is negative. Ambulated 1000' with independence using a rolling walker. Up and down 15 steps with independence. PSA is very elevated at 28.6, 7 times normal. He is followed by urology in [place]. VITAL SIGNS Temperature: 97.2 F SBP/DBP: 132/58 Pulse: 72 Resp: 16 MEDICATION ALLERGIES: No Known Drug Allergies (NKDA) ENVIRONMENTAL ALLERGIES: - Substance Allergies None Known - Other Allergies None Known NURSING: - Shower allowing shower ACTIVITIES OOB only with supervision THERAPIES: - Dietary and Nutrition Adequate Nutrition. Nutritional Education. Nutritional Supplements. PHYSICAL EXAM - Gen Alert and awake Lying in bed No apparent distress Oriented to: person, time, and place - Skin No skin breakdown. No abnormalities - Eyes No abnormalities - ENMT No abnormalities - Neck No abnormalities - CVS RRR - Chest No abnormalities - Resp Clear to auscultation - Abd + bowel sounds - GI Non distended Deferred - No abnormalities - Ext No significant edema - MSK 4+/5 weakness in both lower extremities. - Neuro No focal deficits - Psych No abnormalities ASSESSMENT: Pt. 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 was independent/mod-I in L ocomotion, Safety Awareness, Social Cognition, Transfers Control, and Communication; and he had good Sphincter Control, Self-Care, and Endurance.Currently, he has deficits of Locomotion, Safety Awarenes s, Social Cognition, Sphincter Control, Communication, and Endurance.Pt. is now referred to [facility] for acute in-patient rehabilitation in order to maximize patient's functiona l independence in activities of daily living, strength, ROM, and mobility.- Rehab Goal Patient has realistic goal of being discharged at assistance level 7-Ind to reside at Home with Pt s elf. MDM/PLAN: - Physical Therapy Gait dysfunction - to improve, our physical therapists will perform initial evaluation of pt's statu s upon admission and devise an individualized program for Gait Training, and Wheel Chair mobility Need for home safety evaluation - to improve, our physical therapists will perform initial evaluatio n of pt's status upon admission and devise an individualized program for Home Evaluation Need in caregiver upon discharge - to improve, our physical therapists will perform initial evaluati on of pt's status upon admission and devise an individualized program for Caregiver Training New precaution - to improve, our physical therapists will perform initial evaluation of pt's status upon admission and devise an individualized program for Patient precaution education Edema - to improve, our physical therapists will perform initial evaluation of pt's status upon admi ssion and devise an individualized program for Elevation Training, and Lymphedema Therapy Poor endurance - to improve, our physical therapists will perform initial evaluation of pt's status upon admission and devise an individualized program for Endurance Training Weakness - to improve, our physical therapists will perform initial evaluation of pt's status upon a dmission and devise an individualized program for Aquatic Therapy, Neuromuscular Reeducation, and Str engthening Achieving independence - to improve, our physical therapists will perform initial evaluation of pt's status upon admission and devise an individualized program for Community Reintegration Activities - Occupational Therapy Cognitive deficits - to improve, our occupation therapists will perform initial evaluation of pt's s tatus upon admission and devise an individualized program for Cognition - orientation Need for senior care manager - to improve, our occupation therapists will perform initial evaluation of pt's status upon admission and devise an individualized program for Caregiver Training Weakness - to improve, our occupation therapists will perform initial evaluation of pt's status upon admission and devise an individualized program for Aquatic Therapy, Balance, Endurance, UE ROM, and UE strengthening - Other See attached MAR (Medication Administration Record) - Diet Type Continue Regular - Diet - Liquid Texture Continue Regular - Tube Feed Continue N/A - Diet - Solid Texture Continue Regular - Shower allowing shower FUNCTIONAL STATUS: UPDATED AT WEEKLY TEAM CONFERENCE - Bladder Same accident frequency: 7-Ind - No accidents in the past 7 days - Bowel Same accident frequency: 7-Ind - No accidents in the past 7 days - Walking Same score based on distance walked: 0(N/A) Same score based on distance walked: 3(>=150ft) - Wheelchair Same score based on distance traveled: 0(N/A) FUNCTIONAL STATUS: - Self-Care A. Eating Ind B. Grooming Aisha C. Bathing Shanon D. Dressing - Upper sup E. Dressing - Lower Shanon F. Toileting Aisha - Sphincter Control G. Bladder control sup H. Bowel control sup - Transfers Control I. Bed/Chair/Wheelchair sup J. Toilet sup K. Tub/Shower Shanon - Locomotion L. Walk/Wheelchair (B) Aisha M. Stairs sup - Communication N. Comprehension (B) Aisha O. Expression (B) Aisha - Social Cognition P. Social Interaction Aisha Q. Problem Solving Aisha R. Memory Aisha - Endurance Good - Balance Good - Safety Awareness Good QI SCORES: - Self-Care A. Eating 03-Partial/moderate assistance B. Oral hygiene 03-Partial/moderate assistance C. Toileting hygiene 02-Substantial/maximal assistance E. Shower/bathe self 02-Substantial/maximal assistance F. Upper body dressing 03-Partial/moderate assistance G. Lower body dressing 03-Partial/moderate assistance H. Putting on/taking off footwear 88-Not attempted due to medical condition or safety concerns - Mobility A. Roll left and right 03-Partial/moderate assistance B. Sit to lying 03-Partial/moderate assistance C. Lying to sitting on side of bed 03-Partial/moderate assistance D. Sit to stand 04-Supervision or touching assistance E. Chair/[id number] transfer 04-Supervision or touching assistance F. Toilet transfer 02-Substantial/maximal assistance G. Car transfer 88-Not attempted due to medical condition or safety concerns I. Walk 10 feet 04-Supervision or touching assistance J. Walk 50 feet with two turns 04-Supervision or touching assistance K. Walk 150 feet 04-Supervision or touching assistance L. Walking 10 feet on uneven surfaces 88-Not attempted due to medical condition or safety concerns M. 1 step (curb) 88-Not attempted due to medical condition or safety concerns N. 4 steps 88-Not attempted due to medical condition or safety concerns O. 12 steps 88-Not attempted due to medical condition or safety concerns P. Picking up object 88-Not attempted due to medical condition or safety concerns R. Wheel 50 feet with two turns 88-Not attempted due to medical condition or safety concerns S. Wheel 150 feet 03-Partial/moderate assistance - Bladder and Bowel Bladder continence Bowel continence - Endurance Fair - Balance Fair - Safety Awareness Fair [facility]RENT [facility]. DEFICITS: Self-Care, Mobility, Endurance, Balance, and Safety Awareness SIGNATURE PANEL: (CDT)
[2020-03-12] MEDS: DOCUSATE NA/SENNA CONC 1 TAB PO PRN (20:10)
[2020-03-12] MEDS: TRAZODONE 50 MG TABLET PO PRN (20:10)
[2020-03-12] MEDS: MELATONIN 3 MG TABLET PO PRN (20:10)
[2020-03-13] MEDS: CEPHALEXIN 500 MG CAP PO SCH ×2 (00:41→07:55)
[2020-03-13 07:38] VITALS: TEMP 97.4
[2020-03-13] MEDS: ACETAMINOPHEN 500 MG TAB PO PRN (07:53)
[2020-03-13] MEDS: MEMANTINE HCL 10 MG TABLET PO SCH (07:54)
[2020-03-13] MEDS: PROMOD 30 ML DOSE PO SCH (07:54)
[2020-03-13] MEDS: TAMSULOSIN 0.4 MG SR CAP PO SCH (07:54)
[2020-03-13] MEDS: predniSONE 5 MG TAB PO SCH (07:55)
[2020-03-13] MEDS: LOSARTAN POTASSIUM 50 MG TABLET PO SCH ×2 (07:55→08:51)
--- NOTE | 2020-03-13 09:43 | P.RH.PN ---
Estimated Length of Stay: 12 Expected Discharge Date: 03/13/20 Discharge Disposition Plan: Home Family Support: Yes Fdc Goal: Mobility, Transfers, Self Care Vital Signs: Last Vital Signs Temp 97.4 F 03/13/20 07:37 Pulse 67 03/13/20 07:37 Resp 18 03/13/20 07:37 BP 115/49 L 03/13/20 07:37 Pulse Ox 98 03/13/20 07:37 Laboratory: Laboratory Last Values WBC 8.7 K/uL (4.3-10.9) 03/12/20 06:00 RBC 3.47 M/uL (4.33-5.43) L 03/12/20 06:00 Hgb 11.5 g/dL (13.6-17.9) L 03/12/20 06:00 Hct 33.7 % (39.6-49.0) L 03/12/20 06:00 MCV 97.2 fL (80-100) 03/12/20 06:00 MCH 33.2 pg (27.0-35.0) 03/12/20 06:00 MCHC 34.1 g/dL (32.0-36.0) 03/12/20 06:00 RDW 14.3 % (12.1-15.2) 03/12/20 06:00 Plt Count 217 K/uL (152-406) 03/12/20 06:00 MPV 7.7 fL (7.6-11.3) 03/12/20 06:00 Neutrophils % 74.9 % (41.7-73.7) H 03/12/20 06:00 Lymphocytes % 18.8 % (15.3-44.8) 03/12/20 06:00 Monocytes % 4.6 % (3.3-12.3) 03/12/20 06:00 Eosinophils % 0.9 % (0-4.4) 03/12/20 06:00 Basophils % 0.8 % (0-1.3) 03/12/20 06:00 Absolute Neutrophils 6.5 K/uL (1.8-8.0) 03/12/20 06:00 Absolute Lymphocytes 1.6 K/uL (0.7-4.9) 03/12/20 06:00 Absolute Monocytes 0.4 K/uL (0.1-1.3) 03/12/20 06:00 Absolute Eosinophils 0.1 K/uL (0-0.5) 03/12/20 06:00 Absolute Basophils 0.1 K/uL (0-0.5) 03/12/20 06:00 Sodium 139 mmol/L (136-145) 03/12/20 06:00 Potassium 4.2 mmol/L (3.5-5.1) 03/12/20 06:00 Chloride 105 mmol/L (98-107) 03/12/20 06:00 Carbon Dioxide 28 mmol/L (21-32) 03/12/20 06:00 BUN 23 mg/dL (7-18) H 03/12/20 06:00 Creatinine 1.02 mg/dL (0.55-1.3) 03/12/20 06:00 Estimated GFR 70 mL/min (=/>90) L 03/12/20 06:00 Glucose 99 mg/dL (74-106) 03/12/20 06:00 Calcium 9.1 mg/dL (8.5-10.1) 03/12/20 06:00 Magnesium 2.2 mg/dL (1.8-2.4) 03/12/20 06:00 Albumin 2.8 g/dL (3.4-5.0) L 03/12/20 06:00 Prealbumin 18.8 mg/dL (20-40) L 03/12/20 06:00 PSA Screen 28.60 ng/mL (0-4.00) H 03/06/20 17:00 Urine Color Yellow 03/02/20 15:30 Urine Appearance Clear 03/02/20 15:30 Urine pH 7.0 (5.0-7.0) 03/02/20 15:30 Ur Specific Cutler 1.010 (1.005-1.030) 03/02/20 15:30 Glucose (UA)(Auto) Negative (NEG) 03/02/20 15:30 Urine Ketones Negative (NEG) 03/02/20 15:30 Urine Blood Negative (NEG) 03/02/20 15:30 Urine Nitrite Negative (NEG) 03/02/20 15:30 Urine Bilirubin Negative (NEG) 03/02/20 15:30 Urine Urobilinogen 0.2 mg/dL (0.2-1.0) 03/02/20 15:30 Ur Leukocyte Esterase Negative (NEG) 03/02/20 15:30 Urine RBC <5 /HPF (NONE SEEN) 03/02/20 15:30 Urine WBC <5 /HPF (<5) 03/02/20 15:30 Ur Squamous Epith Cells <5 /HPF (NONE SEEN) 03/02/20 15:30 Urine Bacteria <20 /HPF (NONE SEEN) 03/02/20 15:30 Urine Culture Reflexed Not needed 03/02/20 15:30 Urine Total Protein Negative (NEG) 03/02/20 15:30 Weight: 194 lb 8 oz Wound Present: No Closed Surgical Incision Present: No Negative Pressure Wound Therapy Present: No Physician Update: Labs reviewed. Very elevated PSA noted. Otherwise blood work is stable. He is doing very well. He is independent with physical and occuational therapy. He will be discharged home with [facility] home health. Medical Issues: HX DEMENTIA, PROSTATE CANCER, HTN, EAR SURGERY. Pain Issues: TAKING TYLENOL 500mg, NORCO 5/325 FOR PAIN. Functional Improvement: Patient has met all short-term and long-term goals at this time, w/ the exception of a car transfer. Patient completes all tasks w/ good overall technique and safety awarness; patient presents w/ lethargy in PM. Summary: Patient's care plan and longterm goals have been reviewed and revised as necessary. Please see the Rehabilitation Signature page for all necessary signatures.
[2020-03-13 09:47] VITALS: BP 121/60
== END 2020-03-13 14:00 | disposition home health service (06) | DRG 948 ==
LOC: 5TH 15:02
PROVIDERS: ADMIT Psychiatry & Neurology Neurology with Special Qualifications in Child Neurology; ATTEND Psychiatry & Neurology Neurology with Special Qualifications in Child Neurology
DX: R53.81 Other malaise (principal); C79.89 Secondary malignant neoplasm of other specified sites; I10 Essential (primary) hypertension; Z95.5 Presence of coronary angioplasty implant and graft; Z60.2 Problems related to living alone; Z20.828 Contact with and (suspected) exposure to other viral communicable diseases
CPT/HCPCS: 36415; 70450; 72125; 72170; 80048; 80053; 81001; 81003; 81015; 82040; 82533; 82550; 82607; 82746; 83540; 83605; 83735; 84100; 84134; 84145; 84153; 84439; 84443; 84484; 85025; 85610; 85652; 87040; 87086; 87088; 92523; 93005; 96365; 96375; 97110; 97116; 97127; 97161; 97530; 97542; 99285; G0103; G0378; J0696; J1650; J7030; J7050; J7512; U0002

== ENCOUNTER 2020-03-29 18:26 | Emergency (ER) | payer MEDICARE ==
--- OUTSIDE RECORDS SUMMARY | 2020-03-29 18:27 | XMS REPORT | Continuity of Care Document ---
:1940 Author Organization [facility] [place] [facility] t Address [address] [place] [address] Care Team Providers Name Role Phone Yovany Galaviz DMD Attending Clinician Nam VO R Attending Clinician Problems Condition Condition Condition Status Onset Resolution Last Treating Co mments Source Name Details Category Date Date Treatment Clinician Date Bladder Bladder Diagnosis [facility] - thickening thickening Me moria l [facility] Clinics Prostate Prostate Diagnosis Active [facility] cancer cancer [facility] - Memoria l [facility] ent Clinics Stricture Stricture Diagnosis Active [facility] of male of male [facility] - urethra, urethra, Memori a unspecifie unspecifie l d d [facility] stricture stricture ent type type Clinics Allergies, Adverse Reactions, Alerts This patient has no known allergies or adverse reactions. Medications Ordered Filled Start Stop Current Ordering Indication Dosage Frequency Signature Comments Components Source Medication Medication Date Date Medication? Clinician (SIG) Name Name Bren Correia Yes Burke [address] [facility] [place] on an [facility] - empty Memoria stomach l [facility] ent Clinics Metoprolol Metoprolol Yes Burke [address] [facility] [address] Tartrate Tartrate Viet with food [facility] - Memoria l [facility] ent Clinics Losartan Losartan Yes Burke as [facility] Potassium Potassium Viet directed [facility] - Memoria l [facility] ent Clinics Senna S Senna S Yes Burke [address] Viet in the [facility] - evening as Memoria needed l [facility] Clinics Tramadol Tramadol Yes Burke [address] HCl HCl [place] as needed [facility] - Memoria l [facility] ent Clinics PrednisoLON PrednisoLON Yes Burke [address] E E [place] with food [facility]ukes - or milk in [facility] the l morning [facility] ent Clinics Clopidogrel Clopidogrel Yes Burke [address] Bisulfate Bisulfate Viet [facility] Clinics Lactulose Lactulose Yes Burke [address] [place] [facility] - [facility] l [facility] Clinics Gentamicin Gentamicin Yes Burke [address] Sulfate Sulfate Viet into Lukes - affected [facility] eye l Outpati ent Clinics Colace Colace Yes Burke [address] [facility] [address] [place] as needed [facility] - [facility] l [facility] Clinics Tamsulosin Tamsulosin Yes Burke [address] HCl HCl [place] [facility] - [facility] l [facility] Clinics Gabapentin Gabapentin Yes Burke [address] Viet kes - [facility] l [facility] Clinics Procedures This patient has no known procedures. Encounters Start End Encounter Admission Attending Care Care Encounter Source Date/Time Date/Time Type Type Clinicians Facility Department ID 2020-02-04 2020-02-04 FERNANDO Best [id number] 00:00:00 00:00:00 Management Serge SAXENA [id number] [facility] [id number] 2020-01-29 2020-01-29 Office GELY Browning [id number] 16:10:52 16:47:06 Visit Man MCWILLIAMS [id number] [facility] [id number] 2019-06-11 2019-06-11 Outpatient Krystian Bolandt [id number] 15:15:00 15:15:00 t Specialty/U Vicki kes - Specialty rology Memori a /Urology Clinic l Clinic [facility] 2019-05-28 2019-05-28 Outpatient Krystian [place]boza[place] [id number] 10:11:00 10:11:00 t Specialty/U Vicki kes - Specialty rology Memori a /Urology Clinic l Clinic [facility] 2019-02-26 2019-02-26 Outpatient Krystian [place] [id number] 14:00:00 14:00:00 t Specialty/U Vicki kes - Specialty rology Memori a /Urology Clinic l [facility] 2019-02-13 2019-02-13 Outpatient Krystian Sanchez [id number] 09:53:00 09:53:00 t Specialty/U Vicki kes [facility] 2019-01-15 2019-01-15 Outpatient Krystian Sanchez [id number] 13:00:00 13:00:00 t Specialty/U Vicki maxwells - Specialty rology [facility] a /Urology Clinic l [facility] Results This patient has no known results.
--- OUTSIDE RECORDS SUMMARY | 2020-03-29 18:27 | XMS REPORT | Summary of Care ---
:[address] [facility] Address [address] [place] [address] Care Team Providers Name Role Phone Kendall Branham Primary Care Provider Reason for Visit Reason Comments Follow-up re-eval and panorex Encounter Details Date Type Department Care Team Description 01/29/[address] 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 [place] [id number] [place] [address] [phone] Allergies No Known Allergiesdocumented as of this [...] old male referred by Dr. Bradley of [place], [place] for osteonecrosis of mandible and maxilla. He presents today for follow-up. He reports improvement of his symptoms sincebeginning Doxycyline and Peridex in January 2019. Patient with a history of metastatic prostate cancer diagnosed in 2013 and was started on monthly IVinjections of Zometa. Patient reports having full mouth extraction in [address] Jonny Jimenez of [place]. Patient states he feels that there are some 'holes' in his jaw. Patient was seen with Dr. Bradley who provided Amoxicillin and OMFS referral. Patient states he has not returned to [facility] for follow up or evaluation of non-healing sites. Histories Past Medical History: Diagnosis Date BPH (benign prostatic hyperplasia) HTN (hypertension) [place] (myocardial infarction) Prostate cancer Past Surgical History: [...] file Gets together: Not on file Attends sikhism service: Not on file Active member of [...] chest pain, (-) palpitations, (-) syncope; h/o [place] and stenting - plavix d/c'ed in 2018 [...] Date BPH (benign prostatic hyperplasia) HTN (hypertension) [place] (myocardial infarction) Prostate cancer Mk Paredes is [...] Browning, DDS [address] [place] [id number] 555 Health Maintenance Due Date Last Done [...]
--- OUTSIDE RECORDS SUMMARY | 2020-03-29 18:28 | XMS REPORT | Summary of Care ---
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 [place] [id number] [place] [address] [phone] Allergies No Known Allergiesdocumented as of this [...] old male referred by Dr. Bradley of [place], [place] for osteonecrosis of mandible and maxilla. He presents today for follow-up. He reports improvement of his symptoms sincebeginning Doxycyline and Peridex in January 2019. Patient with a history of metastatic prostate cancer diagnosed in 2013 and was started on monthly IVinjections of Zometa. Patient reports having full mouth extraction in [address] Jonny Jimenez of [place]. Patient states he feels that there are some 'holes' in his jaw. Patient was seen with Dr. Bradley who provided Amoxicillin and OMFS referral. Patient states he has not returned to [facility] for follow up or evaluation of [...] file Gets together: Not on file Attends bahai service: Not on file Active member of [...] Browning, DDS [address] [place] [address] 555 Health Maintenance Due Date Last Done [...]
--- OUTSIDE RECORDS SUMMARY | 2020-03-29 18:28 | XMS REPORT | Summary of Care ---
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 [place] [id number] [place] [address] [phone] Allergies No Known Allergiesdocumented as of this [...] old male referred by Dr. Bradley of [place], [place] for osteonecrosis of mandible and maxilla. He presents today for follow-up. He reports improvement of his symptoms sincebeginning Doxycyline and Peridex in January 2019. Patient with a history of metastatic prostate cancer diagnosed in 2013 and was started on monthly IVinjections of Zometa. Patient reports having full mouth extraction in [address] Jonny Jimenez of [place]. Patient states he feels that there are some 'holes' in his jaw. Patient was seen with Dr. Bradley who provided Amoxicillin and OMFS referral. Patient states he has not returned to [facility] for follow up or evaluation of non-healing sites. Histories Past Medical History: Diagnosis Date BPH (benign prostatic hyperplasia) HTN (hypertension) [place] (myocardial infarction) Prostate cancer Past Surgical History: [...] file Gets together: Not on file Attends rastafari service: Not on file Active member of [...] chest pain, (-) palpitations, (-) syncope; h/o [place] and stenting - plavix d/c'ed in 2018 [...] Date BPH (benign prostatic hyperplasia) HTN (hypertension) [place] (myocardial infarction) Prostate cancer Mk Paredes is [...] Browning, DDS [address] [place] [address] 555 Health Maintenance Due Date Last Done [...]
--- OUTSIDE RECORDS SUMMARY | 2020-03-29 18:28 | XMS REPORT | Summary of Care ---
:1940 Author Organization [facility] Address [address] [place] [address] Care Team Providers Name Role Phone Kendall Branham Primary Care Provider Reason for Visit Reason Comments Referral/consult Encounter Details Date Type Department Care Team Description 02/04/2020 Case Management [facility] Serge Galaviz, Referr al/consult Hospitals [facility] [address] [place] [address] [place] [address] [place], [place] [phone] [address] [phone] Allergies No Known Allergiesdocumented as of this [...] Browning, DDS [address] [place], [place] [address] [phone] Health Maintenance Due Date Last Done Comments [...] Effective Phone Address T e Group Dates [facility] [id number] 2019-Raul sorenson [facility] - MEDICARE nt HMO MANAGED MEDICARE ADVANTAGE documented as of this encounter
[2020-03-29 19:53] LABS: Urine Appearance CLOUDY; Urine Bilirubin NEGATIVE (NEG); Urine Blood 3+ (NEG); Urine Glucose NEGATIVE (NEG); Urine Protein 3+ (NEG); Urine Urobilinogen 0.2 mg/dL (0.2-1.0)
[2020-03-29 19:55] LABS: Urine Bacteria <20 /HPF (NONE SEEN); Urine Color RED; Urine Culture Reflex Order REFLEXED; Urine RBC LOADED /HPF (NONE SEEN)
[2020-03-29 20:12] LABS: Absolute Lymphocytes (CBC) 2.5 K/uL (0.7-4.9); Basophils % 0.7 % (0-1.3); Hematocrit 40.1 % (39.6-49.0); Lymphocytes % 18.3 % (15.3-44.8); MPV 7.6 fL (7.6-11.3); RBC Red Blood Cell Count 4.13 M/uL (4.33-5.43)
[2020-03-29 20:15] LABS: Protime INR 0.87
[2020-03-29 20:25] LABS: Albumin 3.5 g/dL (3.4-5.0); Bilirubin Direct 0.1 mg/dL (0-0.2); Bilirubin Total 0.3 mg/dL (0.2-1.0); Potassium 3.7 mmol/L (3.5-5.1)
[2020-03-29] MEDS ORDERED: LIDOCAINE VISCOUS 2% SOLN 15 ML UDC ONE (20:25)
[2020-03-29] MEDS ORDERED: NACL 0.9% IRR SOLN 2,000 ML IRR ONE (20:28)
[2020-03-29] MEDS ORDERED: CEFTRIAXONE/SWI 1gm 1 GM/10 ML SYR ONE (21:30)
--- NOTE | 2020-03-29 21:32 | EDPHYS ---
Physician Documentation [facility] Name: Mk Paredes Age: 79 yrs Sex: Male : 1940 Arrival Date: 03/29/2020 Time: 18:28 Bed 2 Private MD: ED Physician Nael Magallon HPI: 03/29 20:50 This 79 yrs old Male presents to ER via Ambulatory with complaints of Blood tw4 in Urine. 20:50 The patient presents with HEMATURIA. Onset: The symptoms/episode began/occurred today. tw4 Modifying factors: The symptoms are alleviated by nothing, the symptoms are aggravated by nothing. Associated signs and symptoms: The patient has no apparent associated signs or symptoms. The patient has not experienced similar symptoms in the past. Historical: - Allergies: 18:48 No Known Allergies; hb - Home Meds: 18:48 abiraterone Oral [Active]; aspirin 81 mg Oral chew 1 tab once daily [Active]; hb Doxycycline Oral [Active]; Furosemide Oral [Active]; losaratan Potassium [Active]; mematine [Active]; Metoprolol Tartrate Oral [Active]; Prednisone Oral [Active]; tamsulosin 0.4 mg Oral cp24 1 cap once daily [Active]; Zytiga Oral [Active]; - PMHx: 18:48 Dementia; Hypertension; Prostate Cancer; hb - PSHx: 18:48 Heart stents; hb - Immunization history:: Adult Immunizations up to date. - Social history:: Smoking status: Patient denies any tobacco usage or history of. ROS: 20:50 Constitutional: Negative for fever, chills, and weight loss, Eyes: Negative for injury, tw4 pain, redness, and discharge, Cardiovascular: Negative for chest pain, palpitations, and edema, Respiratory: Negative for shortness of breath, cough, wheezing, and pleuritic chest pain, Abdomen/GI: Negative for abdominal pain, nausea, vomiting, diarrhea, and constipation. 20:50 : Positive for hematuria, burning with urination, difficulty urinating, Negative for injury or acute deformity, urinary symptoms, urinary frequency, small amounts, hematuria. Exam: 20:50 Constitutional: This is a well developed, well nourished patient who is awake, alert, tw4 and in no acute distress. Head/Face: Normocephalic, atraumatic. Chest/axilla: Normal chest wall appearance and motion. Nontender with no deformity. No lesions are appreciated. Cardiovascular: Regular rate and rhythm with a normal S1 and S2. No gallops, murmurs, or rubs. Normal PMI, no JVD. No pulse deficits. Respiratory: Lungs have equal breath sounds bilaterally, clear to auscultation and percussion. No rales, rhonchi or wheezes noted. No increased work of breathing, no retractions or nasal flaring. Abdomen/GI: Soft, non-tender, with normal bowel sounds. No distension or tympany. No guarding or rebound. No evidence of tenderness throughout. Back: No spinal tenderness. No costovertebral tenderness. Full range of motion. MS/ Extremity: Pulses equal, no cyanosis. Neurovascular intact. Full, normal range of motion. Neuro: Awake and alert, GCS 15, oriented to person, place, time, and situation. Cranial nerves II-XII grossly intact. Motor strength 5/5 in all extremities. Sensory grossly intact. Cerebellar exam normal. Normal gait. Vital Signs: 18:43 BP 174 / 101; Pulse 57; Resp 16; Temp 97.2; Pulse Ox 100% on R/A; Pain 3/10; hb 21:40 BP 155 / 86; Pulse 61; Resp 15; Temp 98; Pulse Ox 100% on R/A; rv MDM: 19:40 Patient medically screened. tw4 21:27 Differential diagnosis: UTI, urinary retention, Blackman catheter problem, prostatitis. tw4 Data reviewed: vital signs, nurses notes. Data interpreted: Pulse oximetry: Interpretation: normal. Counseling: I had a detailed discussion with the patient and/or guardian regarding: the historical points, exam findings, and any diagnostic results supporting the discharge/admit diagnosis. ED course: Inserted Blackman and irrigated until clear by RN. Pt tolerated procedure well. 03/29 19:24 Order name: Urine Microscopic Only tw4 03/29 19:38 Order name: Basic Metabolic Panel; Complete Time: 21:04 tw4 03/29 21:04 Interpretation: Normal except: GLUC 124; CRE 1.31; GFR 53; BUN 20. tw4 03/29 19:38 Order name: CBC with Diff; Complete Time: 21:04 tw4 03/29 21:05 Interpretation: Normal except: WBC 13.8; RBC 4.13; HGB 13.2; STEPHANIE% 75.5; NEUT A 10.4. [facility] 03/29 19:38 Order name: Hepatic Function; Complete Time: 21:04 [facility] 03/29 21:05 Interpretation: Normal except: ALK 142; AST 11; A/G 1.0. [facility] 03/29 19:24 Order name: Urine Dipstick-Ancillary (obtain specimen); Complete Time: 21:06 [facility] 03/29 19:38 Order name: IV Saline Lock; Complete Time: 20:03 [facility] 03/29 19:38 Order name: PT-INR; Complete Time: 21:04 [facility] 03/29 19:38 Order name: Ptt, Activated; Complete Time: 21:04 [facility] 03/29 19:44 Order name: Urinalysis W/Microscopic; Complete Time: 21:04 [facility] 03/29 19:57 Order name: Urine Culture [facility] 03/29 19:38 Order name: Labs collected and sent; Complete Time: 20:03 [facility] 03/29 20:44 Order name: Three way blackman irrigation; Complete Time: 20:44 rv Administered Medications: 20:44 Drug: Viscous Lidocaine Liquid (4 %) 5 ml Route: Mucous Membrane; rv 21:38 Follow up: Response: No adverse reaction rv 21:30 Drug: Rocephin - (cefTRIAXone) 1 grams Route: IVPB; Infused Over: 30 mins; Site: left rv forearm; 21:38 Follow up: Response: No adverse reaction; IV Status: Completed infusion rv Disposition: 03/29/20 21:31 Discharged to Home. Impression: Retention of urine, unspecified, Hematuria. - Condition is Stable. - Discharge Instructions: Hematuria, Adult, Urinary Tract Infection, Adult, Acute Urinary Retention, Male, [id number]. - Prescriptions for Macrobid 100 mg Oral Capsule - take 1 capsule by ORAL route every 12 hours for 7 days; 14 capsule. - Medication Reconciliation Form, Thank You Letter, Antibiotic Education, Prescription Opioid Use form. - Follow up: Private Physician; When: Upon discharge from the Emergency Department; Reason: Recheck today's complaints, Continuance of care, Re-evaluation by your physician. - Problem is new. - Symptoms have improved. Signatures: Dispatcher [employer] [facility] Miley Gonzalez RN RN hb Nael Magallon MD MD tw4 Jason Pardo, RN RN rv Corrections: (The following items were deleted from the chart) 19:43 19:38 URINALYSIS+U.LAB.BRZ ordered. EDMN EDMS 21:50 21:31 03/29/2020 21:31 Discharged to Home. Impression: Retention of urine, unspecified; rv Hematuria. Condition is Stable. Forms are Medication Reconciliation Form, Thank You Letter, Antibiotic Education, Prescription Opioid Use. Follow up: Private Physician; When: Upon discharge from the Emergency Department; Reason: Recheck today's complaints, Continuance of care, Re-evaluation by your physician. Problem is new. Symptoms have improved. tw4
--- NOTE | 2020-03-29 21:32 | ER ---
Nurse's Notes [facility] Name: Mk Paredes Age: 79 yrs Sex: Male : 1940 Arrival Date: 03/29/2020 Time: 18:28 Bed 2 Private MD: Diagnosis: Retention of urine, unspecified;Hematuria Presentation: 03/29 18:43 Chief complaint: Urinary urgency and frequency, pain with urination and blood in urine hb today. 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 Coronavirus screen: At this time, the client does not indicate any symptoms associated with coronavirus-19. Ebola Screen: No symptoms or risks identified at this time. Initial Sepsis Screen: Does the patient meet any 2 criteria? No. Patient's initial sepsis screen is negative. Does the patient have a suspected source of infection? No. Patient's initial sepsis screen is negative. Risk Assessment: Do you want to hurt yourself or someone else? Patient reports no desire to harm self or others. Onset of symptoms was March 29, 2020. 18:43 Method Of Arrival: Ambulatory hb 18:43 Acuity: SILVIA 3 hb Historical: - Allergies: 18:48 No Known Allergies; hb - Home Meds: 18:48 abiraterone Oral [Active]; aspirin 81 mg Oral chew 1 tab once daily [Active]; hb Doxycycline Oral [Active]; Furosemide Oral [Active]; losaratan Potassium [Active]; mematine [Active]; Metoprolol Tartrate Oral [Active]; Prednisone Oral [Active]; tamsulosin 0.4 mg Oral cp24 1 cap once daily [Active]; Zytiga Oral [Active]; - PMHx: 18:48 Dementia; Hypertension; Prostate Cancer; hb - PSHx: 18:48 Heart stents; hb - Immunization history:: Adult Immunizations up to date. - Social history:: Smoking status: Patient denies any tobacco usage or history of. Screenin:41 Abuse screen: Denies threats or abuse. Denies injuries from another. Nutritional rv screening: No deficits noted. Tuberculosis screening: No symptoms or risk factors identified. Fall Risk None identified. Assessment: 20:40 General: Appears ill, Behavior is restless. Pain: Complains of pain in pelvis. Neuro: rv Level of Consciousness is awake, alert, obeys commands, Oriented to person, place, time, situation. Cardiovascular: Patient's skin is warm and dry. Respiratory: Airway is patent Respiratory effort is even, unlabored, Breath sounds are clear bilaterally. : Blood noted on penis. Derm: Skin is intact. 21:38 Reassessment: CONVERTED TO LEG BAG. INSTRUCTIONS GIVEN ON [facility]. FAMILY VERBALIZED rv UNDERSTANDING. Vital Signs: 18:43 BP 174 / 101; Pulse 57; Resp 16; Temp 97.2; Pulse Ox 100% on R/A; Pain 3/10; hb 21:40 BP 155 / 86; Pulse 61; Resp 15; Temp 98; Pulse Ox 100% on R/A; rv ED Course: 18:28 Patient arrived in ED. ds1 18:46 Triage completed. hb 18:48 Arm band placed on. hb 19:38 Nael Magallon MD is Attending Physician. tw4 19:42 Kiana Moncada is Primary Nurse. wh 20:02 Initial lab(s) drawn, by me, sent to lab. Inserted saline lock: 20 gauge in right rv forearm, using aseptic technique. Blood collected. 20:40 3-way catheter inserted, using sterile technique, 16 Fr. Returned bloody urine. rv 20:41 Patient has correct armband on for positive identification. Placed in gown. Bed in low rv position. Call light in reach. Side rails up X2. Pulse ox on. NIBP on. 21:40 No provider procedures requiring assistance completed. IV discontinued, intact, rv bleeding controlled, No redness/swelling at site. Pressure dressing applied. Administered Medications: 20:44 Drug: Viscous Lidocaine Liquid (4 %) 5 ml Route: Mucous Membrane; rv 21:38 Follow up: Response: No adverse reaction rv 21:30 Drug: Rocephin - (cefTRIAXone) 1 grams Route: IVPB; Infused Over: 30 mins; Site: left rv forearm; 21:38 Follow up: Response: No adverse reaction; IV Status: Completed infusion rv Outcome: 21:31 Discharge ordered by . tw4 21:40 Discharged to home ambulatory, with family. rv 21:40 Condition: good 21:40 Discharge instructions given to patient, family, Instructed on discharge instructions, follow up and referral plans. medication usage, [facility] Demonstrated understanding of instructions, follow-up care, medications, Prescriptions given X 1. 21:50 Patient left the ED. rv Signatures: Dori Sethi ds1 Miley Gonzalez, RN RN Kiana Rahman Terrence, MD MD tw4 Jason Pardo RN RN rv
[2020-03-29 22:16] VITALS: O2SAT 100
[2020-03-29 22:18] VITALS: BP 155/86; TEMP 98
== END 2020-03-29 21:50 | disposition home or self-care (01) ==
LOC: ER 18:26
DX: R33.9 Retention of urine, unspecified (principal); I10 Essential (primary) hypertension; F03.90 Unspecified dementia, unspecified severity, without behavioral disturbance, psychotic disturbance, mood disturbance, and anxiety; Z79.82 Long term (current) use of aspirin; Z85.46 Personal history of malignant neoplasm of prostate; Z95.818 Presence of other cardiac implants and grafts
CPT/HCPCS: 87088; 85025; 81001; 87086; 80048; 36415; 85610; 80076; 85730; 96374; 99284; J0696

== ENCOUNTER 2020-04-21 | Emergency (ER) | payer MEDICARE ==
--- OUTSIDE RECORDS SUMMARY | 2020-04-21 06:14 | XMS REPORT | Continuity of Care Document ---
:1940 Author Organization [facility] t Address [address] [place] [address] Care Team Providers Name Role Phone Yovany Galaviz DMD Attending Clinician Ashley Browning DDS Attending Clinician Payers Payer Name Policy Type Policy Number Effective Date Expiration Date S ource Problems Condition Condition Condition Status Onset Resolution Last Treating Co mments Source Name Details Category Date Date Treatment Clinician Date Bladder Bladder Diagnosis [facility] thickening [facility] Prostate Prostate Diagnosis Active [facility] cancer cancer [facility] Stricture Stricture Diagnosis Active [facility] of male of male [facility] - urethra, urethra, Memori a unspecifie unspecifie l d d Outpati stricture stricture ent type type Clinics Allergies, Adverse Reactions, Alerts Allergy Allergy Status Severity Reaction(s) Onset Inactive Treating Comm ents Source Name Type Date Date Clinician No Known DA Active U 2019-05 [facility] Allergie 06-13 Clear s 00:00: Valdovinos 00 [facility] Medications Ordered Filled Start Stop Current Ordering Indication Dosage Frequency Signature Comments Components Source Medication Medication Date Date Medication? Clinician (SIG) Name Name Pippafariha Pippafariha Yes Burke [address] [facility] [place] on an [facility] - empty [facility] stomach l [facility] Metoprolol Metoprolol Yes Bruke [address] [facility] Tartrate Tartrate [place] with food [facility] - [facility] Losartan Losartan Yes Burke as [facility] Potassium Potassium [place] directed [facility] Senna S Senna S Yes Burke [address] [place] in the [facility] - evening as Memoria needed l [facility] Tramadol Tramadol Yes Burke [address] HCl HCl Viet as needed Lu - [facility] PrednisoLON PrednisoLON Yes Burke [address] [facility] E [place] with [facility] Clopidogrel Clopidogrel Yes Burke [address] [facility] [address] Bisulfate Bisulfate Viet Nathaniel es - Memoria l [facility] Lactulose Lactulose Yes Burke [address] [place] [facility] Gentamicin Gentamicin Yes Burke [address] Sulfate Sulfate Viet into [facility] - affected [facility] eye l [facility] Colace Colace Yes Burke [address] [facility] [place] as needed [facility] l [facility] Tamsulosin Tamsulosin Yes Burke [address] HCl HCl Viet [facility] l [facility] Gabapentin Gabapentin Yes Burke [address] Viet [facility] Procedures This patient has no known procedures. Encounters Start End Encounter Admission Attending Care Care Encounter Source Date/Time Date/Time Type Type Clinicians Facility Department ID 2020-02-04 2020-02-04 Shekhar FERNANDO Galaviz [id number] 00:00:00 00:00:00 Management Serge SAXENA [id number] [facility] [id number] 2020-01-29 2020-01-29 Office GELY Browning [id number] 16:10:52 16:47:06 Visit Man MCWILLIAMS [id number] [facility] [id number] 2019-06-11 2019-06-11 Outpatient Krystian Sanchez [id number] [facility] 15:15:00 15:15:00 t Specialty/U Vicki kes - Specialty rology [facility] a /Urology Clinic l Clinic [facility] 2019-05-28 2019-05-28 Outpatient Krystian Sanchez [id number] [facility] 10:11:00 10:11:00 t Specialty/U Vicki kes - Specialty rology [facility] /Urology Clinic l [facility] 2019-02-26 2019-02-26 Outpatient Krystian Soria [id number] [facility] 14:00:00 14:00:00 t Specialty/U Vicki kes - Specialty rology [facility] /Urology Clinic l [facility] 2019-02-13 2019-02-13 Outpatient Krystian Sanchez [id number] [facility] [address] 09:53:00 09:53:00 t Specialty/U Vicki kes - Specialty rology [facility] a /Urology Clinic l Clinic [facility] 2019-01-15 2019-01-15 Outpatient Krystian Sanchez [id number] [facility] 13:00:00 13:00:00 t Specialty/U Vicki kes - Specialty rology [facility] /Urology Clinic l Clinic [facility] Results Test Description Test Time Test Comments Results Result Comments Source UA RFLX MICR CULT IF INDICATED 2020-04-17 11:39:00 Test Item Value Reference Range Interpretation Comme nts UA COLOR (test code = RED discript YEL/STRAW A ABNORM AL URINE COLOR MAY COLU) CAUSE INVALID R ESUTS DUE TO COLORINTERFEREN CE; MICROSCOPIC EXA M PERFORMED UA APPEARANCE (test code BLOODY discript CLEAR A = APPU) UA GLUCOSE DIPSTICK NEGATIVE mg/dL NEG (test code = DGLUU) UA BILIRUBIN DIPSTICK 2+ mg/dL NEG A (test code = BILU) UA KETONE DIPSTICK (test TRACE mg/dL NEG code = KETU) UA SPECIFIC GRAVITY 1.015 SG 1.005-1.030 (test code = SGU) UA BLOOD DIPSTICK (test 3+ mg/DL NEG A code = JERALD) UA PH DIPSTICK (test 7.0 pH UNITS 5.0-7.0 code = LINK) UA PROTEIN DIPSTICK 3+ mg/dL NEG A (test code = PROU) UA UROBILINIOGEN 1.0 mg/dL <2.0 DIPSTICK (test code = URO) UA NITRITE DIPSTICK POSITIVE SCREEN NEG A (test code = MAXIME) UA LEUKOCYTE ESTERASE 2+ Leuk/mcL NEGATIVE A DIPSTICK (test code = LEUU) UA WBC (test code = TNTC #WBC/HPF 0-3 A WBCU) UA RBC (test code = TNTC #RBC/HPF 0-3 A RBCU) UA CULTURE NEEDED? (test YES,WBC>10 & EPI<25 Culture CHK code = UACULT) Criteria Indication for culture: Dysuria/FrequencyUA RFLX MICR CULT IF INDICATED 2020-04-17 11:26:00 Test Item Value Reference Range Interpretation Comments UA COLOR (test code = RED discript YEL/STRAW A ABNORM AL URINE COLU) COLOR MAY CAUSE INVALID RESUTS DUE TO COLORINTERFEREN CE; MICROSCOPIC EXA M PERFORMED UA APPEARANCE (test BLOODY discript CLEAR A code = APPU) UA GLUCOSE DIPSTICK NEGATIVE mg/dL NEG (test code = DGLUU) UA BILIRUBIN DIPSTICK 2+ mg/dL NEG A (test code = BILU) UA KETONE DIPSTICK TRACE mg/dL NEG (test code = KETU) UA SPECIFIC GRAVITY 1.015 SG 1.005-1.030 (test code = SGU) UA BLOOD DIPSTICK 3+ mg/DL NEG A (test code = JERALD) UA PH DIPSTICK (test 7.0 pH UNITS 5.0-7.0 code = LINK) UA PROTEIN DIPSTICK 3+ mg/dL NEG A (test code = PROU) UA UROBILINIOGEN 1.0 mg/dL <2.0 DIPSTICK (test code = URO) UA NITRITE DIPSTICK POSITIVE SCREEN NEG A (test code = MAXIME) UA LEUKOCYTE ESTERASE 2+ Leuk/mcL NEGATIVE A DIPSTICK (test code = LEUU) UA CULTURE NEEDED? Criteria Culture CHK (test code = UACULT) Indication for culture: Dysuria/FrequencyBASIC METABOLIC [id number] 11:25:00 Test Item Value Reference Range Interpretation Comments SODIUM (test code = NA) 140 mmol/L 134-147 N POTASSIUM (test code = 4.0 mmol/L 3.4-5.0 N K) CHLORIDE (test code = 107 mmol/L 100-108 N CL) CARBON DIOXIDE (test 29 mmol/L 21-32 N code = CO2) ANION GAP (test code = 4.0 GAP calc 4.0-15.0 N GAP) GLUCOSE (test code = 102 MG/DL 70-110 N GLU) BLOOD UREA NITROGEN 18 MG/DL 7-18 N (test code = BUN) GLOMERULAR FILTRATION >=60 max estimate >60 RATE (test code = GFR) estGFR CREATININE (test code = 1.1 MG/DL 0.8-1.3 N CREAT) CALCIUM (test code = CA) 9.2 MG/DL 8.5-10.1 N CBC W/AUTO [id number] 11:14:00 Test Item Value Reference Range Interpretation Comments WHITE BLOOD CELL (test code = 9.4 K/mm3 3.5-11.0 N WBC) RED BLOOD CELL (test code = 3.50 M/mm3 4.70-6.10 L RBC) HEMOGLOBIN (test code = HGB) 11.0 G/DL 12.3-15.9 L HEMATOCRIT (test code = HCT) 36.3 % 35.8-46.7 N MEAN CELL VOLUME (test code = 103.7 Fl 86.3-98.9 H MCV) MEAN CELL HGB (test code = MCH) 31.4 pg 28.9-34.4 N MEAN CELL HGB CONCETRATION 30.3 G/DL 32.1-34.5 L (test code = MCHC) RED CELL DISTRIBUTION WIDTH 14.2 SD 11.5-14.5 N (test code = RDW) PLATELET COUNT (test code = 244 K/mm3 150-450 N PLT) MEAN PLATELET VOLUME (test code 9.10 fL 7.0-9.6 N = MPV) NEUTROPHIL % (test code = NT%) 83.1 % 40-76 H IMMATURE GRANULOCYTE % (test 0.4 % 0.0-5.0 N code = IG%) LYMPHOCYTE % (test code = LY%) 11.7 % 20.5-51.1 L MONOCYTE % (test code = MO%) 4.3 % 1.7-9.3 N EOSINOPHIL % (test code = EO%) 0.2 % 0.0-6.0 N BASOPHIL % (test code = BA%) 0.3 % 0.0-2.0 N NUCLEATED RBC % (test code = 0.0 /100WBC% 0.0-1.0 N NRBC%) NEUTROPHIL # (test code = NT#) 7.8 K/mm3 1.8-7.6 H IMMATURE GRANULOCYTE # (test 0.04 x10 3/uL 0.00-0.03 H code = IG#) LYMPHOCYTE # (test code = LY#) 1.1 K/mm3 0.6-3.0 N MONOCYTE # (test code = MO#) 0.4 K/mm3 0.2-1.5 N EOSINOPHIL # (test code = EO#) 0.0 K/mm3 0.0-0.4 N BASOPHIL # (test code = BA#) 0.0 K/mm3 0.0-0.2 N NUCLEATED RBC # (test code = 0.0 K/mm3 0.00-0.01 N NRBC#) MANUAL DIFF REQUIRED (test code NO DIFF/SCN CRITERIA = MDIFF) COVID 19 INHOUSE [id number] 13:28:00 Test Item Value Reference Range Interpretation Comments COVID 19 INHOUSE AG NEGATIVE Negative Per manu facturer, (test code = negative result s should [id number]) be treated aspr esumptive and, if inconsi stent with clinical signs andsymptoms or necessary for patient man agement, should betested with an alternative mol ecular assay. Negative resultsdo not preclude SA RS-CoV-2 infection and s hould not be usedas the s ole basis for patient man agement decisions. Neg ative results should be considered in t he context of apatient's r ecent exposures, hist ory, presence of cli nicalsigns and symptoms co nsistent with COVID-19. COMPREHENSIVE METABOLIC [id number] 13:21:00 Test Item Value Reference Range Interpretation Comments SODIUM (test code = NA) 139 mmol/L 134-147 N POTASSIUM (test code = 4.0 mmol/L 3.4-5.0 N K) CHLORIDE (test code = 106 mmol/L 100-108 N CL) CARBON DIOXIDE (test 23 mmol/L 21-32 N code = CO2) ANION GAP (test code = 10.0 GAP calc 4.0-15.0 N GAP) GLUCOSE (test code = 108 MG/DL 70-110 N GLU) BLOOD UREA NITROGEN 19 MG/DL 7-18 H (test code = BUN) GLOMERULAR FILTRATION >=60 max estimate >60 RATE (test code = GFR) estGFR CREATININE (test code = 1.0 MG/DL 0.8-1.3 N CREAT) TOTAL PROTEIN (test code 6.6 G/DL 6.4-8.2 N = PROT) ALBUMIN (test code = 3.3 G/DL 3.4-5.0 L ALB) GLOBULIN (test code = 3.3 GM/dL GLOB) ALBUMIN/GLOBULIN RATIO 1.0 RATIO 1.2-2.2 L (test code = A/G) CALCIUM (test code = CA) 9.1 MG/DL 8.5-10.1 N BILIRUBIN TOTAL (test 0.50 MG/DL 0.2-1.2 N code = BILT) SGOT/AST (test code = 12 Unit/L 15-37 L AST) SGPT/ALT (test code = 16 Unit/L 12-78 N ALT) ALKALINE PHOSPHATASE 135 Unit/L 50-136 N TOTAL (test code = ALKP) PROTHROMBIN [id number] 13:06:00 Test Item Value Reference Range Interpretation Comments PT PATIENT (test code = PTP) 10.6 SECONDS 9.3-12.9 N INTERNATIONAL NORMAL RATIO 0.94 INR Unit 0.8-1.2 N (test code = INR) THROMBOPLASTIN TIME [id number] 13:06:00 Test Item Value Reference Range Interpretation Comments THROMBOPLASTIN TIME PARTIAL 26.1 SECONDS 26-35 N (test code = PTT) CBC W/AUTO [id number] 12:54:00 Test Item Value Reference Range Interpretation Comments WHITE BLOOD CELL (test code = 10.5 K/mm3 3.5-11.0 N WBC) RED BLOOD CELL (test code = 3.48 M/mm3 4.70-6.10 L RBC) HEMOGLOBIN (test code = HGB) 11.1 G/DL 12.3-15.9 L HEMATOCRIT (test code = HCT) 35.5 % 35.8-46.7 L MEAN CELL VOLUME (test code = 102.0 Fl 86.3-98.9 H MCV) MEAN CELL HGB (test code = MCH) 31.9 pg 28.9-34.4 N MEAN CELL HGB CONCETRATION 31.3 G/DL 32.1-34.5 L (test code = MCHC) RED CELL DISTRIBUTION WIDTH 14.3 SD 11.5-14.5 N (test code = RDW) PLATELET COUNT (test code = 268 K/mm3 150-450 N PLT) MEAN PLATELET VOLUME (test code 9.10 fL 7.0-9.6 N = MPV) NEUTROPHIL % (test code = NT%) 83.0 % 40-76 H IMMATURE GRANULOCYTE % (test 0.4 % 0.0-5.0 N code = IG%) LYMPHOCYTE % (test code = LY%) 11.0 % 20.5-51.1 L MONOCYTE % (test code = MO%) 4.7 % 1.7-9.3 N EOSINOPHIL % (test code = EO%) 0.4 % 0.0-6.0 N BASOPHIL % (test code = BA%) 0.5 % 0.0-2.0 N NUCLEATED RBC % (test code = 0.0 /100WBC% 0.0-1.0 N NRBC%) NEUTROPHIL # (test code = NT#) 8.7 K/mm3 1.8-7.6 H IMMATURE GRANULOCYTE # (test 0.04 x10 3/uL 0.00-0.03 H code = IG#) LYMPHOCYTE # (test code = LY#) 1.2 K/mm3 0.6-3.0 N MONOCYTE # (test code = MO#) 0.5 K/mm3 0.2-1.5 N EOSINOPHIL # (test code = EO#) 0.0 K/mm3 0.0-0.4 N BASOPHIL # (test code = BA#) 0.1 K/mm3 0.0-0.2 N NUCLEATED RBC # (test code = 0.0 K/mm3 0.00-0.01 N NRBC#) MANUAL DIFF REQUIRED (test code NO DIFF/SCN CRITERIA = MDIFF)
--- NOTE | 2020-04-21 06:40 | EDPHYS ---
Physician Documentation [facility] Name: Mk Paredes Age: 79 yrs Sex: Male : 1940 Arrival Date: 04/21/2020 Time: 06:13 Bed 3 Private MD: ED Physician Zaheer Busch HPI: 04/21 06:36 This 79 yrs old Male presents to ER via Unassigned with complaints of Post ma2 Surgical Bleeding. 06:36 The patient presents with a Blackman catheter problem, is not draining. Onset: The ma2 symptoms/episode began/occurred suddenly, gradually, 2 hour(s) ago. Associated signs and symptoms: Pertinent negatives: diarrhea, hematuria, nausea. Severity of symptoms: At their worst the symptoms were moderate, in the emergency department the symptoms are unchanged. The patient has experienced similar episodes in the past. hx of prostate ca s/p surgical resection has been passing clot, and his blackman gets clotted few times, here with no urine draning for 4-6 hrs, no other symptoms . Historical: - Allergies: 06:30 No Known Allergies; rr5 - PMHx: 06:30 Dementia; Hypertension; Prostate Cancer; ADD/ADHD; bladder cancer; rr5 - PSHx: 06:30 bladder surgery; rr5 - Immunization history:: Adult Immunizations up to date. - Social history:: Patient/guardian denies using alcohol, street drugs, The patient lives with family, Smoking status: unknown. - Family history:: not pertinent. ROS: 06:36 Constitutional: Negative for fever, chills, and weight loss, Eyes: Negative for injury, ma2 pain, redness, and discharge. 06:36 All other systems are negative. Exam: 06:36 Constitutional: This is a well developed, well nourished patient who is awake, alert, ma2 and in no acute distress. Neck: Trachea midline, no thyromegaly or masses palpated, and no cervical lymphadenopathy. Supple, full range of motion without nuchal rigidity, or vertebral point tenderness. No Meningismus. Chest/axilla: Normal chest wall appearance and motion. Nontender with no deformity. No lesions are appreciated. Cardiovascular: Regular rate and rhythm with a normal S1 and S2. No gallops, murmurs, or rubs. Normal PMI, no JVD. No pulse deficits. Respiratory: Lungs have equal breath sounds bilaterally, clear to auscultation and percussion. No rales, rhonchi or wheezes noted. No increased work of breathing, no retractions or nasal flaring. Abdomen/GI: Soft, non-tender, with normal bowel sounds. No distension or tympany. No guarding or rebound. No evidence of tenderness throughout. Male : Normal genitalia with no discharge or lesions. blackman not drainng MS/ Extremity: Pulses equal, no cyanosis. Neurovascular intact. Full, normal range of motion. Neuro: Awake and alert, GCS 15, oriented to person, place, time, and situation. Cranial nerves II-XII grossly intact. Motor strength 5/5 in all extremities. Sensory grossly intact. Cerebellar exam normal. Normal gait. Vital Signs: 06:30 BP 165 / 85; Pulse 99; Resp 16; Temp 98.5; Pulse Ox 98% ; Weight 95.25 kg; Height 5 ft. rr5 9 in. (175.26 cm); Pain 3/10; 07:00 BP 117 / 75; Pulse 75; Resp 19; Pulse Ox 99% ; rr5 06:30 Body Mass Index 31.01 (95.25 kg, 175.26 cm) rr5 MDM: 06:32 Patient medically screened. ma2 06:36 Differential diagnosis: urinary retention, Blackman catheter problem. Data reviewed: vital ma2 signs, nurses notes. Counseling: I had a detailed discussion with the patient and/or guardian regarding: the historical points, exam findings, and any diagnostic results supporting the discharge/admit diagnosis, the presence of at least one elevated blood pressure reading (>120/80) during this emergency department visit, the need for outpatient follow up. Response to treatment: the patient's symptoms have resolved after treatment, after flushing the blackman cath, urine is draining normally . 04/21 06:46 Order name: Bladder Scanner; Complete Time: 06:46 rr5 04/21 06:46 Order name: Bladder Irrigation; Complete Time: 06:46 rr5 Administered Medications: No medications were administered Disposition: 04/21/20 06:39 Discharged to Home. Impression: Encounter for fitting and adjustment of non-vascular catheter - blackman cath clogged. - Condition is Stable. - Discharge Instructions: Blackman Catheter Care, Adult, [id number]. - Medication Reconciliation Form, Thank You Letter, Antibiotic Education, Prescription Opioid Use form. - Follow up: Private Physician; When: Tomorrow; Reason: Continuance of care. Signatures: Zaheer Busch MD MD ma2 Milton Ambriz RN RN rr5 Corrections: (The following items were deleted from the chart) 07:03 06:39 04/21/2020 06:39 Discharged to Home. Impression: Encounter for fitting and rr5 adjustment of non-vascular catheter - blackman cath clogged. Condition is Stable. Forms are Medication Reconciliation Form, Thank You Letter, Antibiotic Education, Prescription Opioid Use. Follow up: Private Physician; When: Tomorrow; Reason: Continuance of care. [email or web address]
--- NOTE | 2020-04-21 07:04 | ER ---
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 no urine rr5 draining in the bag. last Monday he had a bladder surgery then last Monday we went to ER because it was clogged with blood clots now it look likes its clogged up again no urine in the bag. 06:30 Coronavirus screen: Client denies travel out of the [place] in the last 14 days. At this rr5 time, the client does not indicate any symptoms associated with coronavirus-19. Ebola Screen: Patient negative for fever greater than or equal to 101.5 degrees Fahrenheit, and additional compatible Ebola Virus Disease symptoms Patient denies exposure to infectious person. Patient denies travel to an Ebola-affected area in the 21 days before illness onset. Initial Sepsis Screen: Does the patient meet any 2 criteria? No. Patient's initial sepsis screen is negative. Does the patient have a suspected source of infection? No. Patient's initial sepsis screen is negative. Risk Assessment: Do you want to hurt yourself or someone else? Patient reports no desire to harm self or others. Onset of symptoms was April 21, 2020. 06:30 Method Of Arrival: Wheelchair rr5 06:30 Acuity: SILVIA 4 rr5 Triage Assessment: 06:30 General: Appears in no apparent distress. uncomfortable, Behavior is calm, cooperative. rr5 Historical: - Allergies: 06:30 No Known Allergies; rr5 - PMHx: 06:30 Dementia; Hypertension; Prostate Cancer; ADD/ADHD; bladder cancer; rr5 - PSHx: 06:30 bladder surgery; rr5 - Immunization history:: Adult Immunizations up to date. - Social history:: Patient/guardian denies using alcohol, street drugs, The patient lives with family, Smoking status: unknown. - Family history:: not pertinent. Screenin:35 Abuse screen: Denies threats or abuse. Denies injuries from another. Nutritional rr5 screening: No deficits noted. Tuberculosis screening: No symptoms or risk factors identified. Fall Risk None identified. Total Barr Fall Scale indicates No Risk (0-24 pts). Assessment: 06:30 General: Appears in no apparent distress. uncomfortable, Behavior is calm, cooperative, rr5 appropriate for age. 06:30 Pain: Complains of pain in pelvis Pain currently is 3 out of 10 on a pain scale. rr5 Quality of pain is described as aching, Pain began gradually, Is intermittent. Neuro: Level of Consciousness is awake, alert, obeys commands, Oriented to person, place, time. Cardiovascular: Capillary refill < 3 seconds Patient's skin is warm and dry. Respiratory: Airway is patent Respiratory effort is even, unlabored, Respiratory pattern is regular, symmetrical. GI: Abdomen is round. : 3-way catheter in place to gravity drainage Reports inability to void, pain diaper wet noted catheter tube and bag is dry. EENT: No signs and/or symptoms were reported regarding the EENT system. Derm: Skin is pink, warm \T\ dry. Musculoskeletal: Capillary refill < 3 seconds. 06:31 Reassessment: bladder scan done, seen and examined by ED provider with order for rr5 bladder irrigation. 06:40 Reassessment: positive urine output after the bladder irrigation. rr5 07:03 Reassessment: Patient appears in no apparent distress at this time. discharge rr5 instruction given and explained without complaints made' Patient states feeling better. Patient states symptoms have improved. Vital Signs: 06:30 BP 165 / 85; Pulse 99; Resp 16; Temp 98.5; Pulse Ox 98% ; Weight 95.25 kg; Height 5 ft. rr5 9 in. (175.26 cm); Pain 3/10; 07:00 BP 117 / 75; Pulse 75; Resp 19; Pulse Ox 99% ; rr5 06:30 Body Mass Index 31.01 (95.25 kg, 175.26 cm) rr5 ED Course: 06:13 Patient arrived in ED. cl3 06:32 Zaheer Busch MD is Attending Physician. ma2 06:32 Bladder scan completed. 922 ml. rr5 06:35 Arm band placed on right wrist. rr5 06:35 No provider procedures requiring assistance completed. Bladder scan completed. 24ml rr5 post irrigation. Patient did not have IV access during this emergency room visit. 06:36 Patient has correct armband on for positive identification. Bed in low position. Call rr5 light in reach. Side rails up X2. 06:41 Milton Ambriz, RN is Primary Nurse. rr5 06:44 Triage completed. rr5 Administered Medications: No medications were administered Intake: 06:58 PO: 0ml; Total: 0ml. rr5 Output: 06:58 Urine: 850ml (Blackman); Total: 850ml. rr5 Outcome: 06:39 Discharge ordered by . joe 07:00 Discharged to home via wheelchair, with family. 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 Demonstrated understanding of instructions, follow-up care. 07:03 Patient left the ED. rr5 Signatures: Zaheer Busch MD MD ma2 Roque, Raymond, RN RN rr5 Jose Enrique Domínguez cl3 Corrections: (The following items were deleted from the chart) 07:22 07:22 Reassessment: Patient appears in no apparent distress at this time. discharge rr5 instruction given and explained without complaints made' Patient states feeling better. Patient states symptoms have improved. rr5
== END 2020-04-21 07:03 | disposition home or self-care (01) ==
CPT/HCPCS: 99281